=== PATIENT | female | born 1945 | race Caucasian/White ===

== ENCOUNTER → 2016-10-21 | Outpatient (CLI) | payer BC ==
[~2016-10-21] MED LIST: ASPEC81 PO; ATOR-24 PO; CALCTAB5 PO; CHOL1TAB46 PO; COEN100C6 PO; CZR50 PO; IPRA1AER2 INH; METH10TA6 PO; METO25TA56 PO; MULTTAB58 PO; OMEG-13 PO; OMEP40CA41 PO; OXGN; PSYL55.43 PO; SYMIN INH; WARF3TAB6 PO
[2016-10-21 17:08] LABS: THYROID STIMULATING HORMONE 0.562 uIu/ml (0.300-4.500)
== END | disposition home or self-care (01) ==
LOC: C.LABBC 13:13
PROVIDERS: ATTEND Internal Medicine Endocrinology, Diabetes & Metabolism
DX: R94.6 Abnormal results of thyroid function studies (principal)

== ENCOUNTER → 2016-12-21 | Outpatient (CLI) | payer BC ==
[2016-12-21 17:14] LABS: THYROID STIMULATING HORMONE 0.469 uIu/ml (0.300-4.500)
== END | disposition home or self-care (01) ==
LOC: C.LABBC 14:14
PROVIDERS: ATTEND Internal Medicine Endocrinology, Diabetes & Metabolism
DX: R94.6 Abnormal results of thyroid function studies (principal)

== ENCOUNTER → 2017-01-03 | Outpatient (CLI) | payer BC ==
[~2017-01-03] MED LIST changes: +OPTIRAY 320 IV PRN
--- NOTE | 2017-01-03 16:10 | DIAGNOSTIC IMAGING REPORT ---
CT OF THE ABDOMEN WITH AND WITHOUT CONTRAST ADRENAL PROTOCOL CT DOSE: 1802.49 mGycm CLINICAL HISTORY: Incidental adrenal cortical adenoma. TECHNIQUE: Unenhanced, venous and 15 minute delayed phase imaging of the abdomen was performed. Injection of 119 cc Optiray 320 IV was uneventful. COMPARISON STUDY: Chest CT April 07, 2014. FINDINGS: There is fatty infiltration of liver. There are gallstones within the gallbladder. A 1.2 cm nodular focus along the gallbladder fundus is unchanged and suggests adenomyomatosis. The spleen, kidneys and pancreas are normal. There is no biliary or pancreatic ductal dilatation. There is no abdominal lymphadenopathy. Note is made of a 1.4 cm right adrenal nodule which has an attenuation of -9 Hounsfield units on the unenhanced portion of this exam. This demonstrates significant washout of greater than 60%. The attenuation on the venous phase is 35 Hounsfield units and the attenuation on the delayed phase is 1 Hounsfield units. Nodule is similar to exam of April 07, 2014. A 1.5 cm left adrenal nodule is similar to prior CT as well. The attenuation of this nodule on the unenhanced portion of this exam is -13 Hounsfield units. The attenuation on the venous phase is 31 Hounsfield units and the attenuation on the delayed phases 7 Hounsfield units. This demonstrates greater than 60% washout. IMPRESSION: 1. 1.4 cm right adrenal nodule and 1.5 cm left adrenal nodule which have not significantly changed since CT of April 07, 2014. The imaging characteristics are consistent with bilateral adrenal adenomas. 2. Fatty liver. 3. Cholelithiasis. Electronically signed by: Rick Singleton M.D. 01/03/2017 4:09 PM Dictated Date/Time: 01/03/2017 3:42 PM
== END | disposition home or self-care (01) ==
LOC: C.CTS 14:13
PROVIDERS: ATTEND Internal Medicine Endocrinology, Diabetes & Metabolism
DX: D35.00 Benign neoplasm of unspecified adrenal gland (principal)

== ENCOUNTER → 2017-01-18 | Outpatient (CLI) | payer BC ==
[~2017-01-18] MED LIST changes: -OPTIRAY 320 IV PRN
[2017-01-19 06:06] LABS: ESTIMATED AVERAGE GLUCOSE 131 mg/dl; HA1C FLAG Normal (Normal)
--- NOTE | 2017-01-25 14:07 | CODING QUERY MEDICAL NECESSITY ---
CQSUPPORTING DIAGNOSIS NEEDED A supporting diagnosis is required for the test/procedure performed on this patient in order for us to be reimbursed by the patient's insurance. Please provide a supporting diagnosis for the following test/procedure listed below next to the test name along with your signature. *If there is no additional diagnosis for this patient that would support the following test/procedure please document that below next to the test/procedure. Test(s)/Procedure(s) that require a supporting diagnosis: ARYAN 01/18/17 GLYCATED HEMOGLOBIN TEST Provider Signature: Date: Thank you Janey Zelaya Health Information Management Once completed, please kindly fax back to [phone] For questions please call [phone]
== END | disposition home or self-care (01) ==
LOC: C.LABBC 11:39
PROVIDERS: ATTEND Family Medicine
DX: Z11.59 Encounter for screening for other viral diseases (principal); R73.03 Prediabetes

== ENCOUNTER → 2017-03-15 | Outpatient (CLI) | payer BC ==
--- NOTE | 2017-03-15 15:43 | MAMMOGRAPHY REPORT ---
BILATERAL DIGITAL SCREENING MAMMOGRAM WITH CAD: 03/15/2017 CLINICAL HISTORY: Routine screening. Patient has no complaints. TECHNIQUE: Bilateral CC and MLO views, and right cleavage views were obtained. Current study was als o evaluated with a Computer Aided Detection (CAD) system. COMPARISON: Comparison is made to exams dated: 03/14/2016 mammogram, 03/11/2015 mammogram, 03/10/2014 m ammogram, 02/07/2011 mammogram, 02/04/2010 mammogram - [facility], and 12/19/2008. BREAST COMPOSITION: There are scattered areas of fibroglandular density in both breasts. FINDINGS: There is a stable bilobed lucent centered circumscribed mass in the upper outer posterior r ight breast, most likely an intramammary lymph node. A stable ribbon shaped metallic biopsy marker i n the right upper outer quadrant. Bilateral benign appearing rim and rodlike calcifications. No aristides picious mass, architectural distortion or cluster of suspicious microcalcifications is seen. IMPRESSION: ACR BI-RADS CATEGORY 1: NEGATIVE There is no mammographic evidence of malignancy. A 1 year screening mammogram is recommended. The pa tient will receive written notification of the results. Approximately 10% of breast cancers are not detected with mammography. A negative mammographic report should not delay biopsy if a clinically suggestive mass is present. Chelsea López M.D. ay/:03/15/2017 14:49:57 Construction Supervisor: Karen HERRERA(Aayush)(Bijan)(BD), [facility] letter sent: Normal 1/2 BI-RADS Code: ACR BI-RADS Category 1: Negative
== END | disposition home or self-care (01) ==
LOC: C.MAMM 10:47
PROVIDERS: ATTEND Physician Assistant Medical
DX: Z12.31 Encounter for screening mammogram for malignant neoplasm of breast (principal)

== ENCOUNTER → 2017-05-04 | Outpatient (CLI) | payer BC ==
[2017-05-04 13:42] LABS: HEMATOCRIT 42.9 % (37-47); MEAN CORPUSCULAR HEMOGLOBIN 29.5 pg (25-34); MEAN CORPUSCULAR HGB CONC 33.1 g/dl (32-36); MEAN PLATELET VOLUME 11.5 fL (7.4-10.4); PLATELET COUNT 231 K/uL (130-400); RED BLOOD COUNT 4.82 M/uL (4.2-5.4)
[2017-05-04 14:35] LABS: ALT/SGPT 33 U/L (12-78); AST/SGOT 16 U/L (15-37); BLOOD UREA NITROGEN 12 mg/dl (7-18); BUN/CREATININE RATIO 13.7 (10-20); CALCIUM 8.9 mg/dl (8.5-10.1); CARBON DIOXIDE 27 mmol/L (21-32); CHLORIDE 107 mmol/L (98-107); CREATININE 0.86 mg/dl (0.60-1.20); GLUCOSE 100 mg/dl (70-99); POTASSIUM 4.3 mmol/L (3.5-5.1); SODIUM 141 mmol/L (136-145)
== END | disposition home or self-care (01) ==
LOC: C.LABBC 09:19
PROVIDERS: ATTEND Internal Medicine Cardiovascular Disease
DX: E78.00 Pure hypercholesterolemia, unspecified (principal); I10 Essential (primary) hypertension; I25.10 Atherosclerotic heart disease of native coronary artery without angina pectoris; I48.0 Paroxysmal atrial fibrillation; E55.9 Vitamin D deficiency, unspecified

== ENCOUNTER → 2017-11-03 | Outpatient (CLI) | payer BC ==
[2017-11-03 13:24] LABS: HEMATOCRIT 44.8 % (37-47); HEMOGLOBIN 14.7 g/dL (12.0-16.0); MEAN CELL VOLUME 88.7 fL (80-100); MEAN CORPUSCULAR HEMOGLOBIN 29.1 pg (25-34); MEAN CORPUSCULAR HGB CONC 32.8 g/dl (32-36); MEAN PLATELET VOLUME 10.8 fL (7.4-10.4); PLATELET COUNT 240 K/uL (130-400); RED CELL DISTRIBUTION WIDTH CV 15.6 % (11.5-14.5); RED CELL DISTRIBUTION WIDTH SD 49.9 fL (36.4-46.3); WHITE BLOOD COUNT 11.05 K/uL (4.8-10.8)
[2017-11-03 14:07] LABS: ALT/SGPT 40 U/L (12-78); AST/SGOT 16 U/L (15-37); BLOOD UREA NITROGEN 19 mg/dl (7-18); CALCIUM 9.3 mg/dl (8.5-10.1); CARBON DIOXIDE 30 mmol/L (21-32); CREATININE 0.88 mg/dl (0.60-1.20); GLUCOSE 100 mg/dl (70-99); POTASSIUM 4.2 mmol/L (3.5-5.1); SODIUM 139 mmol/L (136-145)
[2017-11-03 14:21] LABS: CHOLESTEROL 144 mg/dl (0-200); LDL CHOLESTEROL CALCULATED 56 mg/dl
== END | disposition home or self-care (01) ==
LOC: C.LABBC 09:18
PROVIDERS: ATTEND Internal Medicine Cardiovascular Disease
DX: E05.00 Thyrotoxicosis with diffuse goiter without thyrotoxic crisis or storm (principal); F17.200 Nicotine dependence, unspecified, uncomplicated; I25.10 Atherosclerotic heart disease of native coronary artery without angina pectoris; I10 Essential (primary) hypertension; I48.0 Paroxysmal atrial fibrillation; I65.29 Occlusion and stenosis of unspecified carotid artery

== ENCOUNTER → 2018-03-20 | Outpatient (CLI) | payer BC ==
[~2018-03-20] MED LIST changes: -ASPEC81 PO; +ASPI-320 PO; +AZIT-57 PO; -CALCTAB5 PO; -METH10TA6 PO; -PSYL55.43 PO; +SPRIN INH
--- NOTE | 2018-03-22 07:55 | MAMMOGRAPHY REPORT ---
BILATERAL DIGITAL SCREENING MAMMOGRAM TOMOSYNTHESIS WITH CAD: 03/20/2018 CLINICAL HISTORY: Routine screening. Patient has no complaints. TECHNIQUE: The study was acquired using full field digital technology and interpreted from soft copy. Breast tomosynthesis in addition to standard 2D mammography was performed. Current study was also ev aluated with a Computer Aided Detection (CAD) system. COMPARISON: Comparison is made to exams dated: 03/15/2017 mammogram, 03/14/2016 mammogram, and 03/11/20 15 mammogram - [facility]. BREAST COMPOSITION: There are scattered areas of fibroglandular density in both breasts. FINDINGS: There is stable focal asymmetry in the upper outer posterior right breast that appears shannan lar dating back to at least 2008, therefore likely benign. A stable ribbon-shaped biopsy marker clip is also seen in the right upper outer posterior breast. There are diffuse bilateral rodlike secreto ry calcifications and scattered benign coarse calcifications. No suspicious mass, architectural disto rtion or cluster of microcalcifications is seen. IMPRESSION: ACR BI-RADS CATEGORY 1: NEGATIVE There is no mammographic evidence of malignancy. A 1 year screening mammogram is recommended.( 019) The patient will receive written notification of the results. Some breast cancers are not detected with mammography. A negative mammographic report should not guerita y biopsy if a clinically suggestive mass is present. Chelsea López M.D. ay/:03/20/2018 16:12:36 Billet Examiner: RT Jorge(R)(M), [facility] letter sent: Normal 1/2 BI-RADS Code: ACR BI-RADS Category 1: Negative
== END | disposition home or self-care (01) ==
LOC: C.MAMM 13:04
PROVIDERS: ATTEND Physician Assistant Medical
DX: Z12.31 Encounter for screening mammogram for malignant neoplasm of breast (principal)

== ENCOUNTER 2019-10-16 03:45 | Inpatient (IN) ==
[2019-10-16 05:09] LABS: Basophils # (auto) 0.03 K/uL (0-0.2); Basophils % (auto) 0.3 %; Hematocrit (blood only) 42.2 % (37-47); Hemoglobin 13.8 g/dL (12.0-16.0); Immature Granulocytes # (auto) 0.03 K/uL (0.00-0.02); Immature Granulocytes % (auto) 0.3 %; Lymphocytes # (auto) 0.97 K/uL (1.2-3.4); Mean Corpuscular Hemoglobin 29.1 pg (25-34); Mean Corpuscular Hgb Conc 32.7 g/dL (32-36); Mean Corpuscular Volume 88.8 fL (80-100); Mean Platelet Volume 10.8 fL (7.4-10.4); Monocytes # (auto) 0.48 K/uL (0.11-0.59); Monocytes % (auto) 4.9 %; Neutrophils # (auto) 8.23 K/uL (1.4-6.5); Neutrophils % (auto) 84.5 %; Platelet Count 205 K/uL (130-400); RDW Coefficient of Variation 15.2 % (11.5-14.5); RDW Standard Deviation 49.4 fL (36.4-46.3); Red Blood Count 4.75 M/uL (4.2-5.4); White Blood Count 9.74 K/uL (4.8-10.8)
[2019-10-16 05:21] LABS: INR 1.9 (0.9-1.1); Partial Thromboplastin Ratio 1.3; Partial Thromboplastin Time 34.9 Seconds (21.0-31.0); Prothrombin Time 18.5 Seconds (9.0-12.0)
[2019-10-16 05:26] LABS: Albumin Level 3.5 gm/dl (3.4-5.0); BUN Creatinine Ratio 19.9 (10-20); Calcium 9.1 mg/dl (8.5-10.1); Creatinine Clr Calc Pharmacy 69.1 ml/min; Est GFR (African American) 75.5; Est GFR (Non-African American) 65.2; Potassium 4.6 mmol/L (3.5-5.1)
[2019-10-16 05:29] LABS: Albumin Globulin Ratio 0.9 (0.9-2); Bilirubin,Total 0.3 mg/dl (0.2-1); Globulin 3.9 gm/dl (2.5-4.0); Total Protein 7.4 gm/dl (6.4-8.2)
[2019-10-16 05:46] LABS: Appearance Urine Clear (Clear); Bacteria Urine Automated Negative (Negative); Bilirubin Urine Negative (Negative); Blood Urine 2+ (Negative); Color Urine Yellow; Epithelial Cell Urine Auto 20-30 /lpf (0-5); Glucose Urine UA Negative (Negative); Ketones Urine Negative (Negative); Leukocyte Esterase Urine Negative (Negative); Nitrite Urine Negative (Negative); Protein Urine 2+ (Negative); RBC Urine Automated 0-4 /hpf (0-4); Specific Gravity Urine 1.019 (1.000-1.030); Urobilinogen Urine Negative (Negative)
[2019-10-16 06:17] LABS: Troponin I 0.017 ng/ml (0-0.045)
--- NOTE | 2019-10-16 06:57 | XRay Report ---
XR chest 1V portable CLINICAL HISTORY: SOB dyspnea COMPARISON STUDY: 01/23/2018 FINDINGS: Mild stable cardiac megaly. Chronic prominence of the pulmonary vasculature. Diaphragms are smooth. No focal infiltrate. IMPRESSION: Mild chronic pulmonary vascular congestion. No acute process. ACT 112: Negative or not required by law. The above report was generated using voice recognition software. It may contain grammatical, syntax or spelling errors. Electronically signed by: Paulo Castillo M.D. 10/16/2019 6:56 AM
[2019-10-16] MEDS ORDERED: FUROSEMIDE 40 MG/4 ML VIAL IV STA (07:03)
--- NOTE | 2019-10-16 07:51 | History & Physical Report ---
Date of Service October 16, 2019 Assessment & Plan (1) Acute on chronic respiratory failure with hypoxia: patient normally on 2.5-3L NC and wears CPAP every night with more dyspnea, more hypoxia and work of breathing for past 48 hours she had some steroids and "antibiotic" at home that made her feel a little better CXR with no obvious infiltrate, some mild pulmonary edema will give Lasix 40mg IV (in the ED) and follow response keep CPAP in place for now because she is feeling better on it Solu Medrol 50 q12, use Levalbuterol because she was flipping in and out of atrial flutter in the ED (2) Acute heart failure with preserved ejection fraction: echo in August 2019 showed EF of 65%, will not repeat at this time Lasix 40mg IV given in the Ed, will follow for response today continue metoprolol (3) Atrial flutter: in and out of atrial flutter in the ED, has a h/o afib and aflutter, on metoprolol and Coumadin INR is 1.9, continue Coumadin will receive metoprolol this morning admit to PCU for close monitoring will consult Dr. Morfin who follows her outpatient, has a h/o tachy alicia syndrome (4) COPD exacerbation: no wheezing heard but patient also has decreased breath sounds will give Solu medrol 50 q12, Levalbuterol no signs of purulence so will hold on antibiotics (5) Type 2 diabetes mellitus: diabetic diet Novolog monitor for hyperglycemia on the Solu Medrol (6) Hypercholesterolemia: statin therapy (7) CAD in [place] artery: no chest pain, no ischemic changes on the monitor continue aspirin, statin (8) S/P coronary artery stent placement: had NV in 2014 with one stent placed no current chest pain continue aspirin (9) Obstructive sleep apnea: CPAP at night, she brought in her own machine, may use History of Present Illness Chief Complaint: I feel like I can't breath Primary Care Provider: Dakotah Holliday, DO 74 yo female with long history of COPD on Symbicort, Spiriva and nebulizers at home as well as a history of paroxysmal atrial fibrillation/flutter who presents to the ED this morning due to worsening shortness of breath. She reports that her symptoms started two days ago, she took some antibiotics and steroids that she had at home from prior prescription. She says that the steroids seemed to help her. She did not have a cough, just noticed that she was more short of breath. No fever or chills. She did not see any swelling in her legs. She does not routinely take her weight so unsure if she gained weight. Her breathing started to get worse so she came to the ED this morning. She was given a nebulizer in the ambulance and placed on BIPAP. She was breathing more comfortably on the BIPAP. She was in atrial flutter on the monitor but converted to NSR after coughing. CXR showed bilateral pulmonary edema. Her BNP was slightly elevated. She was given Lasix 40mg IV in the ED and started to diurese. Discussed with her daughter, she has a history of non-compliance and self medicating. Allergies Allergy/AdvReac Type Severity Reaction Status Date / Time cephalexin AdvReac Mild PT BECOMES Verified 10/16/19 05:33 ANXIOUS lisinopril AdvReac Mild COUGH Verified 10/16/19 05:33 Home Medications Home Medications Medication Instructions Recorded Confirmed Type budesonide-formoterol HFA 160 2 puffs INH BID #6 gm 01/29/19 10/16/19 Rx mcg-4.5 mcg/actuation aerosol inhaler blood sugar diagnostic #100 ea 01/30/19 08/05/19 Rx lancets 30 gauge #100 ea 01/30/19 08/05/19 Rx Spiriva with HandiHaler 1 cap INH QAM 03/15/19 10/16/19 History aspirin 81 mg PO QAM 03/15/19 10/16/19 History cannabidiol 15 mg PO QAM 03/15/19 10/16/19 History coenzyme Q10 [Co Q-10] 100 mg PO QAM 03/15/19 10/16/19 History omega 0-yju-nxn-fish oil [Fish Oil] 1 cap PO QAM 03/15/19 10/16/19 History omeprazole 40 mg PO QAM 03/15/19 10/16/19 History CPAP Machine #1 ea 03/30/19 07/17/19 History Oxygen Home #1 ea 03/30/19 07/17/19 History blood sugar diagnostic #10 ea 03/30/19 08/05/19 History lancets 33 gauge #100 ea 03/30/19 06/06/19 History atorvastatin 40 mg tablet 40 mg PO HS #90 tab 04/15/19 10/16/19 Rx losartan 50 mg tablet 50 mg PO QAM #90 tab 04/15/19 10/16/19 Rx warfarin 1 mg tablet 1 mg PO .COMPLEX #360 tab 05/07/19 10/16/19 Rx calcium carbonate 600 mg calcium 600 mg PO DAILY tab 05/24/19 10/16/19 History (1,500 mg) tablet ipratropium 0.5 mg-albuterol 3 mg 3 ml INHALATION QID #360 ml 07/18/19 10/16/19 Rx (2.5 mg base)/3 mL nebulization soln metoprolol tartrate 25 mg tablet 25 mg PO BID #180 tab 07/30/19 10/16/19 Rx albuterol sulfate 90 mcg/actuation 2 puffs INH Q6H PRN #54 gm 08/05/19 10/16/19 Rx aerosol inhaler cholecalciferol (vitamin D3) 1,000 unit PO 5XWK 10/16/19 10/16/19 History [Vitamin D3] zmmlabeb-lwl-VC-lycopen-lutein 1 tab PO DAILY 10/16/19 10/16/19 History [Senior Tabs] Past Med/Surg History Medical History Anxiety CAD in [place] artery (Chronic) Carotid artery stenosis Chronic obstructive pulmonary disease oxygen, nebulizer qid, inhalers COPD, severe (Chronic) Dependence on supplemental oxygen (Chronic) Depression GERD (gastroesophageal reflux disease) History of colon polyps History of colon polyps HTN (hypertension) (Chronic) Hypercholesterolemia (Chronic) Hyperlipidemia Hypertension Irregular heart rate from as low as 40 up to afib--started on Multaq 02/15/2019--pt states she has not had "any episodes of low heart rate or afib in the last 2 weeks"--follows with Dr. Morfin Laryngopharyngeal reflux (Chronic) senior living (current) use of anticoagulants Myocardial Infarction 09/2014 Obstructive sleep apnea (Chronic) On anticoagulant therapy warfarin daily On home oxygen therapy 2-3L N/C at all times Osteoarthritis Paroxysmal atrial fibrillation (Chronic) Personal history of nicotine dependence Prediabetes Sleep apnea cpap with 2.5L N/C Type 2 diabetes mellitus (Chronic) Surgical History History of arthroscopy of left knee History of arthroscopy of right knee History of bilateral cataract extraction History of cardiac cath 09/[address] [facility] follow with Dr. Morfin History of colonoscopy History of heart artery stent x1 09/2014 History of tooth extraction S/P coronary artery stent placement Status post laser cataract surgery of both eyes had procedure done after cataract removal Status post trigger finger release left hand thumb Family History Grandmother (Maternal) Family history of diabetes mellitus Mother Family hx of colon cancer Other No family history of adverse response to anesthesia Social History Preferred Language: Bruneian Communication Ability: Effective Hearing Ability: Normal Kids Club Attendant Required: No Beliefs That Will Affect Care: None marital status: / Current Living Situation: Alone current occupational status: retired Other Information That Helps Us Care for You: No Feels Safe at Home: Yes Safety Concerns: Feels Safe At This Time Smoking Status: Former smoker Tobacco Type: cigarettes ; Age Started Using Tobacco: 16 ; Cigarettes Per Day: 1 pack a week ; Do You Dip or Chew Tobacco: No ; Second Hand Exposure: No ; Tobacco Cessation Education Requested by Patient: No Hx Alcohol Use: No Hx Substance Use: No Childhood Exposure to Second-Hand Smoke: Yes caffeine: Yes Dental Care, Regularly: No Seatbelt Use: always Sunscreen Use: No Review of Systems Review of Systems: All systems reviewed & are unremarkable except as noted in HPI & below Constitutional: + fatigue and + weakness; no fever and no sweats Respiratory: + cough, + dyspnea and + dyspnea on exertion; no pain with cough, no sputum production and no wheezing Cardiovascular: + dyspnea and + dyspnea on exertion; no chest pain, no palpitations, no syncope and no edema Gastrointestinal: no abdominal pain, no nausea, no vomiting, no constipation and no diarrhea/loose stools Physical Exam Constitutional: well developed, well nourished, + obese and + in distress (mild) Eyes: PERRL, conjunctivae normal, anicteric sclerae ENMT: external ear and nose normal, oropharynx normal Neck: trachea midline, no thyromegaly Respiratory: + labored breathing, + cough and + tachypneic Auscultation: + diminished lung sounds and + rales (bases); no wheezes Cardiovascular: Rate/Rhythm: + tachycardic and + irregularly irregular Heart Sounds: normal S1 and normal S2; no murmur Extremities: normal capillary refill; no edema Gastrointestinal (Abdomen): normal bowel sounds, soft, nontender, no hepatosplenomegaly Musculoskeletal: no cyanosis or clubbing, extremities motor strength 5/5 Skin: no rashes, warm and dry Neurologic: patellar DTR's 2+ bilat, sensation intact and PERRL, EOMI, accommodation nl, no face palsy, no dysarthria Psychiatric: A+Ox3, euthymic affect Lymphatic: no cervical or axillary lymphadenopathy Results & Data Vital Signs (Past 12 Hours) Vital Signs Temp Pulse Pulse Resp BP BP Pulse Ox 10/16/19 07:14 88 18 114/81 96 10/16/19 06:34 148 H 114/81 97 10/16/19 05:38 152 H 24 125/85 97 10/16/19 05:02 37.1 C 10/16/19 05:01 95 10/16/19 04:56 148 H 37 H 96 10/16/19 04:42 89 20 125/65 97 10/16/19 04:37 155 H 16 133/100 97 10/16/19 03:55 154 H 26 H 133/100 96 10/16/19 03:36 26 H 96 Laboratory Results Laboratory Results - last 24 hr 10/16/19 10/16/19 10/16/19 04:55 04:55 04:55 WBC 9.74 RBC 4.75 Hgb 13.8 Hct 42.2 MCV 88.8 MCH 29.1 MCHC 32.7 RDW Std Deviation 49.4 H RDW Coeff of Mark 15.2 H Plt Count 205 MPV 10.8 H Immature Gran % (Auto) 0.3 Neut % (Auto) 84.5 Lymph % (Auto) 10.0 Porter % (Auto) 4.9 Eos % (Auto) 0.0 Baso % (Auto) 0.3 Immature Gran # (Auto) 0.03 H Neut # (Auto) 8.23 H Lymph # (Auto) 0.97 L Porter # (Auto) 0.48 Eos # (Auto) 0.00 Baso # (Auto) 0.03 PT 18.5 H INR 1.9 H APTT 34.9 H PTT Ratio 1.3 Sodium 136 Potassium 4.6 Chloride 105 Carbon Dioxide 26 Anion Gap 5.0 BUN 17 Creatinine 0.88 Est Cr Clr Drug Dosing 69.1 Est GFR ( Amer) 75.5 Est GFR (Non-Af Amer) 65.2 BUN/Creatinine Ratio 19.9 Glucose 155 H POC Glucose Calcium 9.1 Total Bilirubin 0.3 AST 33 ALT 50 Alkaline Phosphatase 54 Troponin I NT-Pro-B Natriuret Pep Total Protein 7.4 Albumin 3.5 Globulin 3.9 Albumin/Globulin Ratio 0.9 Urine Color Urine Appearance Urine pH Ur Specific [place] Urine Protein Urine Glucose (UA) Urine Ketones Urine Blood Urine Nitrite Urine Bilirubin Urine Urobilinogen Ur Leukocyte Esterase Urine WBC (Auto) Urine RBC (Auto) U Hyaline Cast (Auto) U Epithel Cells (Auto) Urine Bacteria (Auto) Influenza Type A Ag Influenza Type B Ag 10/16/19 10/16/19 10/16/19 04:55 04:55 05:35 WBC RBC Hgb Hct MCV MCH MCHC RDW Std Deviation RDW Coeff of Mark Plt Count MPV Immature Gran % (Auto) Neut % (Auto) Lymph % (Auto) Porter % (Auto) Eos % (Auto) Baso % (Auto) Immature Gran # (Auto) Neut # (Auto) Lymph # (Auto) Porter # (Auto) Eos # (Auto) Baso # (Auto) PT INR APTT PTT Ratio Sodium Potassium Chloride Carbon Dioxide Anion Gap BUN Creatinine Est Cr Clr Drug Dosing Est GFR ( Amer) Est GFR (Non-Af Amer) BUN/Creatinine Ratio Glucose POC Glucose Calcium Total Bilirubin AST ALT Alkaline Phosphatase Troponin I 0.017 NT-Pro-B Natriuret Pep 1786 H Total Protein Albumin Globulin Albumin/Globulin Ratio Urine Color Yellow Urine Appearance Clear Urine pH 5.0 Ur Specific [place] 1.019 Urine Protein 2+ H Urine Glucose (UA) Negative Urine Ketones Negative Urine Blood 2+ H Urine Nitrite Negative Urine Bilirubin Negative Urine Urobilinogen Negative Ur Leukocyte Esterase Negative Urine WBC (Auto) 1-5 Urine RBC (Auto) 0-4 U Hyaline Cast (Auto) 1-5 U Epithel Cells (Auto) 20-30 H Urine Bacteria (Auto) Negative Influenza Type A Ag Neg for Influ A Influenza Type B Ag Neg for Influ B 10/16/19 10/16/19 11:56 16:21 WBC RBC Hgb Hct MCV MCH MCHC RDW Std Deviation RDW Coeff of Mark Plt Count MPV Immature Gran % (Auto) Neut % (Auto) Lymph % (Auto) [place] % (Auto) Eos % (Auto) Baso % (Auto) Immature Gran # (Auto) Neut # (Auto) Lymph # (Auto) Porter # (Auto) Eos # (Auto) Baso # (Auto) PT INR APTT PTT Ratio Sodium Potassium Chloride Carbon Dioxide Anion Gap BUN Creatinine Est Cr Clr Drug Dosing Est GFR ( Amer) Est GFR (Non-Af Amer) BUN/Creatinine Ratio Glucose POC Glucose 165 H 130 H Calcium Total Bilirubin AST ALT Alkaline Phosphatase Troponin I NT-Pro-B Natriuret Pep Total Protein Albumin Globulin Albumin/Globulin Ratio Urine Color Urine Appearance Urine pH Ur Specific [place] Urine Protein Urine Glucose (UA) Urine Ketones Urine Blood Urine Nitrite Urine Bilirubin Urine Urobilinogen Ur Leukocyte Esterase Urine WBC (Auto) Urine RBC (Auto) U Hyaline Cast (Auto) U Epithel Cells (Auto) Urine Bacteria (Auto) Influenza Type A Ag Influenza Type B Ag Diagnostic Findings XR chest 1V portable CLINICAL HISTORY: SOB dyspnea COMPARISON STUDY: 01/23/2018 FINDINGS: Mild stable cardiac megaly. Chronic prominence of the pulmonary vasculature. Diaphragms are smooth. No focal infiltrate. IMPRESSION: Mild chronic pulmonary vascular congestion. No acute process. ECG Indication: SOB/dyspnea Rhythm: atrial flutter (rate 140) Findings: no acute ischemic change Code Status & VTE Plan Code Status full code VTE Prophylaxis Plan VTE Prophylaxis will be ordered: Yes PG Care Time/CCT Total # of Minutes Spent Total Time Spent with Patient: Total time spent is greater than 50% in coordination of care (as documented) at patient's floor/unit and/or counseling patient: Coding Level of Care Code 32453 Initial Inpt Care Lvl 3 Diagnoses Acute on chronic respiratory failure with hypoxia J96.21 Acute heart failure with preserved ejection fraction I50.31 Atrial flutter I48.92 Atrial flutter type: unspecified COPD exacerbation J44.1 Type 2 diabetes mellitus E11.9 Hypercholesterolemia E78.00 CAD in [place] artery I25.10 S/P coronary artery stent placement Z95.5 Obstructive sleep apnea G47.33 (1) Atrial flutter Atrial flutter type: unspecified Qualified Code(s): I48.92 - Unspecified atrial flutter
--- NOTE | 2019-10-16 08:10 | Emergency Department Note ---
Entered by Lisbet Powers acting as a scribe for Latha Song DO History of Present Illness General Chief complaint: Shortness of Breath/Dyspnea Stated complaint: SHORT OF BREATH Time Seen by Provider: 10/16/19 04:13 Source: patient History of Present Illness Onset (ago): day(s) (2) Location: chest Pain Consistency: + intermittent Quality: + other (shortness of breath ) Associated symptoms: + denies other symptoms (abdominal pain) The patient is a 74 year old female who presents to the Emergency Room with complaints of intermittent shortness of breath beginning 2 days ago. The patient reports she took leftover steroids for the past two days because she was feeling more short of breath. She denies abdominal pain. She denies having bronchitis or pneumonia this year. She does have a history of COPD but no history of CHF. The patient notes a history of a-fib. She notes she is on Coumadin. He explains that she called 911 [facility] because she could not get enough air in. Home Medications Home Medications Medication Instructions Recorded Confirmed Type budesonide-formoterol HFA 160 2 puffs INH BID #6 gm 01/29/19 10/16/19 Rx mcg-4.5 mcg/actuation aerosol inhaler blood sugar diagnostic #100 ea 01/30/19 08/05/19 Rx lancets 30 gauge #100 ea 01/30/19 08/05/19 Rx Spiriva with HandiHaler 1 cap INH QAM 03/15/19 10/16/19 History aspirin 81 mg PO QAM 03/15/19 10/16/19 History cannabidiol 15 mg PO QAM 03/15/19 10/16/19 History coenzyme Q10 [Co Q-10] 100 mg PO QAM 03/15/19 10/16/19 History omega 3-siu-yhk-fish oil [Fish Oil] 1 cap PO QAM 03/15/19 10/16/19 History omeprazole 40 mg PO QAM 03/15/19 10/16/19 History CPAP Machine #1 ea 03/30/19 07/17/19 History Oxygen Home #1 ea 03/30/19 07/17/19 History blood sugar diagnostic #10 ea 03/30/19 08/05/19 History lancets 33 gauge #100 ea 03/30/19 06/06/19 History atorvastatin 40 mg tablet 40 mg PO HS #90 tab 04/15/19 10/16/19 Rx losartan 50 mg tablet 50 mg PO QAM #90 tab 04/15/19 10/16/19 Rx warfarin 1 mg tablet 1 mg PO .COMPLEX #360 tab 05/07/19 10/16/19 Rx calcium carbonate 600 mg calcium 600 mg PO DAILY tab 05/24/19 10/16/19 History (1,500 mg) tablet ipratropium 0.5 mg-albuterol 3 mg 3 ml INHALATION QID #360 ml 07/18/19 10/16/19 Rx (2.5 mg base)/3 mL nebulization soln metoprolol tartrate 25 mg tablet 25 mg PO BID #180 tab 07/30/19 10/16/19 Rx albuterol sulfate 90 mcg/actuation 2 puffs INH Q6H PRN #54 gm 08/05/19 10/16/19 Rx aerosol inhaler cholecalciferol (vitamin D3) 1,000 unit PO [id number] 10/16/19 10/16/19 History [Vitamin D3] fvfwkure-bjd-KS-lycopen-lutein 1 tab PO DAILY 10/16/19 10/16/19 History [Senior Tabs] Allergies Allergy/AdvReac Type Severity Reaction Status Date / Time cephalexin AdvReac Mild PT BECOMES Verified 10/16/19 05:33 ANXIOUS lisinopril AdvReac Mild COUGH Verified 10/16/19 05:33 Past Med/Surg History Medical History (Updated 10/16/19 @ 19:18 by Mani Morfin MD) Anxiety 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) Carotid artery stenosis Chronic obstructive pulmonary disease oxygen, nebulizer qid, inhalers COPD, severe (Chronic) Dependence on supplemental oxygen (Chronic) Depression GERD (gastroesophageal reflux disease) History of colon polyps History of colon polyps HTN (hypertension) (Chronic) Hypercholesterolemia (Chronic) Hyperlipidemia Hypertension Irregular heart rate Laryngopharyngeal reflux (Chronic) 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 Beliefs That Will Affect Care: None marital status: / Current Living Situation: Alone current occupational status: retired Other Information That Helps Us Care for You: No Feels Safe at Home: Yes Safety Concerns: Feels Safe At This Time Smoking Status: Former smoker Tobacco Type: cigarettes ; Age Started Using Tobacco: 16 ; Cigarettes Per Day: 1 pack a week ; Do You Dip or Chew Tobacco: No ; Second Hand Exposure: No ; Tobacco Cessation Education Requested by Patient: No Hx Alcohol Use: No Hx Substance Use: No Childhood Exposure to Second-Hand Smoke: Yes caffeine: Yes Dental Care, Regularly: No Seatbelt Use: always Sunscreen Use: No Review of Systems See HPI for pertinent positives & negatives. and A total of 10 systems reviewed and were otherwise negative Physical Exam Vital Signs Vital Signs - 24 hr 10/16/19 03:36 10/16/19 03:55 10/16/19 04:37 Temperature Temperature Source Pulse Rate 154 H Pulse Rate [Apical] 155 H Pulse Rhythm Regular Pulse Rhythm [Apical] Regular Pulse Strength Normal Respiratory Rate 26 H 26 H 16 Respiratory Effort / Characteristics Spontaneous Labored Short of Breath Spontaneous Labored Short of Breath Non-Labored Spontaneous Respiratory Depth Shallow Normal Respiratory Pattern Tachypnea Tachypnea Regular Blood Pressure 133/100 Blood Pressure [Right Arm] 133/100 Blood Pressure Mean 111 Blood Pressure Mean [Right Arm] 111 Blood Pressure Position Sitting Pulse Oximetry 96 96 97 Oxygen Delivery Method BiPAP BiPAP CPAP Fraction of Inspired Oxygen 30 40 SaO2/FiO2 Ratio 320 242 Sepsis Recent Fever Within 48 Hours No Sepsis Action Taken by Nursing No Action Required 10/16/19 04:42 10/16/19 04:56 10/16/19 05:01 Temperature Temperature Source Pulse Rate 148 H Pulse Rate [Apical] 89 Pulse Rhythm Pulse Rhythm [Apical] Regular Pulse Strength Respiratory Rate 20 37 H Respiratory Effort / Characteristics SOB on Exertion Spontaneous Respiratory Depth Respiratory Pattern Tachypnea Blood Pressure Blood Pressure [Right Arm] 125/65 Blood Pressure Mean Blood Pressure Mean [Right Arm] 85 Blood Pressure Position Pulse Oximetry 97 96 95 Oxygen Delivery Method CPAP CPAP Fraction of Inspired Oxygen 40 SaO2/FiO2 Ratio Sepsis Recent Fever Within 48 Hours Sepsis Action Taken by Nursing 10/16/19 05:02 10/16/19 05:38 10/16/19 06:34 Temperature 37.1 C Temperature Source Oral Pulse Rate Pulse Rate [Apical] 152 H 148 H Pulse Rhythm Pulse Rhythm [Apical] Regular Irregular Pulse Strength Respiratory Rate 24 Respiratory Effort / Characteristics Short of Breath Respiratory Depth Respiratory Pattern Blood Pressure Blood Pressure [Right Arm] 125/85 114/81 Blood Pressure Mean Blood Pressure Mean [Right Arm] 98 92 Blood Pressure Position Pulse Oximetry 97 97 Oxygen Delivery Method CPAP CPAP Fraction of Inspired Oxygen 40 SaO2/FiO2 Ratio 242 Sepsis Recent Fever Within 48 Hours Sepsis Action Taken by Nursing 10/16/19 07:14 Temperature Temperature Source Pulse Rate Pulse Rate [Apical] 88 Pulse Rhythm Pulse Rhythm [Apical] Pulse Strength Respiratory Rate 18 Respiratory Effort / Characteristics Non-Labored Respiratory Depth Normal Respiratory Pattern Blood Pressure Blood Pressure [Right Arm] 114/81 Blood Pressure Mean Blood Pressure Mean [Right Arm] 92 Blood Pressure Position Pulse Oximetry 96 Oxygen Delivery Method Fraction of Inspired Oxygen SaO2/FiO2 Ratio Sepsis Recent Fever Within 48 Hours Sepsis Action Taken by Nursing General: CPAP in place HEENT: Head - normocephalic and atraumatic. Pupils are equal, round, and reactive to light. Extraocular eye muscles are intact, and sclera are anicteric. Nose - moist nasal mucosa without discharge. Mouth -dry buccal mucosa with CPAP in place. Neck: Supple; no JVD, nuchal rigidity, cervical lymphadenopathy. Heart: Tachycardic rate and rhythm. There is a normal S1 and S2 with no murmurs, clicks, or gallops appreciated. Lungs: Very minimal air movement with rhonchi/Rales at both bases. Abdomen: Soft, completely nontender, nondistended, with good bowel sounds. There are no palpable pulsatile masses or hepatosplenomegaly. There is no guarding, rigidity, or rebound noted. Extremities: 1+ pedal edema. No evidence of cyanosis or clubbing. There are easily palpable peripheral pulses. Skin: warm and dry with good turgor and no rashes. Course Course 0450: Past medical records reviewed. The patient was evaluated in room A11B. A complete history and physical exam was performed. Laboratory studies were drawn as above. The patient was placed on CPAP here in the emergency department. An order was placed for continuous cardiac monitoring. The patient remained in atrial flutter with rapid ventricular response at a 2-1 rate. When the patient would cough, it would break into a normal sinus rhythm in the 80s. She had a twelve-lead EKG obtained. She felt much more comfortable on the CPAP here in the emergency department. She had a portable chest x-ray performed. 0505: The patient remains hemodynamically stable and comfortable at this time. I reviewed the results of the chest x-ray with the patient. She denies any history of congestive heart failure. I added some laboratory testing to the bloods that were already drawn. 0550: Upon reevaluation, I discussed findings and results with the patient. She verbalized agreement of the treatment plan. I ordered IV Lasix. She is currently in a flutter at a rate of 124. 0625: Patient remains hemodynamically stable. She remains on the CPAP. She is currently in a normal sinus rhythm. 700: I discussed the case with Dr. Boggs from the [facility] Hospitalist group. And he will evaluate for further management. Administered Medications Aspirin (Ecotrin Ectab) 81 mg PO QAM SAMUEL Stop: 11/15/19 08:59 Last Admin: 10/16/19 10:12 Dose: 81 mg Documented by: [id number] Atorvastatin Calcium (Lipitor) 40 mg PO HS SAMUEL Stop: 11/15/19 20:59 Last Admin: 10/16/19 21:14 Dose: 40 mg Documented by: [id number] Diltiazem HCl (Cardizem) 30 mg PO TID SAMUEL Stop: 11/15/19 20:59 Last Admin: 10/16/19 21:14 Dose: 30 mg Documented by: [id number] Methylprednisolone 50 mg/ (Syringe) 0.8 mls @ 1.5 mls/min IV Q12 SAMUEL Stop: 11/15/19 08:59 Last Admin: 10/16/19 21:14 Dose: 1.5 mls/min Documented by: [id number] Admin: 10/16/19 10:12 Dose: 1.5 mls/min Documented by: [id number] Insulin Aspart (Novolog Flexpen) 0 units SC ACHS [facility] Stop: 11/15/19 11:29 Last Admin: 10/16/19 21:15 Dose: Not Given Documented by: [id number] Cosigned by: [id number] Admin: 10/16/19 17:13 Dose: 2 units Documented by: [id number] Cosigned by: [id number] Admin: 10/16/19 12:28 Dose: 5 units Documented by: [id number] Cosigned by: [id number] Ipratropium [place] (Atrovent 0.02% 0.5mg/2.5ml) 0.5 mg INH Q6R [facility] Stop: 11/15/19 12:59 Last Admin: 10/16/19 18:52 Dose: 0.5 mg Documented by: [id number] Admin: 10/16/19 12:39 Dose: 0.5 mg Documented by: [id number] Levalbuterol HCl (Xopenex 1.25mg/0.5ml Neb) 1.25 mg INH Q6R [facility] Stop: 11/15/19 12:59 Last Admin: 10/16/19 18:52 Dose: 1.25 mg Documented by: [id number] Admin: 10/16/19 12:39 Dose: 1.25 mg Documented by: [id number] Losartan Potassium (Cozaar) [facility] Stop: 11/15/19 08:59 Last Admin: 10/16/19 10:12 Dose: 50 mg Documented by: [id number] Metoprolol Tartrate (Lopressor) 25 mg PO BID [facility] Stop: 11/15/19 08:59 Last Admin: 10/16/19 21:14 Dose: 25 mg Documented by: [id number] Admin: 10/16/19 10:12 Dose: 25 mg Documented by: [id number] Miscellaneous Medication (Medical Marijuana) 1 dose [facility] Stop: 11/15/19 09:14 Last Admin: 10/16/19 11:12 Dose: 1 dose Documented by: [id number] Pantoprazole Sodium (Protonix) 40 mg PO [facility] Stop: 11/15/19 08:59 Last Admin: 10/16/19 10:12 Dose: 40 mg Documented by: [id number] Warfarin Sodium (Coumadin) 4 mg PO [id number] [facility] Stop: 11/15/19 15:59 Last Admin: 10/16/19 16:28 Dose: 4 mg Documented by: [id number] Discontinued Medications Diltiazem HCl (Cardizem) 30 mg PO NOW ONE Stop: 10/16/19 17:30 Last Admin: 10/16/19 18:17 Dose: 30 mg Documented by: [id number] Furosemide (Lasix) 40 mg IV NOW STA Stop: 10/16/19 07:04 Last Admin: 10/16/19 07:32 Dose: 40 mg Documented by: [id number] Furosemide 40 mg/ Syringe 4 mls @ 4 mls/min IV ONE ONE Stop: 10/16/19 14:01 Last Admin: 10/16/19 13:38 Dose: 4 mls/min Documented by: [id number] Levalbuterol HCl (Xopenex 1.25mg/0.5ml Neb) 1.25 mg NEB NOW STA Stop: 10/16/19 13:37 Last Admin: 10/16/19 15:21 Dose: 1.25 mg Documented by: [id number] Metoprolol Tartrate (Lopressor) 5 mg IV NOW STA Stop: 10/16/19 12:52 Last Admin: 10/16/19 12:56 Dose: 5 mg Documented by: [id number] Metoprolol Tartrate (Lopressor) Confirm Administered Dose 5 mg IV .STK-MED ONE Stop: 10/16/19 12:53 Last Admin: 10/16/19 12:57 Dose: Not Given Documented by: [id number] Metoprolol Tartrate (Lopressor) 25 mg PO NOW ONE Stop: 10/16/19 16:28 Last Admin: 10/16/19 16:29 Dose: 25 mg Documented by: [id number] Critical Care Time Critical Care Time: Yes Total Critical Care Time: 50 I have personally spent 50 minutes of critical care time in the direct management of this patient. This includes bedside care, interpretation of diagnostic studies, and testing, discussion with consultants, patient, and family members, and other required patient management activities. This 50 minutes is in excess of all separately billable procedures. Medical Decision Making Differential Diagnosis Differential diagnosis: CHF, COPD exacerbation, pneumonia, bronchitis, PE, influenza Medical Records Attestation: I reviewed the patient's medical records. Home Medications Current Medication List: was personally reviewed by me Laboratory Data Attestation: I reviewed the patient's lab results. Result diagrams: 10/16/19 04:55 10/16/19 04:55 Lab Results 10/16/19 10/16/19 10/16/19 Range/Units 04:55 04:55 04:55 WBC 9.74 (4.8-10.8) K/uL RBC 4.75 (4.2-5.4) M/uL Hgb 13.8 (12.0-16.0) g/dL Hct 42.2 (37-47) % MCV 88.8 (80-100) fL MCH 29.1 (25-34) pg MCHC 32.7 (32-36) g/dL RDW Std Deviation 49.4 H (36.4-46.3) fL RDW Coeff of Mark 15.2 H (11.5-14.5) % Plt Count 205 (130-400) K/uL MPV 10.8 H (7.4-10.4) fL Immature Gran % (Auto) 0.3 % Neut % (Auto) 84.5 % Lymph % (Auto) 10.0 % Russell % (Auto) 4.9 % Eos % (Auto) 0.0 % Baso % (Auto) 0.3 % Immature Gran # (Auto) 0.03 H (0.00-0.02) K/uL Neut # (Auto) 8.23 H (1.4-6.5) K/uL Lymph # (Auto) 0.97 L (1.2-3.4) K/uL Russell # (Auto) 0.48 (0.11-0.59) K/uL Eos # (Auto) 0.00 (0-0.5) K/uL Baso # (Auto) 0.03 (0-0.2) K/uL PT 18.5 H (9.0-12.0) Seconds INR 1.9 H (0.9-1.1) APTT 34.9 H (21.0-31.0) Seconds PTT Ratio 1.3 Sodium 136 (136-145) mmol/L Potassium 4.6 (3.5-5.1) mmol/L Chloride 105 (98-107) mmol/L Carbon Dioxide 26 (21-32) mmol/L Anion Gap 5.0 (3-11) BUN 17 (7-18) mg/dl Creatinine 0.88 (0.6-1.2) mg/dl Est Cr Clr Drug Dosing 69.1 ml/min Est GFR ( Amer) 75.5 Est GFR (Non-Af Amer) 65.2 BUN/Creatinine Ratio 19.9 (10-20) Glucose 155 H (70-99) mg/dl Calcium 9.1 (8.5-10.1) mg/dl Total Bilirubin 0.3 (0.2-1) mg/dl AST 33 (15-37) U/L ALT 50 (12-78) U/L Alkaline Phosphatase 54 (45-117) U/L Troponin I (0-0.045) ng/ml NT-Pro-B Natriuret Pep (0-900) pg/ml Total Protein 7.4 (6.4-8.2) gm/dl Albumin 3.5 (3.4-5.0) gm/dl Globulin 3.9 (2.5-4.0) gm/dl Albumin/Globulin Ratio 0.9 (0.9-2) Urine Color Urine Appearance (Clear) Urine pH (4.5-7.5) Ur Specific [place] (1.000-1.030) Urine Protein (Negative) Urine Glucose (UA) (Negative) Urine Ketones (Negative) Urine Blood (Negative) Urine Nitrite (Negative) Urine Bilirubin (Negative) Urine Urobilinogen (Negative) Ur Leukocyte Esterase (Negative) Urine WBC (Auto) (0-5) /hpf Urine RBC (Auto) (0-4) /hpf U Hyaline Cast (Auto) (0-5) /lpf U Epithel Cells (Auto) (0-5) /lpf Urine Bacteria (Auto) (Negative) Influenza Type A Ag (Neg) Influenza Type B Ag (Neg) 10/16/19 10/16/19 10/16/19 Range/Units 04:55 04:55 05:35 WBC (4.8-10.8) K/uL RBC (4.2-5.4) M/uL Hgb (12.0-16.0) g/dL Hct (37-47) % MCV (80-100) fL MCH (25-34) pg MCHC (32-36) g/dL RDW Std Deviation (36.4-46.3) fL RDW Coeff of Mark (11.5-14.5) % Plt Count (130-400) K/uL MPV (7.4-10.4) fL Immature Gran % (Auto) % Neut % (Auto) % Lymph % (Auto) % Russell % (Auto) % Eos % (Auto) % Baso % (Auto) % Immature Gran # (Auto) (0.00-0.02) K/uL Neut # (Auto) (1.4-6.5) K/uL Lymph # (Auto) (1.2-3.4) K/uL Russell # (Auto) (0.11-0.59) K/uL Eos # (Auto) (0-0.5) K/uL Baso # (Auto) (0-0.2) K/uL PT (9.0-12.0) Seconds INR (0.9-1.1) APTT (21.0-31.0) Seconds PTT Ratio Sodium (136-145) mmol/L Potassium (3.5-5.1) mmol/L Chloride (98-107) mmol/L Carbon Dioxide (21-32) mmol/L Anion Gap (3-11) BUN (7-18) mg/dl Creatinine (0.6-1.2) mg/dl Est Cr Clr Drug Dosing ml/min Est GFR ( Amer) Est GFR (Non-Af Amer) BUN/Creatinine Ratio (10-20) Glucose (70-99) mg/dl Calcium (8.5-10.1) mg/dl Total Bilirubin (0.2-1) mg/dl AST (15-37) U/L ALT (12-78) U/L Alkaline Phosphatase (45-117) U/L Troponin I 0.017 (0-0.045) ng/ml NT-Pro-B Natriuret Pep 1786 H (0-900) pg/ml Total Protein (6.4-8.2) gm/dl Albumin (3.4-5.0) gm/dl Globulin (2.5-4.0) gm/dl Albumin/Globulin Ratio (0.9-2) Urine Color Yellow Urine Appearance Clear (Clear) Urine pH 5.0 (4.5-7.5) Ur Specific [place] 1.019 (1.000-1.030) Urine Protein 2+ H (Negative) Urine Glucose (UA) Negative (Negative) Urine Ketones Negative (Negative) Urine Blood 2+ H (Negative) Urine Nitrite Negative (Negative) Urine Bilirubin Negative (Negative) Urine Urobilinogen Negative (Negative) Ur Leukocyte Esterase Negative (Negative) Urine WBC (Auto) 1-5 (0-5) /hpf Urine RBC (Auto) 0-4 (0-4) /hpf U Hyaline Cast (Auto) 1-5 (0-5) /lpf U Epithel Cells (Auto) 20-30 H (0-5) /lpf Urine Bacteria (Auto) Negative (Negative) Influenza Type A Ag Neg for Influ A (Neg) Influenza Type B Ag Neg for Influ B (Neg) Imaging Data Radiologist's Impression: Radiology results as stated below per my review and the radiologist's interpretation: XR chest 1V portable CLINICAL HISTORY: SOB dyspnea COMPARISON STUDY: 01/23/2018 FINDINGS: Mild stable cardiac megaly. Chronic prominence of the pulmonary vasculature. Diaphragms are smooth. No focal infiltrate. IMPRESSION: Mild chronic pulmonary vascular congestion. No acute process. ACT 112: Negative or not required by law. The above report was generated using voice recognition software. It may contain grammatical, syntax or spelling errors. Electronically signed by: Paulo Castillo M.D. 10/16/2019 6:56 AM ECG Data Attestation: I personally reviewed and interpreted this ECG as follows: Indication: + SOB/dyspnea Rate (beats per minute): 157 Rhythm: + atrial flutter ECG ST segments: no ST depression and no ST elevation ECG Findings: + Other (two to one conduction); no PACs and no PVCs Blood Pressure Blood Pressure Findings: Elevated blood pressure Blood Pressure Disposition: further management by hospitalist NAZIA Monroe The patient is a 74 year old female who presents to the Emergency Room with complaints of intermittent shortness of breath beginning 2 days ago. The patient has a history of COPD. She describes feeling well approximately 3 to 4 days ago. Once she started to feel increasingly short of breath, she started taking an old prescription of steroids. Tonight, she felt acutely short of breath and as if she could not get enough air in. She called 911. They found her to be hypoxic and placed her on CPAP. This improved her symptoms as did DuoNeb treatments. On chest x-ray, the patient appears to be in congestive heart failure. She responded well to CPAP and was given IV Lasix here in the emergency department. She was noted to be in atrial flutter which she does have a history of. She is currently on Coumadin with an INR of 1.9. The patient's troponin is normal at this time but will require trending. [facility] for further m anagement. Impression & Plan Hypoxia, CHF (congestive heart failure), Atrial flutter, COPD (chronic obstructive pulmonary disease) Discharge Plan Visit Data *Final* Discharge Date/Time: 10/16/19 08:16 Chief Complaint: Shortness of Breath/Dyspnea Stated Complaint: SHORT OF BREATH ED Provider: Latha Song Discharge Problem: Hypoxia, CHF (congestive heart failure), Atrial flutter, COPD (chronic obstructive pulmonary disease) Patient Disposition: Admitted As Inpatient Discharge Instructions Interventions: ED Discharge Assessment Last Done: 10/16/19 08:16 Discharge Problem: Atrial flutter Qualifiers: Atrial flutter type: unspecified Qualified Code(s): I48.92 - Unspecified atrial flutter COPD (chronic obstructive pulmonary disease) Qualifiers: COPD type: unspecified COPD Qualified Code(s): J44.9 - Chronic obstructive pulmonary disease, unspecified The scribe's documentation has been prepared under my direction and personally reviewed by me in its entirety. I confirm that the note above accurately reflects all work, treatment, procedures, and medical decision making performed by me.
[2019-10-16] MEDS ORDERED: ONDANSETRON INJ 2 MG/ML 2 ML VIAL IV PRN (08:53)
[2019-10-16] MEDS ORDERED: ACETAMINOPHEN 325 MG TAB PO PRN (08:53)
[2019-10-16] MEDS: LOSARTAN POTASSIUM 50 MG TAB PO SCH (10:12)
[2019-10-16] MEDS: PANTOprazole 40 MG TAB PO SCH (10:12)
[2019-10-16] MEDS: ASPIRIN 81 MG ECTAB PO SCH (10:12)
[2019-10-16] MEDS: methylPREDNISolone 50 MG in SYRINGE 0 ML IV SCH ×2 (10:12→21:14)
[2019-10-16] MEDS: METOPROLOL TARTRATE 25 MG TAB PO SCH ×2 (10:12→21:14)
[2019-10-16] MEDS: MEDICAL MARIJUANA PO SCH (11:12)
[2019-10-16] MEDS: INSULIN ASPART 100 UNITS/ML 3 ML PEN SC SCH ×3 (12:28→21:15)
[2019-10-16] MEDS: IPRATROPIUM BROMIDE NEB SOLN 0.02% 2.5 ML VIAL INH SCH ×2 (12:39→18:52)
[2019-10-16] MEDS: LEVALBUTEROL 1.25MG/0.5ML NEB INH SCH ×2 (12:39→18:52)
[2019-10-16] MEDS ORDERED: METOPROLOL TARTRATE 1 MG/ML VIAL IV STA (12:51)
[2019-10-16] MEDS ORDERED: METOPROLOL TARTRATE 1 MG/ML VIAL IV ONE (12:52)
[2019-10-16] MEDS ORDERED: XOPENEX/ATROVENT 1.25mg/0.5MG NEB COMBO NEB SCH (13:00)
[2019-10-16] MEDS ORDERED: LEVALBUTEROL 1.25MG/0.5ML NEB NEB STA (13:36)
[2019-10-16] MEDS ORDERED: FUROSEMIDE 40 MG in SYRINGE 0 ML IV ONE (14:00)
[2019-10-16] MEDS ORDERED: METOPROLOL TARTRATE 25 MG TAB PO ONE (16:27)
[2019-10-16] MEDS: WARFARIN SOD 4 MG TAB PO SCH (16:28)
[2019-10-16] MEDS ORDERED: dilTIAZem HCL 30 MG TAB PO ONE (17:29)
--- NOTE | 2019-10-16 19:07 | Cardiology Consultation ---
Date of Consultation October 16, 2019 Assessment & Plan (1) Paroxysmal atrial fibrillation: (2) Acute on chronic respiratory failure with hypoxia: (3) Carotid artery stenosis: (4) CAD in [place]: ASSESSMENT/PLAN: 1. Paroxysmal atrial fibrillation: Currently in what appears to be atrial fibrillation versus flutter. She has a history of paroxysmal atrial fibrillation and symptoms have been reasonably controlled on rate controlling medications. She has been evaluated by Dr. Vincent of electrophysiology who recommends rate-controlling strategy rather than anti rhythmic therapy or ablation. Potential pacemaker placement has also been discussed. She had discontinue diltiazem as an outpatient due to bradycardia. Continue metoprolol tartrate 25 mg twice daily. At home she sometimes takes an additional dose at mid day. Recommend resuming diltiazem and if she is found to have significant bradycardia, would once again consider pacemaker for tachy-alicia syndrome. Continue anticoagulation for stroke risk reduction. She has declined NOAC agents. 2. Acute on chronic respiratory failure with hypoxia: She does not appear hypervolemic on exam. Chest x-ray findings are chronic and stable. Her weight has been down at home. She does not have a history of CHF and although could developed CHF in the future, her symptoms currently appear to be predominantly from her severe COPD, which is a chronic issue for her. Monitor renal function and electrolytes following diuresis. 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 COPD treatment as per primary hospitalist. 3. CAD with NSTEMI (10/20/14) and PCI: No angina despite reported elevated heart rates. Continue aspirin 81 mg daily indefinitely. Plavix has been discontinued after 1 year therapy as she is on anticoagulation and aspirin. Continue beta supa and high intensity statin therapy. 4. Hypertension: Blood pressure is currently reasonably controlled. Continue current regimen with addition of diltiazem as above. 5. Carotid artery stenosis: There has been progression noted ICA stenosis. We discussed these findings today from her outpatient study. Recommend vascular follow-up as an outpatient. 6. Disposition: Cardiology will continue to follow to assist in her atrial arrhythmia. Please call with any other questions or concerns. Patient care discussed with Dr. Boggs with a primary hospitalist service. Thank you for allowing me to participate in the care of your patient. Please call for any other questions or concerns. Sincerely, Joseluis Morfin M.D. History of Present Illness Reason for Consultation: Atrial flutter. Concern for acute diastolic CHF. Requesting Physician: Dr. Boggs Attending Physician: Ton Boggs DO History of Present Illness Mrs. Pena is a very pleasant 74-year-old female with a history significant for CAD, NSTEMI (Sep 2014 with a peak trop of 3.54 upon presentation), asthmatic bronchitis/COPD on 2.5 - 4 L of supplemental oxygen, hypertension, paroxysmal atrial fibrillation, and dyslipidemia. She also has sleep apnea on CPAP each night. She has had the following studies/procedures: 1. Echo 10/20/14: Normal LV size and systolic function. Mid inferolateral wall appears hypokinetic. EF 60%. Mild left atrial dilation. Sclerotic aortic valve without stenosis. 2. Cardiac cath and PCI 10/20/14: Separate ostia for LAD and circumflex. Mid RCA 99% subtotal stenosis. LVEDP 20 mmHg. No aortic stenosis. 3.5 x 23 mm XIENCE MIHIR. Postdilated with 4 x 8 mm noncompliant balloon in proximal and mid stent. 3. Event monitor 11/06/2014 to 12/05/2014: Sinus rhythm with paroxysmal atrial fibrillation with a RVR. No significant bradycardia or pauses. No symptoms reported. 4. Carotid duplex 10/26/2017: Right ICA less than 50%. Left ICA 50-69%. 5. Event monitor 03/01/2019 to 03/14/2019: Sinus rhythm. Paroxysmal AFib with RVR. PACs. Symptoms occurred during AFib and ectopy. 6. Holter 06/25/2019: Sinus rhythm with average heart rate 87, ranging 75-107. No diary submitted. 7. Carotid duplex 09/09/2019: Left ICA greater than 70%. Right ICA less than 50%. 8. Echo 09/09/2019: Normal LV size, wall motion, systolic function. EF 60-65%. Poor image quality. Valves not well seen. She was admitted on 10/16/2019 with progressively worsening shortness of breath. Symptoms started 2 days ago, on Monday with worsening shortness of breath from baseline, especially dyspnea with exertion. She has had a cough, but mostly nonproductive. When productive, sputum was white with a little bit of yellow. She denies chest pain, syncope, near-syncope, edema, or bleeding such as melena, hematochezia, or hematuria. She has been feeling unstable on her feet and felt chills on Monday, but no documented fever. For her atrial arrhythmia, she was seen by electrophysiology in June. It was felt that rate control strategy would be the more likely successful route to treat her. Diltiazem was initiated in addition to her metoprolol. She noted heart rates in the upper 30s to 40s on her pulse oximeter at home and therefore discontinue diltiazem in July. She did not have any significant palpitations until she developed worsening shortness of breath earlier this week. She was found to be in what appears to be atrial fibrillation versus atrial flutter with rapid ventricular response while here. She feels palpitations intermittently with this. Pre-hospital, she took steroids at home that she had left over from prior prescription. She feels as though that her symptoms did start to improve. She was placed on BiPAP in the emergency department which improved her breathing. She was also given Lasix 40 mg IV x1 along with nebulizer treatments. Her symptoms are improving. She believes that her symptoms are similar to prior COPD exacerbations. She has not previously been diagnosed with heart failure and has not required diuretics as an outpatient. She maintains a low-sodium diet and reports weight loss of greater than 10 lb over the past couple of months. She attributes this to a change in her diet. She denies orthopnea, PND, or edema. Review of systems: As above. Review of systems otherwise negative/unremarkable. Family history: No known premature CAD. Social history: She quit smoking in July of 2019. She has smoked for greater than 50 years, up to one pack per day. Denies alcohol or drug abuse. She is retired from [employer] services at [employer]. She is a . She has one daughter, Danna. She is unaccompanied in her hospital room. Allergies Allergy/AdvReac Type Severity Reaction Status Date / Time cephalexin AdvReac Mild PT BECOMES Verified 10/16/19 05:33 ANXIOUS lisinopril AdvReac Mild COUGH Verified 10/16/19 05:33 Home Medications Home Medications Medication Instructions Recorded Confirmed Type budesonide-formoterol HFA 160 2 puffs INH BID #6 gm 01/29/19 10/16/19 Rx mcg-4.5 mcg/actuation aerosol inhaler blood sugar diagnostic #100 ea 01/30/19 08/05/19 Rx lancets 30 gauge #100 ea 01/30/19 08/05/19 Rx Spiriva with HandiHaler 1 cap INH QAM 03/15/19 10/16/19 History aspirin 81 mg PO QAM 03/15/19 10/16/19 History cannabidiol 15 mg PO QAM 03/15/19 10/16/19 History coenzyme Q10 [Co Q-10] 100 mg PO QAM 03/15/19 10/16/19 History omega 9-dcp-zmu-fish oil [Fish Oil] 1 cap PO QAM 03/15/19 10/16/19 History omeprazole 40 mg PO QAM 03/15/19 10/16/19 History CPAP Machine #1 ea 03/30/19 07/17/19 History Oxygen Home #1 ea 03/30/19 07/17/19 History blood sugar diagnostic #10 ea 03/30/19 08/05/19 History lancets 33 gauge #100 ea 03/30/19 06/06/19 History atorvastatin 40 mg tablet 40 mg PO HS #90 tab 04/15/19 10/16/19 Rx losartan 50 mg tablet 50 mg PO QAM #90 tab 04/15/19 10/16/19 Rx warfarin 1 mg tablet 1 mg PO .COMPLEX #360 tab 05/07/19 10/16/19 Rx calcium carbonate 600 mg calcium 600 mg PO DAILY tab 05/24/19 10/16/19 History (1,500 mg) tablet ipratropium 0.5 mg-albuterol 3 mg 3 ml INHALATION QID #360 ml 07/18/19 10/16/19 Rx (2.5 mg base)/3 mL nebulization soln metoprolol tartrate 25 mg tablet 25 mg PO BID #180 tab 07/30/19 10/16/19 Rx albuterol sulfate 90 mcg/actuation 2 puffs INH Q6H PRN #54 gm 08/05/19 10/16/19 Rx aerosol inhaler cholecalciferol (vitamin D3) 1,000 unit PO 5XWK 10/16/19 10/16/19 History [Vitamin D3] bbutowxi-ytx-TU-lycopen-lutein 1 tab PO DAILY 10/16/19 10/16/19 History [Senior Tabs] Patient History Medical History Anxiety CAD in [place] (Chronic) Carotid artery stenosis Chronic obstructive pulmonary disease oxygen, nebulizer qid, inhalers COPD, severe (Chronic) Dependence on supplemental oxygen (Chronic) Depression GERD (gastroesophageal reflux disease) History of colon polyps History of colon polyps HTN (hypertension) (Chronic) Hypercholesterolemia (Chronic) Hyperlipidemia Hypertension Irregular heart rate from as low as 40 up to afib--started on Multaq 02/15/2019--pt states she has not had "any episodes of low heart rate or afib in the last 2 weeks"--follows with Dr. 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 Morfin History of colonoscopy History of heart artery stent x1 09/2014 History of tooth extraction S/P coronary artery stent placement Status post laser cataract surgery of both eyes had procedure done after cataract removal Status post trigger finger release left hand thumb Family History Grandmother (Maternal) Family history of diabetes mellitus Mother Family hx of colon cancer Other No family history of adverse response to anesthesia Social History Preferred Language: Belgian Communication Ability: Effective Hearing Ability: Normal Helpdesk Specialist Required: No Beliefs That Will Affect Care: None marital status: / Current Living Situation: Alone current occupational status: retired Other Information That Helps Us Care for You: No Feels Safe at Home: Yes Safety Concerns: Feels Safe At This Time Smoking Status: Former smoker Tobacco Type: cigarettes ; Age Started Using T obacco: 16 ; Cigarettes Per Day: 1 pack a week ; Do You Dip or Chew Tobacco: No ; Second Hand Exposure: No ; Tobacco Cessation Education Requested by Patient: No Hx Alcohol Use: No Hx Substance Use: No Childhood Exposure to Second-Hand Smoke: Yes caffeine: Yes Dental Care, Regularly: No Seatbelt Use: always Sunscreen Use: No Physical Exam Physical Exam: Gen.: No acute distress. Alert and oriented. HEENT: Anicteric sclera. Neck: No JVD or hepatic jugular reflux. Normal carotid upstrokes bilaterally. Cardiac: PMI was nonpalpable. No ventricular heave. Irregularly irregular. Normal S1-S2. No audible murmur. No rubs or gallops. Pulmonary: Decreased breath sounds throughout. Clear to auscultation bilaterally without wheezes, rales, or rhonchi. Abdomen: Soft, nontender, nondistended, with normoactive bowel sounds. No bruits noted. Extremities: 2+ radial pulses bilaterally. 2+ posterior tibialis pulses bilaterally. No edema. No cyanosis. Psychiatric: Affect appears appropriate. Results & Data ([facility]) Vital Signs (Past 12 Hours) Vital Signs Temp Pulse Pulse Resp BP Pulse Ox 10/16/19 18:52 81 20 94 10/16/19 15:38 36.8 C 126 H 20 119/70 92 10/16/19 15:15 79 22 92 10/16/19 12:56 135 H 10/16/19 12:40 114 H 19 90 10/16/19 11:27 36.2 C L 115 H 18 109/68 91 10/16/19 10:20 88 10/16/19 08:41 36.8 C 92 H 25 H 164/75 H 94 10/16/19 07:51 90 20 144/84 H 97 10/16/19 07:14 88 18 114/81 96 Intake & Output 10/14/19 10/15/19 10/16/19 10/17/19 06:59 06:59 06:59 06:59 Intake Total 400 / 400 200 / 200 Output Total 900 / 900 Balance 400 / 400 -700 / -700 Weight 113.5 kg 113.5 kg Laboratory Results Laboratory Results - last 24 hr 10/16/19 10/16/19 10/16/19 04:55 04:55 04:55 WBC 9.74 RBC 4.75 Hgb 13.8 Hct 42.2 MCV 88.8 MCH 29.1 MCHC 32.7 RDW Std Deviation 49.4 H RDW Coeff of Mark 15.2 H Plt Count 205 MPV 10.8 H Immature Gran % (Auto) 0.3 Neut % (Auto) 84.5 Lymph % (Auto) 10.0 [place] % (Auto) 4.9 Eos % (Auto) 0.0 Baso % (Auto) 0.3 Immature Gran # (Auto) 0.03 H Neut # (Auto) 8.23 H Lymph # (Auto) 0.97 L [place] # (Auto) 0.48 Eos # (Auto) 0.00 Baso # (Auto) 0.03 PT 18.5 H INR 1.9 H APTT 34.9 H PTT Ratio 1.3 Sodium 136 Potassium 4.6 Chloride 105 Carbon Dioxide 26 Anion Gap 5.0 BUN 17 Creatinine 0.88 Est Cr Clr Drug Dosing 69.1 Est GFR ( Amer) 75.5 Est GFR (Non-Af Amer) 65.2 BUN/Creatinine Ratio 19.9 Glucose 155 H POC Glucose Calcium 9.1 Total Bilirubin 0.3 AST 33 ALT 50 Alkaline Phosphatase 54 Troponin I NT-Pro-B Natriuret Pep Total Protein 7.4 Albumin 3.5 Globulin 3.9 Albumin/Globulin Ratio 0.9 Urine Color Urine Appearance Urine pH Ur Specific [place] Urine Protein Urine Glucose (UA) Urine Ketones Urine Blood Urine Nitrite Urine Bilirubin Urine Urobilinogen Ur Leukocyte Esterase Urine WBC (Auto) Urine RBC (Auto) U Hyaline Cast (Auto) U Epithel Cells (Auto) Urine Bacteria (Auto) Influenza Type A Ag Influenza Type B Ag 10/16/19 10/16/19 10/16/19 04:55 04:55 05:35 WBC RBC Hgb Hct MCV MCH MCHC RDW Std Deviation RDW Coeff of Mark Plt Count MPV Immature Gran % (Auto) Neut % (Auto) Lymph % (Auto) [place] % (Auto) Eos % (Auto) Baso % (Auto) Immature Gran # (Auto) Neut # (Auto) Lymph # (Auto) [place] # (Auto) Eos # (Auto) Baso # (Auto) PT INR APTT PTT Ratio Sodium Potassium Chloride Carbon Dioxide Anion Gap BUN Creatinine Est Cr Clr Drug Dosing Est GFR ( Amer) Est GFR (Non-Af Amer) BUN/Creatinine Ratio Glucose POC Glucose Calcium Total Bilirubin AST ALT Alkaline Phosphatase Troponin I 0.017 NT-Pro-B Natriuret Pep 1786 H Total Protein Albumin Globulin Albumin/Globulin Ratio Urine Color Yellow Urine Appearance Clear Urine pH 5.0 Ur Specific [place] 1.019 Urine Protein 2+ H Urine Glucose (UA) Negative Urine Ketones Negative Urine Blood 2+ H Urine Nitrite Negative Urine Bilirubin Negative Urine Urobilinogen Negative Ur Leukocyte Esterase Negative Urine WBC (Auto) 1-5 Urine RBC (Auto) 0-4 U Hyaline Cast (Auto) 1-5 U Epithel Cells (Auto) 20-30 H Urine Bacteria (Auto) Negative Influenza Type A Ag Neg for Influ A Influenza Type B Ag Neg for Influ B 10/16/19 10/16/19 11:56 16:21 WBC RBC Hgb Hct MCV MCH MCHC RDW Std Deviation RDW Coeff of Mark Plt Count MPV Immature Gran % (Auto) Neut % (Auto) Lymph % (Auto) [place] % (Auto) Eos % (Auto) Baso % (Auto) Immature Gran # (Auto) Neut # (Auto) Lymph # (Auto) [place] # (Auto) Eos # (Auto) Baso # (Auto) PT INR APTT PTT Ratio Sodium Potassium Chloride Carbon Dioxide Anion Gap BUN Creatinine Est Cr Clr Drug Dosing Est GFR ( Amer) Est GFR (Non-Af Amer) BUN/Creatinine Ratio Glucose POC Glucose 165 H 130 H Calcium Total Bilirubin AST ALT Alkaline Phosphatase Troponin I NT-Pro-B Natriuret Pep Total Protein Albumin Globulin Albumin/Globulin Ratio Urine Color Urine Appearance Urine pH Ur Specific [place] Urine Protein Urine Glucose (UA) Urine Ketones Urine Blood Urine Nitrite Urine Bilirubin Urine Urobilinogen Ur Leukocyte Esterase Urine WBC (Auto) Urine RBC (Auto) U Hyaline Cast (Auto) U Epithel Cells (Auto) Urine Bacteria (Auto) Influenza Type A Ag Influenza Type B Ag Diagnostic Findings Echo and carotid duplex report reviewed as noted above in the HPI. Chest x-ray 10/16/2019 personally reviewed: No obvious infiltrate. No pleural effusion. Vascular markings appear stable compared to prior study on 01/23/2018. Radiology reports chronic prominence of pulmonary vasculature without acute process. ECG personally reviewed: ECG 10/16/2019: Atrial fibrillation versus flutter at [address] abnormality. Medications Administered Current Inpatient Medications Acetaminophen (Tylenol) 650 mg PO Q4H PRN PRN Reason: Pain or Fever Stop: 11/15/19 08:52 Aspirin (Ecotrin Ectab) 81 mg PO QAM [facility] Stop: 11/15/19 08:59 Last Admin: 10/16/19 10:12 Dose: 81 mg Documented by: Atorvastatin Calcium (Lipitor) 40 mg PO HS [facility] Stop: 11/15/19 20:59 Diltiazem HCl (Cardizem) 30 mg PO TID [facility] Stop: 11/15/19 20:59 Methylprednisolone 50 mg/ (Syringe) 0.8 mls @ 1.5 mls/min IV Q12 [facility] Stop: 11/15/19 08:59 Last Admin: 10/16/19 10:12 Dose: 1.5 mls/min Documented by: Insulin Aspart (Novolog Flexpen) 0 units SC ACHS [facility] Stop: 11/15/19 11:29 Last Admin: 10/16/19 17:13 Dose: 2 units Documented by: Ipratropium [place] (Atrovent 0.02% 0.5mg/2.5ml) 0.5 mg INH Q6R [facility] Stop: 11/15/19 12:59 Last Admin: 10/16/19 18:52 Dose: 0.5 mg Documented by: Levalbuterol HCl (Xopenex 1.25mg/0.5ml Neb) 1.25 mg INH Q6R [facility] Stop: 11/15/19 12:59 Last Admin: 10/16/19 18:52 Dose: 1.25 mg Documented by: Losartan Potassium (Cozaar) 50 mg PO QAM [facility] Stop: 11/15/19 08:59 Last Admin: 10/16/19 10:12 Dose: 50 mg Documented by: Metoprolol Tartrate (Lopressor) 25 mg PO BID [facility] Stop: 11/15/19 08:59 Last Admin: 10/16/19 10:12 Dose: 25 mg Documented by: Miscellaneous Medication (Medical Marijuana) 1 dose PO QAM [facility] Stop: 11/15/19 09:14 Last Admin: 10/16/19 11:12 Dose: 1 dose Documented by: Ondansetron HCl (Zofran) 4 mg IV Q6H PRN PRN Reason: Nausea Stop: 11/15/19 08:52 Pantoprazole Sodium (Protonix) 40 mg PO QAM [facility] Stop: 11/15/19 08:59 Last Admin: 10/16/19 10:12 Dose: 40 mg Documented by: Warfarin Sodium (Coumadin) 4 mg PO [email or web address] [facility] Stop: 11/15/19 15:59 Last Admin: 10/16/19 16:28 Dose: 4 mg Documented by: Warfarin Sodium (Coumadin) 3 mg PO [email or web address] [facility] Stop: 11/16/19 15:59 PG Care Time/CCT Total # of Minutes Spent Total Time Spent with Patient: Total time spent is greater than 50% in coordination of care (as documented) at patient's floor/unit and/or counseling patient: Coding Level of Care Code 14862 Initial Inpt Care Lvl 3 Diagnoses Paroxysmal atrial fibrillation I48.0 Acute on chronic respiratory failure with hypoxia J96.21 Carotid artery stenosis I65.29 CAD in [place] I25.10
--- NOTE | 2019-10-16 19:10 | Electrocardiogram Report ---
Test Reason : Blood Pressure : / mmHG Vent. Rate : 157 BPM Atrial Rate : 314 BPM P-R Int : 000 ms QRS Dur : 074 ms QT Int : 232 ms P-R-T Axes : 000 068 041 degrees QTc Int : 375 ms Probable Atrial fibrillation with rapid ventricular response vs atrial flutter Nonspecific ST abnormality Abnormal ECG When compared with ECG of 23-JAN-2018 12:22, Atrial fibrillation has replaced Sinus rhythm Vent. rate has increased BY [address] now depressed in Inferior leads ST now depressed in Lateral leads Confirmed by Mani Morfin ([id number]) on 10/16/2019 7:10:18 PM Referred By: REFERRED SELF Confirmed By:Mani Morfin
[2019-10-16] MEDS: ATORVASTATIN 40 MG TAB PO SCH (21:14)
[2019-10-16] MEDS: dilTIAZem HCL 30 MG TAB PO SCH (21:14)
[2019-10-17] MEDS: LEVALBUTEROL 1.25MG/0.5ML NEB INH SCH ×4 (00:37→19:39)
[2019-10-17] MEDS: IPRATROPIUM BROMIDE NEB SOLN 0.02% 2.5 ML VIAL INH SCH ×4 (00:37→19:39)
[2019-10-17 07:40] LABS: Hematocrit (blood only) 46.1 % (37-47); Hemoglobin 14.9 g/dL (12.0-16.0); Mean Corpuscular Hgb Conc 32.3 g/dL (32-36); Mean Corpuscular Volume 89.7 fL (80-100); Platelet Count 246 K/uL (130-400); RDW Coefficient of Variation 15.1 % (11.5-14.5); RDW Standard Deviation 49.6 fL (36.4-46.3); Red Blood Count 5.14 M/uL (4.2-5.4); White Blood Count 12.19 K/uL (4.8-10.8)
[2019-10-17] MEDS: LOSARTAN POTASSIUM 50 MG TAB PO SCH (07:59)
[2019-10-17] MEDS: dilTIAZem HCL 30 MG TAB PO SCH (08:00)
[2019-10-17] MEDS: MEDICAL MARIJUANA PO SCH (08:00)
[2019-10-17] MEDS: ASPIRIN 81 MG ECTAB PO SCH (08:00)
[2019-10-17] MEDS: PANTOprazole 40 MG TAB PO SCH (08:00)
[2019-10-17] MEDS: methylPREDNISolone 50 MG in SYRINGE 0 ML IV SCH (08:00)
[2019-10-17] MEDS: INSULIN ASPART 100 UNITS/ML 3 ML PEN SC SCH ×4 (08:02→20:43)
[2019-10-17 08:17] LABS: BUN Creatinine Ratio 30.1 (10-20); Creatinine Clr Calc Pharmacy 46.2 ml/min; Est GFR (African American) 46.7; Est GFR (Non-African American) 40.3; Potassium 4.5 mmol/L (3.5-5.1)
[2019-10-17] MEDS: METOPROLOL TARTRATE 25 MG TAB PO SCH ×2 (08:36→20:38)
[2019-10-17] MEDS ORDERED: STAT IV Infusion **Titration per Protocol STA ×2 (09:17→09:21)
[2019-10-17] MEDS ORDERED: dilTIAZem HCl 5 MG/ML 5 ML VIAL IV ONE ×2 (09:30)
[2019-10-17] MEDS ORDERED: dilTIAZem HCL 125 MG in DEXTROSE 5% 100 ML IV SCH (09:30)
[2019-10-17] MEDS: dilTIAZem HCL 125 MG in DEXTROSE 5% 100 ML IV SCH (09:36)
--- NOTE | 2019-10-17 09:36 | Cardiology Progress Note ---
Date of Service October 17, 2019 Assessment & Plan (1) Paroxysmal atrial fibrillation: (2) Acute on chronic respiratory failure with hypoxia: (3) Carotid artery stenosis: (4) CAD in [place] artery: ASSESSMENT/PLAN: 1. Paroxysmal atrial fibrillation: Afib remains with RVR. She has a history of paroxysmal atrial fibrillation and symptoms have been reasonably controlled on rate controlling medications. She has been evaluated by Dr. Vincent of electrophysiology who recommends rate-controlling strategy rather than anti rhythmic therapy or ablation. Potential pacemaker placement has also been discussed. She had discontinue diltiazem as an outpatient due to bradycardia. Continue metoprolol tartrate 25 mg twice daily. Her rate will hopefully improve with improved respiratory status. Still tachycardic with oral dilt while here. Rather than further titrating oral meds at this time given bradycardia while in sinus on more rate controlling meds, recommend dilt gtt so that it can be titrated and removed more quickly if she converts. Continue anticoagulation for stroke risk reduction. She has declined NOAC agents. 2. Acute on chronic respiratory failure with hypoxia: She does not appear hypervolemic on exam. With diuresis, she now appears azotemic and reports no improvement in her breathing. Chest x-ray findings are chronic and stable. Her weight has been down at home. She does not have a history of CHF and although could developed CHF in the future, her symptoms currently appear to be predominantly from her severe COPD, which is a chronic issue for her. Encouraged drinking more fluids today due to azotemic labs. COPD treatment as per primary hospitalist. 3. CAD with NSTEMI (10/20/14) and PCI: No angina despite reported elevated heart rates. Continue aspirin 81 mg daily indefinitely. Continue beta supa and high intensity statin therapy. 4. Hypertension: Blood pressure is well controlled. Continue current regimen with addition of diltiazem gtt as above. 5. Carotid artery stenosis: There has been progression noted ICA stenosis. Recommend vascular follow-up as an outpatient. 6. Disposition: Cardiology will continue to follow to assist in her atrial fibrillation. Plan of care/recommendations discussed with Dr. Boggs of the primary hospital service this morning. Admission and Anticipated Discharge Date Admission Date: October 16, 2019 Subjective She states that her breathing is no better. Still SOB. No chest pain. Occasional palpitations. No edema or bleeding. She denies syncope. She is alone in her hospital room. Review of systems: as above. Physical Exam Physical Exam: Gen.: No acute distress. Alert and oriented. HEENT: Anicteric sclera. Neck: No JVD or hepatic jugular reflux. Cardiac: PMI was nonpalpable. No ventricular heave. Irregularly irregular and tachycardic. Normal S1-S2. No audible murmur. No rubs or gallops. Pulmonary: Decreased breath sounds throughout. Clear to auscultation bilaterally without wheezes, rales, or rhonchi. Abdomen: Soft, nontender, nondistended, with normoactive bowel sounds. No bruits noted. Extremities: No edema. No cyanosis. Psychiatric: Affect appears appropriate. Results & Data ([facility]) Vital Signs (Past 12 Hours) Vital Signs Temp Pulse Pulse Resp BP Pulse Ox Pulse Ox 10/17/19 07:38 36.8 C 114 H 16 131/64 96 10/17/19 07:16 113 H 20 94 10/17/19 03:29 36.7 C 116 H 20 120/83 92 10/17/19 00:37 90 18 92 10/17/19 00:16 87 10/16/19 23:45 117 H 10/16/19 23:04 36.5 C 93 H 19 108/71 93 10/16/19 21:53 95 Intake & Output 10/15/19 10/16/19 10/17/19 10/18/19 06:59 06:59 06:59 06:59 Intake Total 400 / 400 575 / 575 Output Total 2225 / 2225 Balance 400 / 400 -1650 / -1650 Weight 113.5 kg 112.6 kg Laboratory Results Laboratory Results - last 24 hr 10/16/19 10/16/19 10/16/19 11:56 16:21 20:33 WBC RBC Hgb Hct MCV MCH MCHC RDW Std Deviation RDW Coeff of Mark Plt Count MPV Sodium Potassium Chloride Carbon Dioxide Anion Gap BUN Creatinine Est Cr Clr Drug Dosing Est GFR ( Amer) Est GFR (Non-Af Amer) BUN/Creatinine Ratio Glucose POC Glucose 165 H 130 H 126 H Calcium 10/17/19 10/17/19 10/17/19 07:16 07:16 07:26 WBC 12.19 H RBC 5.14 Hgb 14.9 Hct 46.1 MCV 89.7 MCH 29.0 MCHC 32.3 RDW Std Deviation 49.6 H RDW Coeff of Mark 15.1 H Plt Count 246 MPV 11.0 H Sodium 139 Potassium 4.5 Chloride 102 Carbon Dioxide 31 Anion Gap 5.0 BUN 39 H D Creatinine 1.31 H D Est Cr Clr Drug Dosing 46.2 Est GFR ( Amer) 46.7 Est GFR (Non-Af Amer) 40.3 BUN/Creatinine Ratio 30.1 H Glucose 134 H POC Glucose 145 H Calcium 10.0 Diagnostic Findings Telemetry personally reviewed: Afib with improved HR overnight but quite tachycardic while awake. Medications Administered Current Inpatient Medications Acetaminophen (Tylenol) 650 mg PO Q4H PRN PRN Reason: Pain or Fever Stop: 11/15/19 08:52 Aspirin (Ecotrin Ectab) 81 mg PO QAM [facility] Stop: 11/15/19 08:59 Last Admin: 10/17/19 08:00 Dose: 81 mg Documented by: Atorvastatin Calcium (Lipitor) 40 mg PO HS [facility] Stop: 11/15/19 20:59 Last Admin: 10/16/19 21:14 Dose: 40 mg Documented by: Methylprednisolone 50 mg/ (Syringe) 0.8 mls @ 1.5 mls/min IV Q12 [facility] Stop: 11/15/19 08:59 Last Admin: 10/17/19 08:00 Dose: 1.5 mls/min Documented by: Diltiazem HCl 125 mg/ Dextrose 125 mls @ 5 mls/hr IV .Q24H [facility]; Protocol Stop: 11/16/19 09:29 Insulin Aspart (Novolog Flexpen) 0 units SC ACHS [facility] Stop: 11/15/19 11:29 Last Admin: 10/17/19 08:02 Dose: 3 units Documented by: Ipratropium [place] (Atrovent 0.02% 0.5mg/2.5ml) 0.5 mg INH Q6R [facility] Stop: 11/15/19 12:59 Last Admin: 10/17/19 07:16 Dose: 0.5 mg Documented by: Levalbuterol HCl (Xopenex 1.25mg/0.5ml Neb) 1.25 mg INH Q6R [facility] Stop: 11/15/19 12:59 Last Admin: 10/17/19 07:16 Dose: 1.25 mg Documented by: Losartan Potassium (Cozaar) 50 mg PO [facility] Stop: 11/15/19 08:59 Last Admin: 10/17/19 07:59 Dose: 50 mg Documented by: Metoprolol Tartrate (Lopressor) 25 mg PO BID [facility] Stop: 11/15/19 08:59 Last Admin: 10/17/19 08:36 Dose: 25 mg Documented by: Miscellaneous Medication (Medical Marijuana) 1 dose PO [facility] Stop: 11/15/19 09:14 Last Admin: 10/17/19 08:00 Dose: 1 dose Documented by: Ondansetron HCl (Zofran) 4 mg IV Q6H PRN PRN Reason: Nausea Stop: 11/15/19 08:52 Pantoprazole Sodium (Protonix) 40 mg PO [facility] Stop: 11/15/19 08:59 Last Admin: 10/17/19 08:00 Dose: 40 mg Documented by: Warfarin Sodium (Coumadin) 4 mg PO MoWeFr@1600 [facility] Stop: 11/15/19 15:59 Last Admin: 10/16/19 16:28 Dose: 4 mg Documented by: Warfarin Sodium (Coumadin) 3 mg PO SuTuThSa@1600 [facility] Stop: 11/16/19 15:59 PG Care Time/CCT Total # of Minutes Spent Total Time Spent with Patient: Total time spent is greater than 50% in coordinat ion of care (as documented) at patient's floor/unit and/or counseling patient: Coding Level of Care Code 93802 Subseq Hosp Care Lvl 3 Diagnoses Paroxysmal atrial fibrillation I48.0 Acute on chronic respiratory failure with hypoxia J96.21 Carotid artery stenosis I65.29 CAD in [place] artery I25.10
--- NOTE | 2019-10-17 09:40 | Hospitalist Progress Note ---
Date of Service October 17, 2019 Assessment & Plan (1) Acute on chronic respiratory failure with hypoxia: patient normally on 2.5-3L NC and wears CPAP every night with more dyspnea, more hypoxia and work of breathing for past 48 hours she had some steroids and "antibiotic" at home that made her feel a little better CXR with no obvious infiltrate, some mild pulmonary edema responded to Lasix but no further edema most likely cause of acute decompensation is COPD exacerbation, aflutter RVR causing some diastolic failure still with work of breathing today, not feeling better despite steroids and some diuresis only requiring 4L, want her saturations around 90% (2) COPD exacerbation: no wheezing heard but patient with diminished breath sounds, increased work of breathing follows with Dr. Rodríguez in clinic increase Solu Medrol to 50 q8, add Rocephin and Zithromax since her cough is now productive of green sputum continue Levalbuterol/Ipratropium consult pulmonary since she is not improving (3) Acute heart failure with preserved ejection fraction: echo in August 2019 showed EF of 65%, will not repeat at this time Lasix 40mg IV given at time of admission, responded well with over 1000cc out gave additional dose at 1400 on 10/16 with decent response Cr up to 1.3 today, hold on any further diuresis heart failure was most likely due to atrial flutter with RVR (4) Atrial flutter: in and out of atrial flutter in the ED, has a h/o afib and aflutter, on metoprolol and Coumadin will consult Dr. Morfin who follows her outpatient, has a h/o tachy alicia syndrome periods of RVR, tends to be better controlled when she is resting Metoprolol 25mg BID, added Diltiazem 30mg q8 yesterday evening HR in the 150's this morning, discussed with Dr. Morfin will start Diltiazem drip, watch closely for her to convert because she has a h/o bradycardia he will d/w Dr. Vincent that patient may need pacer (5) Type 2 diabetes mellitus: diabetic diet Novolog monitor for hyperglycemia on the Solu Medrol, no episodes thus fare (6) Hypercholesterolemia: statin therapy (7) CAD in [place] artery: no chest pain, no ischemic changes on the monitor continue aspirin, statin (8) S/P coronary artery stent placement: had [place] in 2014 with one stent placed no current chest pain continue aspirin (9) Obstructive sleep apnea: CPAP at night, she brought in her own machine, may use Admission and Anticipated Discharge Date Admission Date: October 16, 2019 Subjective patient still with dyspnea, she actually says she slept well HR was well controlled over night, now up into the 140's after coughing spell discussed with Dr. Morfin, will start Cardizem drip, will need to watch closely, h/o tachy alicia syndrome her cough is more productive today, no wheezing on exam, just decreased breath sounds updated daughter at the bedside Cr nathan to 1.3, urine is dark, no further Lasix planned K is 4.5, WBC up to 12k she follows with Dr. Rodríguez outpatient, will ask pulmonary to see here since she is not responding to Solu Medrol Review of Systems Review of Systems: All systems reviewed & are unremarkable except as noted in HPI & below Constitutional: + fatigue and + weakness; no fever Respiratory: + cough, + chest congestion, + dyspnea, + dyspnea on exertion and + sputum production; no wheezing Cardiovascular: + palpitations; no chest pain and no edema Gastrointestinal: no abdominal pain, no nausea, no vomiting, no constipation and no diarrhea/loose stools Physical Exam Constitutional: well developed, well nourished, + ill appearing and + obese Eyes: PERRL, conjunctivae normal, anicteric sclerae ENMT: external ear and nose normal, oropharynx normal Neck: trachea midline, no thyromegaly Respiratory: + labored breathing, + cough and + tachypneic Auscultation: + diminished lung sounds; no crackles, no rales, no rhonchi and no wheezes Cardiovascular: Rate/Rhythm: + tachycardic and + irregularly irregular Heart Sounds: normal S1 and normal S2; no murmur Extremities: normal capillary refill; no edema Gastrointestinal (Abdomen): normal bowel sounds, soft, nontender, no hepatosplenomegaly Musculoskeletal: no cyanosis or clubbing, extremities motor strength 5/5 Skin: no rashes, warm and dry Neurologic: patellar DTR's 2+ bilat, sensation intact and PERRL, EOMI, accommodation nl, no face palsy, no dysarthria Psychiatric: A+Ox3, euthymic affect Lymphatic: no cervical or axillary lymphadenopathy Results & Data ([facility]) Vital Signs (Past 12 Hours) Vital Signs Temp Pulse Pulse Resp BP Pulse Ox Pulse Ox 10/17/19 07:38 36.8 C 114 H 16 131/64 96 10/17/19 07:16 113 H 20 94 10/17/19 03:29 36.7 C 116 H 20 120/83 92 10/17/19 00:37 90 18 92 10/17/19 00:16 87 10/16/19 23:45 117 H 10/16/19 23:04 36.5 C 93 H 19 108/71 93 10/16/19 21:53 95 Laboratory Results Laboratory Results - last 24 hr 10/16/19 10/16/19 10/16/19 11:56 16:21 20:33 WBC RBC Hgb Hct MCV MCH MCHC RDW Std Deviation RDW Coeff of Mark Plt Count MPV Sodium Potassium Chloride Carbon Dioxide Anion Gap BUN Creatinine Est Cr Clr Drug Dosing Est GFR ( Amer) Est GFR (Non-Af Amer) BUN/Creatinine Ratio Glucose POC Glucose 165 H 130 H 126 H Calcium 10/17/19 10/17/19 10/17/19 07:16 07:16 07:26 WBC 12.19 H RBC 5.14 Hgb 14.9 Hct 46.1 MCV 89.7 MCH 29.0 MCHC 32.3 RDW Std Deviation 49.6 H RDW Coeff of Mark 15.1 H Plt Count 246 MPV 11.0 H Sodium 139 Potassium 4.5 Chloride 102 Carbon Dioxide 31 Anion Gap 5.0 BUN 39 H D Creatinine 1.31 H D Est Cr Clr Drug Dosing 46.2 Est GFR ( Amer) 46.7 Est GFR (Non-Af Amer) 40.3 BUN/Creatinine Ratio 30.1 H Glucose 134 H POC Glucose 145 H Calcium 10.0 Medications Administered Current Inpatient Medications Acetaminophen (Tylenol) 650 mg PO Q4H PRN PRN Reason: Pain or Fever Stop: 11/15/19 08:52 Aspirin (Ecotrin Ectab) 81 mg PO [facility] Stop: 11/15/19 08:59 Last Admin: 10/17/19 08:00 Dose: 81 mg Documented by: Atorvastatin Calcium (Lipitor) 40 mg PO [facility] Stop: 11/15/19 20:59 Last Admin: 10/16/19 21:14 Dose: 40 mg Documented by: Diltiazem HCl 125 mg/ Dextrose 125 mls @ 5 mls/hr IV .Q24H [facility]; Protocol Stop: 11/16/19 09:29 Last Admin: 10/17/19 09:36 Dose: 5 mg/hr, 5 mls/hr Documented by: Methylprednisolone 50 mg/ (Syringe) 0.8 mls @ 1.5 mls/min IV Q8 [facility] Stop: 11/16/19 13:59 Insulin Aspart (Novolog Flexpen) 0 units SC ACHS [facility] Stop: 11/15/19 11:29 Last Admin: 10/17/19 08:02 Dose: 3 units Documented by: Ipratropium [place] (Atrovent 0.02% 0.5mg/2.5ml) 0.5 mg INH Q6R [facility] Stop: 11/15/19 12:59 Last Admin: 10/17/19 07:16 Dose: 0.5 mg Documented by: Levalbuterol HCl (Xopenex 1.25mg/0.5ml Neb) 1.25 mg INH Q6R [facility] Stop: 11/15/19 12:59 Last Admin: 10/17/19 07:16 Dose: 1.25 mg Documented by: Losartan Potassium (Cozaar) 50 mg PO [facility] Stop: 11/15/19 08:59 Last Admin: 10/17/19 07:59 Dose: 50 mg Documented by: Metoprolol Tartrate (Lopressor) 25 mg PO BID [facility] Stop: 11/15/19 08:59 Last Admin: 10/17/19 08:36 Dose: 25 mg Documented by: Miscellaneous Medication (Medical Marijuana) 1 dose PO [facility] Stop: 11/15/19 09:14 Last Admin: 10/17/19 08:00 Dose: 1 dose Documented by: Ondansetron HCl (Zofran) 4 mg IV Q6H PRN PRN Reason: Nausea Stop: 11/15/19 08:52 Pantoprazole Sodium (Protonix) 40 mg PO [facility] Stop: 11/15/19 08:59 Last Admin: 10/17/19 08:00 Dose: 40 mg Documented by: Warfarin Sodium (Coumadin) 4 mg PO MoWeFr@1600 [facility] Stop: 11/15/19 15:59 Last Admin: 10/16/19 16:28 Dose: 4 mg Documented by: Warfarin Sodium (Coumadin) 3 mg PO Que@1600 [facility] Stop: 11/16/19 15:59 PG Care Time/CCT Total # of Minutes Spent Total Time Spent with Patient: Total time spent is greater than 50% in coordination of care (as documented) at patient's floor/unit and/or counseling patient: Coding Level of Care Code 74254 Subseq Hosp Care Lvl 3 Diagnoses Acute on chronic respiratory failure with hypoxia J96.21 COPD exacerbation J44.1 Acute heart failure with preserved ejection fraction I50.31 Atrial flutter I48.92 Atrial flutter type: unspecified Type 2 diabetes mellitus E11.9 Hypercholesterolemia E78.00 CAD in [place] artery I25.10 S/P coronary artery stent placement Z95.5 Obstructive sleep apnea G47.33 (1) Atrial flutter Atrial flutter type: unspecified Qualified Code(s): I48.92 - Unspecified atrial flutter
[2019-10-17] MEDS ORDERED: cefTRIAXone SODIUM 2,000 MG in DEXTROSE 5% 50 ML IV SCH (10:00)
[2019-10-17] MEDS ORDERED: AZITHROMYCIN 250 MG TAB PO SCH (10:00)
[2019-10-17] MEDS ORDERED: methylPREDNISolone 50 MG in SYRINGE 0 ML IV SCH (14:00)
--- NOTE | 2019-10-17 15:23 | Pulmonary Consultation ---
Date of Consultation October 17, 2019 Assessment & Plan (1) Acute on chronic respiratory failure with hypoxia: Patient presents with acute COPD exacerbation Typically uses supplemental oxygen at 2 L at home at rest and 3 L with exertion Continue to treat COPD exacerbation as below Titrate SaO2 between 88 and 92% We will continue to follow while inpatient and also follow-up as an outpatient in the clinic (2) COPD exacerbation: Discontinue Solumedrol Change steroids to 40 mg PO daily Start LAMA/LABA with Anoro Ellipta i inh daily Start Mucinex 600 mg PO q12h Will need outpatient follow up Maintain SaO2 between 88-92% Recent PFTs 01/25/2019 FVC 61 (70) FEV1 40 (47) FEV1/FVC 65 (66) DLCO unc 48 (3) [place] and COPD overlap syndrome: Patient on chronic CPAP at 8 cm of water Patient may use her own CPAP while in the hospital Most recent CPAP outpatient study shows 9 hours average use per day Continue to encourage use per protocol (4) Atrial flutter: Patient with paroxysmal atrial flutter and on chronic anticoagulation with Coumadin Current INR is 1.9 Continue metoprolol and warfarin per parameters Continue to monitor in telemetry Thank you for including us in the care of this patient. We will continue to follow along with you and also follow patient in the clinic on discharge Atrial flutter type: unspecified Qualified Code(s): I48.92 - Unspecified atrial flutter Supervising Physician Co-Signing Physician Notes Patient seen and examined. Met with patient and daughter at bedside. Discussed with JULIO C galvez. COPD exacerbation complicated by atrial fibrillation with rapid ventricular response. She is not particularly bronchospastic currently not exhibiting significant wheezing. Breath sounds are slightly decreased. For now we will continue with azithromycin decreased down to 250 mg daily. Discontinue Rocephin. Nebulized budesonide, Perforomist. Continue Incruse. Continue CPAP at night. PCO2 elevated at baseline at 31. Check a venous blood gas. The patient may have overlap syndrome. Continue oxygen for now. Needs to lose weight. Pulmonary rehab certainly may be an option We will continue to follow History of Present Illness Attending Physician: Ton Boggs DO History of Present Illness Attending: Dr. Malone Patient follows with Dr. higgins in the clinic and most recently saw him on 2018. Patient states that over the last 2 to 3 days she has had increasing shortness of breath. Last night she had exacerbation and called 911 and was transported to [facility] where she was admitted for COPD exacerbation. Chest x-ray was completed and shows no obvious infiltrate. She received 40 mg of IV furosemide in the ER secondary to some pulmonary edema. She was started on Solu-Medrol. She looked to be worsening so the Solu-Medrol was increased from every 12 hours to every 8 hours. On examination she has no bronchospasm so we will change to prednisone and add Anoro Ellipta. Patient does have a history of CAD with atrial flutter. Most recent echocardiogram was August 2019 with preserved left ventricular ejection fraction of approximately 65%. Patient denies any fever or chills. She has no night sweats. She does have weakness and malaise. Patient does have a smoking history with daily cigarette use most of her adult life. The patient tells me that she quit smoking in July. Review of records and discussion with family members indicates that she continues to smoke 5 to 6 cigarettes/day. The patient has no history of ethanol abuse or chronic use. Aside from shortness of breath and some malaise, patient has no acute complaints. Allergies Allergy/AdvReac Type Severity Reaction Status Date / Time cephalexin AdvReac Mild PT BECOMES Verified 10/16/19 05:33 ANXIOUS lisinopril AdvReac Mild COUGH Verified 10/16/19 05:33 Home Medications Home Medications Medication Instructions Recorded Confirmed Type budesonide-formoterol HFA 160 2 puffs INH BID #6 gm 01/29/19 10/16/19 Rx mcg-4.5 mcg/actuation aerosol inhaler blood sugar diagnostic #100 ea 01/30/19 08/05/19 Rx lancets 30 gauge #100 ea 01/30/19 08/05/19 Rx Spiriva with HandiHaler 1 cap INH QAM 03/15/19 10/16/19 History aspirin 81 mg PO QAM 03/15/19 10/16/19 History cannabidiol 15 mg PO QAM 03/15/19 10/16/19 History coenzyme Q10 [Co Q-10] 100 mg PO QAM 03/15/19 10/16/19 History omega 3-jro-hce-fish oil [Fish Oil] 1 cap PO QAM 03/15/19 10/16/19 History omeprazole 40 mg PO QAM 03/15/19 10/16/19 History CPAP Machine #1 ea 03/30/19 07/17/19 History Oxygen Home #1 ea 03/30/19 07/17/19 History blood sugar diagnostic #10 ea 03/30/19 08/05/19 History lancets 33 gauge #100 ea 03/30/19 06/06/19 History atorvastatin 40 mg tablet 40 mg PO HS #90 tab 04/15/19 10/16/19 Rx losartan 50 mg tablet 50 mg PO QAM #90 tab 04/15/19 10/16/19 Rx warfarin 1 mg tablet 1 mg PO .COMPLEX #360 tab 05/07/19 10/16/19 Rx calcium carbonate 600 mg calcium 600 mg PO DAILY tab 05/24/19 10/16/19 History (1,500 mg) tablet ipratropium 0.5 mg-albuterol 3 mg 3 ml INHALATION QID #360 ml 07/18/19 10/16/19 Rx (2.5 mg base)/3 mL nebulization soln metoprolol tartrate 25 mg tablet 25 mg PO BID #180 tab 07/30/19 10/16/19 Rx albuterol sulfate 90 mcg/actuation 2 puffs INH Q6H PRN #54 gm 08/05/19 10/16/19 Rx aerosol inhaler cholecalciferol (vitamin D3) 1,000 unit PO 5XWK 10/16/19 10/16/19 History [Vitamin D3] zlcomjje-bpv-JE-lycopen-lutein 1 tab PO DAILY 10/16/19 10/16/19 History [Senior Tabs] Patient History Medical History Anxiety CAD in [place] artery (Chronic) Carotid artery stenosis Chronic obstructive pulmonary disease oxygen, nebulizer qid, inhalers COPD, severe (Chronic) Dependence on supplemental oxygen (Chronic) Depression GERD (gastroesophageal reflux disease) History of colon polyps History of colon polyps HTN (hypertension) (Chronic) Hypercholesterolemia (Chronic) Hyperlipidemia Hypertension Irregular heart rate Laryngopharyngeal reflux (Chronic) 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 Morfin History of colonoscopy History of heart artery stent x1 09/2014 History of tooth extraction S/P coronary artery stent placement Status post laser cataract surgery of both eyes had procedure done after cataract removal Status post trigger finger release left hand thumb Family History Grandmother (Maternal) Family history of diabetes mellitus Mother Family hx of colon cancer Other No family history of adverse response to anesthesia Social History Preferred Language: Irish Communication Ability: Effective Hearing Ability: Normal Insurance Coordinator Required: No Beliefs That Will Affect Care: None marital status: / Current Living Situation: Alone current occupational status: retired Feels Safe at Home: Yes Smoking Status: Former smoker Tobacco Type: cigarettes ; Age Started Using Tobacco: 16 ; Cigarettes Per Day: 1 pack a week ; Second Hand Exposure: No ; Hx Alcohol Use: No Hx Substance Use: No Childhood Exposure to Second-Hand Smoke: Yes caffeine: Yes Dental Care, Regularly: No Seatbelt Use: always Sunscreen Use: No Review of Systems Review of Systems: All systems reviewed & are unremarkable except as noted in HPI & below Physical Exam Physical Exam: GENERAL : No acute distress. Appears tired but not particularly ill EYES: No icterus, gaze conjugate NOSE: No evidence of epistaxis MOUTH: No lesions or candidiasis NECK: Supple LUNGS: Breath sounds are decreased globally. No appreciation of any bronchospasm. No appreciation of any rales or rhonchi. HEART: Regular, rate in the high 80s and low 90s at the time of my exam. Telemetry shows normal sinus rhythm ABDOMEN: Soft, NT, ND, BS Present EXTREMITIES: No LE edema, pedal pulses intact NEURO: A&OX3 Results & Data ([facility]) Vital Signs (Past 12 Hours) Vital Signs Temp Pulse Pulse Resp BP Pulse Ox 10/17/19 13:06 70 18 95 10/17/19 13:04 70 18 95 10/17/19 12:19 37.0 C 112 H 18 125/66 97 10/17/19 07:38 36.8 C 114 H 16 131/64 96 10/17/19 07:16 113 H 20 94 10/17/19 03:29 36.7 C 116 H 20 120/83 92 Laboratory Results 10/17/19 07:16 10/17/19 07:16 INR 1.9 (0.9-1.1) H 10/16/19 04:55 Diagnostic Findings XR chest 1V portable 10/16/2019 CLINICAL HISTORY: SOB dyspnea COMPARISON STUDY: 01/23/2018 FINDINGS: Mild stable cardiac megaly. Chronic prominence of the pulmonary vasculature. Diaphragms are smooth. No focal infiltrate. IMPRESSION: Mild chronic pulmonary vascular congestion. No acute process. ACT 112: Negative or not required by law. The above report was generated using voice recognition software. It may contain grammatical, syntax or spelling errors. Electronically signed by: Paulo Castillo M.D. 10/16/2019 6:56 AM PG Care Time/CCT Total # of Minutes Spent Total Time Spent with Patient: Total time spent is greater than 50% in coordination of care (as documented) at patient's floor/unit and/or counseling patient: 40 minutes including discussion with patient and daughter as well as chart review. C[place] [address] Inpt Consult Level 5 Patient Type Established Medical Decision Making Moderate Complexity Diagnoses Acute on chronic respiratory failure with hypoxia J96.21 COPD exacerbation J44.1 [place] and COPD overlap syndrome G47.33; J44.9 Atrial flutter I48.92 Atrial flutter type: unspecified
[2019-10-17] MEDS ORDERED: WARFARIN SOD 3 MG TAB PO SCH (16:00)
[2019-10-17 16:16] LABS: pH VBG 7.39 (7.36-7.41)
--- NOTE | 2019-10-17 18:36 | Electrocardiogram Report ---
Test Reason : Blood Pressure : / mmHG Vent. Rate : 121 BPM Atrial Rate : 053 BPM P-R Int : 000 ms QRS Dur : 072 ms QT Int : 312 ms P-R-T Axes : 000 063 054 degrees QTc Int : 443 ms Atrial fibrillation with rapid ventricular response Abnormal ECG When compared with ECG of 16-OCT-2019 04:22, ST no longer depressed in Inferior leads Confirmed by Mani Morfin ([id number]) on 10/17/2019 6:35:52 PM Referred By: REFERRED SELF Confirmed By:Mani Morfin
[2019-10-17] MEDS: FORMOTEROL 20 MCG/2 ML VIAL NEB SCH (19:37)
[2019-10-17] MEDS: BUDESONIDE 0.5 MG/2 ML VIAL (PULMICORT) NEB SCH (19:37)
[2019-10-17] MEDS: ATORVASTATIN 40 MG TAB PO SCH (20:38)
[2019-10-17] MEDS: guaiFENesin 600 MG TABCR PO SCH (20:38)
--- NOTE | 2019-10-17 22:45 | Electrocardiogram Report ---
Test Reason : Blood Pressure : / mmHG Vent. Rate : 121 BPM Atrial Rate : 000 BPM P-R Int : 000 ms QRS Dur : 074 ms QT Int : 320 ms P-R-T Axes : 000 070 033 degrees QTc Int : 454 ms Atrial fibrillation with rapid ventricular response Nonspecific ST abnormality Abnormal ECG When compared with ECG of 16-OCT-2019 19:34, No significant change Confirmed by Mani Morfin ([id number]) on 10/17/2019 10:45:47 PM Referred By: REFERRED SELF Confirmed By:Mani Morfin
[2019-10-18] MEDS: IPRATROPIUM BROMIDE NEB SOLN 0.02% 2.5 ML VIAL INH SCH ×4 (00:41→19:40)
[2019-10-18] MEDS: LEVALBUTEROL 1.25MG/0.5ML NEB INH SCH ×4 (00:41→19:40)
[2019-10-18] MEDS: dilTIAZem HCL 125 MG in DEXTROSE 5% 100 ML IV SCH (06:55)
[2019-10-18] MEDS: BUDESONIDE 0.5 MG/2 ML VIAL (PULMICORT) NEB SCH ×2 (07:12→19:40)
[2019-10-18] MEDS: FORMOTEROL 20 MCG/2 ML VIAL NEB SCH ×2 (07:12→19:40)
[2019-10-18] MEDS: guaiFENesin 600 MG TABCR PO SCH ×2 (08:02→20:15)
[2019-10-18] MEDS: INSULIN ASPART 100 UNITS/ML 3 ML PEN SC SCH ×4 (08:02→20:30)
[2019-10-18] MEDS: LOSARTAN POTASSIUM 50 MG TAB PO SCH (08:02)
[2019-10-18] MEDS: ASPIRIN 81 MG ECTAB PO SCH (08:02)
[2019-10-18] MEDS: AZITHROMYCIN 250 MG TAB PO SCH (08:03)
[2019-10-18] MEDS: predniSONE 20 MG TAB PO SCH (08:03)
[2019-10-18] MEDS: METOPROLOL TARTRATE 25 MG TAB PO SCH ×2 (08:03→20:15)
[2019-10-18] MEDS: PANTOprazole 40 MG TAB PO SCH (08:03)
[2019-10-18] MEDS: UMECLIDINIUM/VILANTEROL 62.5/25MCG 7 PUFFS/INHALER INH SCH (08:04)
[2019-10-18] MEDS: MEDICAL MARIJUANA PO SCH (08:05)
[2019-10-18 09:03] LABS: Hemoglobin 14.9 g/dL (12.0-16.0); Immature Granulocytes # (auto) 0.03 K/uL (0.00-0.02); Immature Granulocytes % (auto) 0.2 %; Lymphocytes % (auto) 11.3 %; Mean Corpuscular Hemoglobin 29.3 pg (25-34); Mean Corpuscular Hgb Conc 33.1 g/dL (32-36); Mean Corpuscular Volume 88.4 fL (80-100); Monocytes # (auto) 0.83 K/uL (0.11-0.59); Monocytes % (auto) 6.3 %; Neutrophils # (auto) 10.89 K/uL (1.4-6.5); Neutrophils % (auto) 82.2 %; Platelet Count 256 K/uL (130-400); RDW Standard Deviation 48.8 fL (36.4-46.3); Red Blood Count 5.09 M/uL (4.2-5.4); White Blood Count 13.25 K/uL (4.8-10.8)
--- NOTE | 2019-10-18 09:28 | Hospitalist Progress Note ---
Date of Service October 18, 2019 Assessment & Plan (1) Acute on chronic respiratory failure with hypoxia: patient normally on 2.5-3L NC and wears CPAP every night with more dyspnea, more hypoxia and work of breathing for past 48 hours she had some steroids and "antibiotic" at home that made her feel a little better CXR with no obvious infiltrate, some mild pulmonary edema at time of admission, since resolved responded to Lasix but no further edema most likely cause of acute decompensation is COPD exacerbation, aflutter RVR causing some diastolic failure breathing more comfortably today, appreciate pulmonary recommendations (2) COPD exacerbation: no wheezing heard but patient with diminished breath sounds, increased work of breathing follows with Dr. Rodríguez in clinic continue Prednisone 40mg daily, Zithromax 250mg daily Budesonide neb BID Formoterol BID Umeclidinium/Vilanterol inh daily continue Levalbuterol/Ipratropium appreciate pulmonary recommendations COPD follow up clinic referral made (3) Acute heart failure with preserved ejection fraction: echo in August 2019 showed EF of 65%, will not repeat at this time Lasix 40mg IV given at time of admission, responded well with over 1000cc out gave additional dose at 1400 on 10/16 with decent response heart failure was most likely due to atrial flutter with RVR no further Lasix as lungs are clear and heart rate is better controlled (4) Atrial flutter: in and out of atrial flutter in the ED, has a h/o afib and aflutter, on metoprolol and Coumadin will consult Dr. Morfin who follows her outpatient, has a h/o tachy alicia syndrome periods of RVR, tends to be better controlled when she is resting Metoprolol 25mg BID Diltiazem drip today and yesterday, rates better controlled will start oral Diltiazem 30mg BID, stop drip but RN can use if needed Dr. Vincent will follow over the weekend (5) Type 2 diabetes mellitus: diabetic diet Novolog monitor for [facility] the [facility], no episodes thus fare (6) Hypercholesterolemia: statin therapy (7) CAD in [place] artery: no chest pain, no ischemic changes on the monitor continue aspirin, statin (8) S/P coronary artery stent placement: had RI in 2013 with one stent placed no current chest pain continue aspirin (9) Obstructive sleep apnea: CPAP at night, she brought in her own machine, may use Admission and Anticipated Discharge Date Admission Date: October 16, 2019 Anticipated date of discharge: 10/21/19 Subjective patient rested comfortably over night with CPAP while sleeping her HR was in the 60's now that she is awake, HR up above 100, still on Diltiazem drip this morning eating much better, overall she feels better discussed with Dr. Morfin, he was thinking she may convert to NSR and go bradycardic but that has not happened he will focus on rate control with Cardizem, will start 30mg TID this evening Dr. Vincent will be here over the weekend labs reviewed, WBC is 13k, Cr is 1.1, electrolytes stable updated patient's daughter at the bedside Review of Systems Review of Systems: All systems reviewed & are unremarkable except as noted in HPI & below Constitutional: + fatigue and + weakness; no fever, no chills and no sweats Respiratory: + cough, + dyspnea and + dyspnea on exertion; no wheezing Cardiovascular: no chest pain and no edema Gastrointestinal: no abdominal pain, no nausea, no vomiting, no constipation and no diarrhea/loose stools Physical Exam Constitutional: well developed, well nourished, + ill appearing and + obese Eyes: PERRL, conjunctivae normal, anicteric sclerae ENMT: external ear and nose normal, oropharynx normal Neck: trachea midline, no thyromegaly Respiratory: + labored breathing and + cough Auscultation: + diminished lung sounds; no crackles, no rales, no rhonchi and no wheezes Cardiovascular: Rate/Rhythm: + tachycardic and + irregularly irregular Heart Sounds: normal S1 and normal S2; no murmur Extremities: normal capillary refill; no edema Gastrointestinal (Abdomen): normal bowel sounds, soft, nontender, no hepatosplenomegaly Musculoskeletal: no cyanosis or clubbing, extremities motor strength 5/5 Skin: no rashes, warm and dry Neurologic: patellar DTR's 2+ bilat, sensation intact and PERRL, EOMI, accommodation nl, no face palsy, no dysarthria Psychiatric: A+Ox3, euthymic affect Lymphatic: no cervical or axillary lymphadenopathy Results & Data ([facility]) Vital Signs (Past 12 Hours) Vital Signs Temp Pulse Pulse Resp BP Pulse Ox 10/18/19 07:42 36.5 C 61 22 115/75 96 10/18/19 07:13 98 H 21 91 10/18/19 04:17 36.6 C 92 H 24 92/58 L 90 10/18/19 00:43 85 18 95 10/18/19 00:00 36.6 C 76 20 136/58 L 97 Laboratory Results Laboratory Results - last 24 hr 10/17/19 10/17/19 10/17/19 16:04 16:18 20:21 WBC RBC Hgb Hct MCV MCH MCHC RDW Std Deviation RDW Coeff of Mark Plt Count MPV Immature Gran % (Auto) Neut % (Auto) Lymph % (Auto) [facility] % (Auto) Eos % (Auto) Baso % (Auto) Immature Gran # (Auto) Neut # (Auto) Lymph # (Auto) [facility] # (Auto) Eos # (Auto) Baso # (Auto) VBG pH 7.39 VBG pCO2 44 VBG pO2 56 VBG HCO3 26 VBG O2 Saturation 88.0 VBG Base Excess 1.0 Barometric Pressure 741.1 Sodium Potassium Chloride Carbon Dioxide Anion Gap BUN Creatinine Est Cr Clr Drug Dosing Est GFR ( Amer) Est GFR (Non-Af Amer) BUN/Creatinine Ratio Glucose POC Glucose 201 H 151 H Calcium 10/18/19 10/18/19 10/18/19 07:30 08:42 08:42 WBC 13.25 H RBC 5.09 Hgb 14.9 Hct 45.0 MCV 88.4 MCH 29.3 MCHC 33.1 RDW Std Deviation 48.8 H RDW Coeff of Mark 15.0 H Plt Count 256 MPV 11.0 H Immature Gran % (Auto) 0.2 Neut % (Auto) 82.2 Lymph % (Auto) 11.3 [facility] % (Auto) 6.3 Eos % (Auto) 0.0 Baso % (Auto) 0.0 Immature Gran # (Auto) 0.03 H Neut # (Auto) 10.89 H Lymph # (Auto) 1.50 [facility] # (Auto) 0.83 H Eos # (Auto) 0.00 Baso # (Auto) 0.00 VBG pH VBG pCO2 VBG pO2 VBG HCO3 VBG O2 Saturation VBG Base Excess Barometric Pressure Sodium 139 Potassium 3.9 Chloride 104 Carbon Dioxide 29 Anion Gap 6.0 BUN 36 H Creatinine 1.11 Est Cr Clr Drug Dosing 54.9 Est GFR ( Amer) 57.1 Est GFR (Non-Af Amer) 49.2 BUN/Creatinine Ratio 32.3 H Glucose 191 H POC Glucose 123 H Calcium 9.3 10/18/19 11:19 WBC RBC Hgb Hct MCV MCH MCHC RDW Std Deviation RDW Coeff of Mark Plt Count MPV Immature Gran % (Auto) Neut % (Auto) Lymph % (Auto) [facility] % (Auto) Eos % (Auto) Baso % (Auto) Immature Gran # (Auto) Neut # (Auto) Lymph # (Auto) [facility] # (Auto) Eos # (Auto) Baso # (Auto) VBG pH VBG pCO2 VBG pO2 VBG HCO3 VBG O2 Saturation VBG Base Excess Barometric Pressure Sodium Potassium Chloride Carbon Dioxide Anion Gap BUN Creatinine Est Cr Clr Drug Dosing Est GFR ( Amer) Est GFR (Non-Af Amer) BUN/Creatinine Ratio Glucose POC Glucose 94 Calcium Medications Administered Current Inpatient Medications Acetaminophen (Tylenol) 650 mg PO Q4H PRN PRN Reason: Pain or Fever Stop: 11/15/19 08:52 Aspirin (Ecotrin Ectab) [facility] Stop: 11/15/19 08:59 Last Admin: 10/18/19 08:02 Dose: 81 mg Documented by: Atorvastatin Calcium (Lipitor) 40 mg PO [facility] Stop: 11/15/19 20:59 Last Admin: 10/17/19 20:38 Dose: 40 mg Documented by: Azithromycin (Zithromax) 250 mg PO QAM [facility]; Protocol Stop: 10/25/19 08:59 Last Admin: 10/18/19 08:03 Dose: 250 mg Documented by: Budesonide (Pulmicort Respules) 0.5 mg NEB BIDR [facility] Stop: 11/16/19 18:59 Last Admin: 10/18/19 07:12 Dose: 0.5 mg Documented by: Diltiazem HCl (Cardizem) 30 mg PO Q6H [facility] Stop: 11/17/19 15:14 Formoterol Fumarate (Perforomist) 20 mcg NEB BIDR [facility] Stop: 11/16/19 18:59 Last Admin: 10/18/19 07:12 Dose: 20 mcg Documented by: Guaifenesin (Mucinex) 600 mg PO Q12 [facility] Stop: 11/16/19 20:59 Last Admin: 10/18/19 08:02 Dose: 600 mg Documented by: Diltiazem HCl 125 mg/ Dextrose 125 mls @ 5 mls/hr IV .Q24H [facility]; Protocol Stop: 11/16/19 09:29 Last Titration: 10/18/19 07:43 Dose: 5 mg/hr, 5 mls/hr Documented by: Insulin Aspart (Novolog Flexpen) 0 units SC ACHS [facility] Stop: 11/15/19 11:29 Last Admin: 10/18/19 12:06 Dose: 4 units Documented by: Ipratropium [place] (Atrovent 0.02% 0.5mg/2.5ml) 0.5 mg INH Q6R [facility] Stop: 11/15/19 12:59 Last Admin: 10/18/19 13:19 Dose: 0.5 mg Documented by: Levalbuterol HCl (Xopenex 1.25mg/0.5ml Neb) 1.25 mg INH Q6R [facility] Stop: 11/15/19 12:59 Last Admin: 10/18/19 13:19 Dose: 1.25 mg Documented by: Losartan Potassium (Cozaar) 50 mg PO QAM [facility] Stop: 11/15/19 08:59 Last Admin: 10/18/19 08:02 Dose: 50 mg Documented by: Metoprolol Tartrate (Lopressor) 25 mg PO BID [facility] Stop: 11/15/19 08:59 Last Admin: 10/18/19 08:03 Dose: 25 mg Documented by: Cbd Soft-Gel: Non- Formulary Patient's Own Med 1 ea [facility] [place] Stop: 11/18/19 08:59 Ondansetron HCl (Zofran) 4 mg IV Q6H PRN PRN Reason: Nausea Stop: 11/15/19 08:52 Pantoprazole Sodium (Protonix) 40 [facility] [place] Stop: 11/15/19 08:59 Last Admin: 10/18/19 08:03 Dose: 40 mg Documented by: Prednisone (Prednisone) 40 mg PO QAM [facility] Stop: 11/17/19 08:59 Last Admin: 10/18/19 08:03 Dose: 40 mg Documented by: Umeclidinium/Vilanterol (Anoro Ellipta 62.5/25 Mcg Inh) 1 puffs INH DAILY [facility] Stop: 11/17/19 08:59 Last Admin: 10/18/19 08:04 Dose: 1 puffs Documented by: Warfarin Sodium (Coumadin) 4 mg PO [id number] [facility] Stop: 11/15/19 15:59 Last Admin: 10/16/19 16:28 Dose: 4 mg Documented by: Warfarin Sodium (Coumadin) 3 mg PO [id number] [facility] Stop: 11/16/19 15:59 Last Admin: 10/17/19 17:19 Dose: 3 mg Documented by: PG Care Time/CCT Total # of Minutes Spent Total Time Spent with Patient: Total time spent is greater than 50% in coordination of care (as documented) at patient's floor/unit and/or counseling patient: Coding Level of Care Code 83747 Subseq Hosp Care Lvl 3 Diagnoses Acute on chronic respiratory failure with hypoxia J96.21 COPD exacerbation J44.1 Acute heart failure with preserved ejection fraction I50.31 Atrial flutter I48.92 Atrial flutter type: unspecified Type 2 diabetes mellitus E11.9 Hypercholesterolemia E78.00 CAD in [place] artery I25.10 S/P coronary artery stent placement Z95.5 Obstructive sleep apnea G47.33 (1) Atrial flutter Atrial flutter type: unspecified Qualified Code(s): I48.92 - Unspecified atrial flutter
[2019-10-18 09:41] LABS: BUN Creatinine Ratio 32.3 (10-20); Calcium 9.3 mg/dl (8.5-10.1); Creatinine Clr Calc Pharmacy 54.9 ml/min; Est GFR (African American) 57.1; Est GFR (Non-African American) 49.2; Potassium 3.9 mmol/L (3.5-5.1)
--- NOTE | 2019-10-18 11:59 | Pulmonology Progress Note ---
Date of Service October 18, 2019 Assessment & Plan (1) ORVILLE and COPD overlap syndrome: Impression: 74 y/o F with morbid obesity and overlap syndrome admitted with exacerbation of COPD as well as atrial fibrillation with rapid ventricular response. Her last PFTs performed in December 2018 showed an FEV1 of 0.8 L or 40% predicted Recommendations: 1. COPD exacerbation: Continue azithromycin Pulmicort and Perforomist and Incruse. Continue prednisone for now. She does not appear overtly bron chospastic. Given the frequency of his exacerbations, consideration for 3 times a week azithromycin may be beneficial. Could also consider Daliresp or potential theophylline in the outpatient setting although would not favor theophylline given her recurrent atrial arrhythmias and potential risk for worsening. 2. ORV[place]LE/overlap syndrome: The patient's blood gas did show mildly elevated CO2. There is likely a component of obesity hypoventilation superimposed on this. Her home CPAP setting is 9 cmH2O with a resultant AHI of 1.8. Unclear if she would benefit from bilevel to assist her elevated CO2 or potential transition to trilogy. Will defer to Dr. higgins in the outpatient setting. Continue CPAP nightly and when sleeping in the hospital. 3. Dyspnea on exertion: I suspect this is multifactorial due to combinations of obstructive lung disease, diastolic dysfunction, atrial fibrillation, deconditioning, and obesity. The patient was advised that she needs to become more active. Questioning the patient reveals that she only walks for about 10 feet at a time at home. This is undoubtedly contributing to her symptoms. PT OT and formal weight loss program may be beneficial. Anticipate she may have a prolonged and protracted course. (2) COPD exacerbation: (3) Hypoxia: Review of Systems Review of Systems: Unchanged from prior Physical Exam Constitutional: well developed, well nourished, + ill appearing and + obese Eyes: PERRL, conjunctivae normal, anicteric sclerae ENMT: external ear and nose normal, oropharynx normal Neck: trachea midline, no thyromegaly Respiratory: + labored breathing, + cough and + tachypneic Auscultation: + diminished lung sounds; no crackles, no rales, no rhonchi and no wheezes Cardiovascular: Rate/Rhythm: + tachycardic and + irregularly irregular Heart Sounds: normal S1 and normal S2; no murmur Extremities: normal ca pillary refill; no edema Gastrointestinal (Abdomen): normal bowel sounds, soft, nontender, no hepatosplenomegaly Musculoskeletal: no cyanosis or clubbing, extremities motor strength 5/5 Skin: no rashes, warm and dry Neurologic: patellar DTR's 2+ bilat, sensation intact and PERRL, EOMI, accommodation nl, no face palsy, no dysarthria Psychiatric: A+Ox3, euthymic affect Lymphatic: no cervical or axillary lymphadenopathy Results & Data ([facility]) Vital Signs (Past 12 Hours) Vital Signs Temp Pulse Pulse Pulse Resp BP Pulse Ox 10/18/19 11:36 36.4 C L 93 H 22 108/69 92 10/18/19 08:00 86 10/18/19 07:42 36.5 C 61 22 115/75 96 10/18/19 07:13 98 H 21 91 10/18/19 04:17 36.6 C 92 H 24 92/58 L 90 10/18/19 00:43 85 18 95 10/18/19 00:00 36.6 C 76 20 136/58 L 97 Laboratory Results 10/18/19 08:42 10/18/19 08:42 10/17/19 16:04 VBG pH 7.39 VBG pCO2 44 VBG pO2 56 VBG HCO3 26 VBG O2 Saturation 88.0 VBG Base Excess 1.0 Diagnostic Findings No new imaging PG Care Time/CCT Total # of Minutes Spent Total Time Spent with Patient: Total time spent is greater than 50% in coordination of care (as documented) at patient's floor/unit and/or counseling patient: Coding Level of Care Code 12966 Subseq Hosp Care Lvl 3 Diagnoses [place] and COPD overlap syndrome G47.33; J44.9 COPD exacerbation J44.1 Hypoxia R09.02
[2019-10-18] MEDS: WARFARIN SOD 4 MG TAB PO SCH (16:31)
[2019-10-18] MEDS: dilTIAZem HCL 30 MG TAB PO SCH ×2 (16:31→20:15)
[2019-10-18] MEDS: ATORVASTATIN 40 MG TAB PO SCH (20:15)
--- NOTE | 2019-10-18 21:27 | Electrocardiogram Report ---
Test Reason : Blood Pressure : / mmHG Vent. Rate : 118 BPM Atrial Rate : 000 BPM P-R Int : 000 ms QRS Dur : 086 ms QT Int : 320 ms P-R-T Axes : 000 074 047 degrees QTc Int : 448 ms Atrial fibrillation with rapid ventricular response Abnormal ECG When compared with ECG of 17-OCT-2019 07:08, No significant change Confirmed by Mani Morfin ([id number]) on 10/18/2019 9:27:34 PM Referred By: REFERRED SELF Confirmed By:Mani Morfin
--- NOTE | 2019-10-18 21:37 | Cardiology Progress Note ---
Date of Service October 18, 2019 Assessment & Plan (1) Paroxysmal atrial fibrillation: (2) Acute on chronic respiratory failure with hypoxia: (3) Carotid artery stenosis: (4) CAD in [place] artery: ASSESSMENT/PLAN: 1. Paroxysmal atrial fibrillation: Remains in atrial fibrillation and rates have been elevated at times, especially while awake. Rates appear to be improved while on CPAP. She was encouraged to use CPAP as she continues to feel short of breath. She has not tolerated BiPAP. She typically had converted in the past rather quickly but remains in atrial fibrillation for the past few days. Start oral diltiazem 30 mg q.6 hours and can titrate as necessary. In the past, while in sinus rhythm, she has had issues with bradycardia. We discussed this and discussed the potential for pacemaker for tachy-alicia syndrome. She has been seen by Dr. Vincent of electrophysiology in the office a few months ago who recommended rate-controlling strategy rather than anti rhythmic therapy or ablation. Potential pacemaker placement has also been discussed. continue beta-supa. Her rate will hopefully improve with improved respiratory status. She is typically asymptomatic with elevated heart rates during atrial fibrillation. Continue anticoagulation for stroke risk r eduction. She has declined NOAC agents. 2. Acute on chronic respiratory failure with hypoxia: She does not appear hypervolemic on exam. Her breathing did not improve significantly with diuresis and presentation is most consistent with COPD exacerbation. She became azotemic with diuresis on presentation. Chest x-ray findings are chronic and stable. Her weight has been down at home. She does not have a history of CHF . Atrial fibrillation may also be contributing to her symptoms of dyspnea. COPD treatment as per primary hospitalist And pulmonology. 3. CAD with NSTEMI (10/20/14) and PCI: She denies angina. Continue aspirin 81 mg daily indefinitely. Continue beta supa and high intensity statin therapy. 4. Hypertension: Blood pressure has been normotensive or mildly hypotensive. Continue current regimen. 5. Carotid artery stenosis: There has been progression noted ICA stenosis. Recommend vascular follow-up as an outpatient. 6. Disposition: I will be away from the hospital for the next [address] Vincent was updated on her plan of care. He will help assist in her care in my absence. Plan of care/recommendations discussed with Dr. Boggs of the primary hospital service. Admission and Anticipated Discharge Date Admission Date: October 16, 2019 Subjective She was seen earlier this morning, with her daughter at the bedside. She acknowledges that her breathing has improved but she is still significantly short of breath. She denies chest pain, syncope, near-syncope, edema. She did have some hematuria but she believes it was due to the position that she was sitting in with Hargrove catheter in place. Hematuria has since improved. Her heart rate was better controlled overnight while using CPAP but even while laying in bed off of CPAP, her heart rate was more elevated. She was on intravenous diltiazem 5 milligrams/hour during our visit Review of systems: As above. Physical Exam Physical Exam: Gen.: No acute distress. Alert and oriented. HEENT: Anicteric sclera. Neck: No JVD or hepatic jugular reflux. Thick neck. Cardiac: PMI was nonpalpable. No ventricular heave. Irregularly irregular and tachycardic. Normal S1-S2. No audible murmur. No rubs or gallops. Pulmonary: Decreased breath sounds throughout, but otherwise clear to auscultation bilaterally without wheezes, rales, or rhonchi. Abdomen: Soft, nontender, nondistended, with normoactive bowel sounds. No bruits noted. Extremities: No edema. No cyanosis. Psychiatric: Affect appears appropriate. Results & Data ([facility]) Vital Signs (Past 12 Hours) Vital Signs Temp Pulse Pulse Resp BP Pulse Ox 10/18/19 19:40 86 16 93 10/18/19 19:38 36.6 C 108 H 18 110/75 91 10/18/19 15:23 100 H 10/18/19 15:16 36.7 C 112 H 18 103/60 90 10/18/19 13:21 103 H 26 H 89 L 10/18/19 11:36 36.4 C L 93 H 22 108/69 92 Intake & Output 10/16/19 10/17/19 10/18/19 10/19/19 06:59 06:59 06:59 06:59 Intake Total 400 / 400 575 / 575 991.583 / 991.583 807.917 / 807.917 Output Total 2225 / 2225 1350 / 1350 300 / 300 Balance 400 / 400 -1650 / -1650 -358.417 / -358.417 507.917 / 507.917 Weight 113.5 kg 112.6 kg 113.9 kg Laboratory Results Laboratory Results - last 24 hr 10/18/19 10/18/19 10/18/19 07:30 08:42 08:42 WBC 13.25 H RBC 5.09 Hgb 14.9 Hct 45.0 MCV 88.4 MCH 29.3 MCHC 33.1 RDW Std Deviation 48.8 H RDW Coeff of Mark 15.0 H Plt Count 256 MPV 11.0 H Immature Gran % (Auto) 0.2 Neut % (Auto) 82.2 Lymph % (Auto) 11.3 [place] % (Auto) 6.3 Eos % (Auto) 0.0 Baso % (Auto) 0.0 Immature Gran # (Auto) 0.03 H Neut # (Auto) 10.89 H Lymph # (Auto) 1.50 [place] # (Auto) 0.83 H Eos # (Auto) 0.00 Baso # (Auto) 0.00 Sodium 139 Potassium 3.9 Chloride 104 Carbon Dioxide 29 Anion Gap 6.0 BUN 36 H Creatinine 1.11 Est Cr Clr Drug Dosing 54.9 Est GFR ( Amer) 57.1 Est GFR (Non-Af Amer) 49.2 BUN/Creatinine Ratio 32.3 H Glucose 191 H POC Glucose 123 H Calcium 9.3 10/18/19 10/18/19 10/18/19 11:19 16:20 20:23 WBC RBC Hgb Hct MCV MCH MCHC RDW Std Deviation RDW Coeff of Mark Plt Count MPV Immature Gran % (Auto) Neut % (Auto) Lymph % (Auto) [place] % (Auto) Eos % (Auto) Baso % (Auto) Immature Gran # (Auto) Neut # (Auto) Lymph # (Auto) [place] # (Auto) Eos # (Auto) Baso # (Auto) Sodium Potassium Chloride Carbon Dioxide Anion Gap BUN Creatinine Est Cr Clr Drug Dosing Est GFR ( Amer) Est GFR (Non-Af Amer) BUN/Creatinine Ratio Glucose POC Glucose 94 140 H 125 H Calcium Diagnostic Findings Telemetry personally reviewed: Atrial fibrillation with improved And acceptable heart rates overnight but otherwise rapid ventricular response after waking up this morning. Telemetry was then checked later in the day and her heart rate was improved and acceptable. Medications Administered Current Inpatient Medications Acetaminophen (Tylenol) 650 mg PO Q4H PRN PRN Reason: Pain or Fever Stop: 11/15/19 08:52 Aspirin (Ecotrin Ectab) 81 mg PO QAM [facility] Stop: 11/15/19 08:59 Last Admin: 10/18/19 08:02 Dose: 81 mg Documented by: Atorvastatin Calcium (Lipitor) 40 mg PO HS [facility] Stop: 11/15/19 20:59 Last Admin: 10/18/19 20:15 Dose: 40 mg Documented by: Azithromycin (Zithromax) 250 mg PO QAM [facility]; Protocol Stop: 10/25/19 08:59 Last Admin: 10/18/19 08:03 Dose: 250 mg Documented by: Budesonide (Pulmicort Respules) 0.5 mg NEB BIDR [facility] Stop: 11/16/19 18:59 Last Admin: 10/18/19 19:40 Dose: 0.5 mg Documented by: Diltiazem HCl (Cardizem) 30 mg PO Q6H [facility] Stop: 11/17/19 15:14 Last Admin: 10/18/19 20:15 Dose: 30 mg Documented by: Formoterol Fumarate (Perforomist) 20 mcg NEB BIDR [facility] Stop: 11/16/19 18:59 Last Admin: 10/18/19 19:40 Dose: 20 mcg Documented by: Guaifenesin (Mucinex) 600 mg PO Q12 [facility] Stop: 11/16/19 20:59 Last Admin: 10/18/19 20:15 Dose: 600 mg Documented by: Diltiazem HCl 125 mg/ Dextrose 125 mls @ 0 mls/hr IV .Q0M [facility]; Protocol Stop: 11/16/19 09:29 Last Titration: 10/18/19 19:04 Dose: 0 mg/hr, 0 mls/hr Documented by: Insulin Aspart (Novolog Flexpen) 0 units SC ACHS [facility] Stop: 11/15/19 11:29 Last Admin: 10/18/19 20:30 Dose: Not Given Documented by: Ipratropium Hawkins (Atrovent 0.02% 0.5mg/2.5ml) 0.5 mg INH Q6R [facility] Stop: 11/15/19 12:59 Last Admin: 10/18/19 19:40 Dose: 0.5 mg Documented by: Levalbuterol HCl (Xopenex 1.25mg/0.5ml Neb) 1.25 mg INH Q6R [facility] Stop: 11/15/19 12:59 Last Admin: 10/18/19 19:40 Dose: 1.25 mg Documented by: Losartan Potassium (Cozaar) 50 mg PO QAM [facility] Stop: 11/15/19 08:59 Last Admin: 10/18/19 08:02 Dose: 50 mg Documented by: Metoprolol Tartrate (Lopressor) 25 mg PO BID [facility] Stop: 11/15/19 08:59 Last Admin: 10/18/19 20:15 Dose: 25 mg Documented by: Cbd Soft-Gel: Non- Formulary Patient's Own Med 1 ea PO [facility] Stop: 11/18/19 08:59 Ondansetron HCl (Zofran) 4 mg IV Q6H PRN PRN Reason: Nausea Stop: 11/15/19 08:52 Pantoprazole Sodium (Protonix) 40 mg PO [facility] Stop: 11/15/19 08:59 Last Admin: 10/18/19 08:03 Dose: 40 mg Documented by: Prednisone (Prednisone) 40 mg PO [facility] Stop: 11/17/19 08:59 Last Admin: 10/18/19 08:03 Dose: 40 mg Documented by: Umeclidinium/Vilanterol (Anoro Ellipta 62.5/25 Mcg Inh) 1 puffs INH DAILY [facility] Stop: 11/17/19 08:59 Last Admin: 10/18/19 08:04 Dose: 1 puffs Documented by: Warfarin Sodium (Coumadin) 4 mg PO MoWeFr@1600 [facility] Stop: 11/15/19 15:59 Last Admin: 10/18/19 16:31 Dose: 4 mg Documented by: Warfarin Sodium (Coumadin) 3 mg PO [id number]@1600 [facility] Stop: 11/16/19 15:59 Last Admin: 10/17/19 17:19 Dose: 3 mg Documented by: PG Care Time/CCT Total # of Minutes Spent Total Time Spent with Patient: Total time spent is greater than 50% in coordination of care (as documented) at patient's floor/unit and/or counseling patient: Coding Level of Care Code 07102 Subseq Hosp Care Lvl 3 Diagnoses Paroxysmal atrial fibrillation I48.0 Acute on chronic respiratory failure with hypoxia J96.21 Carotid artery stenosis I65.29 CAD in [place] artery I25.10
[2019-10-18] MEDS ORDERED: dilTIAZem HCl 5 MG/ML 5 ML VIAL IV ONE ×2 (22:28→22:30)
[2019-10-18] MEDS ORDERED: DIGOXIN 250 MCG in SYRINGE 9 ML IV STA (22:38)
[2019-10-19] MEDS: LEVALBUTEROL 1.25MG/0.5ML NEB INH SCH ×4 (00:55→19:03)
[2019-10-19] MEDS: IPRATROPIUM BROMIDE NEB SOLN 0.02% 2.5 ML VIAL INH SCH ×4 (00:55→19:03)
[2019-10-19] MEDS: dilTIAZem HCL 30 MG TAB PO SCH ×4 (02:29→20:32)
[2019-10-19] MEDS: BUDESONIDE 0.5 MG/2 ML VIAL (PULMICORT) NEB SCH ×2 (06:52→19:06)
[2019-10-19] MEDS: FORMOTEROL 20 MCG/2 ML VIAL NEB SCH ×2 (06:52→19:06)
[2019-10-19 08:20] LABS: BUN Creatinine Ratio 29.5 (10-20); Creatinine Clr Calc Pharmacy 55.1 ml/min; Est GFR (African American) 57.7; Est GFR (Non-African American) 49.8; Potassium 3.9 mmol/L (3.5-5.1)
[2019-10-19] MEDS: INSULIN ASPART 100 UNITS/ML 3 ML PEN SC SCH ×4 (08:28→22:03)
[2019-10-19] MEDS: ASPIRIN 81 MG ECTAB PO SCH (08:29)
[2019-10-19] MEDS: LOSARTAN POTASSIUM 50 MG TAB PO SCH (08:29)
[2019-10-19] MEDS: predniSONE 20 MG TAB PO SCH (08:29)
[2019-10-19] MEDS: guaiFENesin 600 MG TABCR PO SCH ×2 (08:29→20:32)
[2019-10-19] MEDS: PANTOprazole 40 MG TAB PO SCH (08:29)
[2019-10-19] MEDS: METOPROLOL TARTRATE 25 MG TAB PO SCH ×2 (08:30→20:32)
[2019-10-19] MEDS: AZITHROMYCIN 250 MG TAB PO SCH (08:30)
[2019-10-19] MEDS: UMECLIDINIUM/VILANTEROL 62.5/25MCG 7 PUFFS/INHALER INH SCH (08:30)
[2019-10-19] MEDS: CANNABIDIOL PO SCH (08:31)
[2019-10-19] MEDS ORDERED: CBD OIL PO SCH (09:00)
[2019-10-19 09:13] LABS: INR 4.5 (0.9-1.1)
--- NOTE | 2019-10-19 09:57 | Pulmonology Progress Note ---
Date of Service October 19, 2019 Assessment & Plan (1) [place] and COPD overlap syndrome: Impression: 74 y/o F with morbid obesity and overlap syndrome admitted with exacerbation of COPD as well as atrial fibrillation with rapid ventricular response. Her last PFTs performed in December 2018 showed an FEV1 of 0.8 L or 40% predicted Recommendations: 1. COPD exacerbation: Continue azithromycin Pulmicort and Perforomist and Incruse. Continue prednisone for now. She does not appear overtly bron chospastic. Given the frequency of his exacerbations, consideration for 3 times a week azithromycin as an outpatient may be beneficial. Could also consider Daliresp or potential theophylline in the outpatient setting although would not favor theophylline given her recurrent atrial arrhythmias and potential risk for worsening of her arrhythmia. 2. [place]/overlap syndrome: The patient's blood gas did show mildly elevated CO2. There is likely a component of obesity hypoventilation superimposed on this. Her home CPAP setting is 9 cmH2O with a resultant AHI of 1.8. Unclear if she would benefit from bilevel to assist her elevated CO2 or potential transition to trilogy. Will defer to Dr. higgins in the outpatient setting. Continue CPAP nightly and when sleeping in the hospital. 3. Dyspnea on exertion: I suspect this is multifactorial due to combinations of obstructive lung disease, diastolic dysfunction, atrial fibrillation, deconditioning, and obesity. The patient was advised that she needs to become more active. Questioning the patient reveals that she only walks for about 10 feet at a time at home. This is undoubtedly contributing to her symptoms. PT OT and formal weight loss program may be beneficial. Some improvement today. Continue current course. Patient was encouraged to remain out of bed and ambulate as much as possible. (2) COPD exacerbation: Recent PFTs 01/25/2019 FVC 61 (70) FEV1 40 (47) FEV1/FVC 65 (66) DLCO unc 48 (3) Hypoxia: Physical Exam Constitutional: well developed, well nourished and + obese Eyes: PERRL, conjunctivae normal, anicteric sclerae ENMT: external ear and nose normal, oropharynx normal Neck: trachea midline, no thyromegaly Respiratory: Auscultation: + diminished lung sounds; no crackles, no rales, no rhonchi and no wheezes Cardiovascular: Rate/Rhythm: + irregularly irregular Heart Sounds: normal S1 and normal S2; no murmur Extremities: normal capillary refill; no edema Gastrointestinal (Abdomen): normal bowel sounds, soft, nontender, no hepatosplenomegaly Musculoskeletal: no cyanosis or clubbing, extremities motor strength 5/5 Skin: no rashes, warm and dry Neurologic: patellar DTR's 2+ bilat, sensation intact and PERRL, EOMI, accommodation nl, no face palsy, no dysarthria Psychiatric: A+Ox3, euthymic affect Lymphatic: no cervical or axillary lymphadenopathy Results & Data ([facility]) Vital Signs (Past 12 Hours) Vital Signs Temp Pulse Pulse Pulse Resp BP Pulse Ox 10/19/19 07:58 36.6 C 117 H 22 111/71 92 10/19/19 06:54 94 H 22 92 10/19/19 02:28 36.7 C 100 H 20 122/90 94 10/19/19 00:56 91 H 18 94 10/18/19 23:50 36.7 C 110 H 19 103/62 91 10/18/19 22:51 155 H 10/18/19 22:37 127 H 92/50 L 10/18/19 22:28 135 H 97/62 L PG Care Time/CCT Total # of Minutes Spent Total Time Spent with Patient: Total time spent is greater than 50% in coordination of care (as documented) at patient's floor/unit and/or counseling patient: Coding Level of Care Code 78640 Subseq Hosp Care Lvl 2 Diagnoses [place] and COPD overlap syndrome G47.33; J44.9 COPD exacerbation J44.1 Hypoxia R09.02
--- NOTE | 2019-10-19 12:36 | Cardiology Progress Note ---
Date of Service October 19, 2019 Assessment & Plan (1) Paroxysmal atrial fibrillation: (2) Acute on chronic respiratory failure with hypoxia: (3) Carotid artery stenosis: (4) CAD in [place] artery: ASSESSMENT/PLAN: 1. Paroxysmal atrial fibrillation: Her rates will likely stay high provided her pulmonary status is decompensated. She has maintained atrial fibrillation since admission. However, it is likely that she will continue to cycle in and out of atrial fibrillation at times. In the past she has had an element of bradycardia with diltiazem administration. I think at this point continuing the diltiazem infusion is reasonable. Hopefully as her clinical condition improves we will see improved heart rates as well. I do believe she is a good candidate for permanent pacing. I think a pacemaker would allow us be more aggressive with her overall rate control as well as provide some atrial therapies to reduce episodes of atrial fibrillation. I discussed this with her today. I think this can be accomplished prior to discharge once her pulmonary status improves. She did have some higher heart rates and symptoms associated with nebulizer treatment last evening. She has continued on anticoagulation. INR is notably elevated today. Hopefully her INR will improve by the time we plan a procedure. 2. Acute on chronic respiratory failure with hypoxia: Continue therapy for COPD exacerbation. 3. CAD with NSTEMI (10/20/14) and PCI: She denies angina. Continue aspirin 81 mg daily indefinitely. Continue beta supa and high intensity statin therapy. 4. Hypertension: Blood pressure has been normotensive or mildly hypotensive. Admission and Anticipated Discharge Date Admission Date: October 16, 2019 Anticipated date of discharge: 10/21/19 Subjective This morning the patient states that her breathing is somewhat better. Certainly better than admission. However, she still struggling and does not feel that her breathing is back to baseline. She does have some cough productive of sputum which she feels is improvement as well. She has been ambulatory to the bathroom with some element of dizziness and fatigue. Last evening she had acute dizziness associated with the nebulizer treatment. Review of Systems Review of Systems: Per HPI Physical Exam Physical Exam: The patient is alert and oriented. Mood and affect appeared normal. He answered all questions appropriately. Cushingoid HEENT: Pupils are equal and reactive to light and accommodation. Extraocular movements are intact. The sclerae are anicteric. Neuro: Cranial nerves intact Lungs: Reduced breath sounds throughout all lung gorman. Poor excursion. Prolonged expiratory phase. Occasional crackles in the upper airways. Cardiac: Heart demonstrates an irregular rate and rhythm. Normal S1 and S2. Pulses: The patient has palpable radial pulses bilaterally that are equal in intensity Extremities: There was no evidence of hypoperfusion. Skin: I did not appreciate any rashes on examination today. Results & Data ([facility]) Vital Signs (Past 12 Hours) Vital Signs Temp Pulse Pulse Resp BP Pulse Ox 10/19/19 08:00 121 H 10/19/19 07:58 36.6 C 117 H 22 111/71 92 10/19/19 06:54 94 H 22 92 10/19/19 02:28 36.7 C 100 H 20 122/90 94 10/19/19 00:56 91 H 18 94 Laboratory Results Abnormal Lab Results 10/18/19 10/18/19 10/19/19 16:20 20:23 07:26 PT 41.0 H INR 4.5 H Sodium Potassium Chloride Carbon Dioxide Anion Gap BUN Creatinine Est Cr Clr Drug Dosing Est GFR ( Amer) Est GFR (Non-Af Amer) BUN/Creatinine Ratio Glucose POC Glucose 140 H 125 H Calcium 10/19/19 10/19/19 10/19/19 07:30 07:34 11:41 PT INR Sodium 139 Potassium 3.9 Chloride 104 Carbon Dioxide 31 Anion Gap 4.0 BUN 32 H Creatinine 1.10 Est Cr Clr Drug Dosing 55.1 Est GFR ( Amer) 57.7 Est GFR (Non-Af Amer) 49.8 BUN/Creatinine Ratio 29.5 H Glucose 93 POC Glucose 99 105 H Calcium 9.0 PG Care Time/CCT Total # of Minutes Spent Total Time Spent with Patient: Total time spent is greater than 50% in coordination of care (as documented) at patient's floor/unit and/or counseling patient: Coding Level of Care Code 72160 Subseq Hosp Care Lvl 3 Diagnoses Paroxysmal atrial fibrillation I48.0 Acute on chronic respiratory failure with hypoxia J96.21 Carotid artery stenosis I65.29 CAD in [place] artery I25.10
--- NOTE | 2019-10-19 15:19 | Hospitalist Progress Note ---
Date of Service October 19, 2019 Assessment & Plan (1) Acute on chronic respiratory failure with hypoxia: patient normally on 2.5-3L NC and wears CPAP every night with more dyspnea, more hypoxia and work of breathing for past 48 hours she had some steroids and "antibiotic" at home that made her feel a little better CXR with no obvious infiltrate, some mild pulmonary edema at time of admission, since resolved responded to Lasix but no further edema most likely cause of acute decompensation is COPD exacerbation, aflutter RVR causing some diastolic failure breathing more comfortable the past two days, more air flow on exam, no wheezing see below (2) COPD exacerbation: no wheezing heard but patient with diminished breath sounds, increased work of breathing follows with Dr. Rodríguez in clinic continue Prednisone 40mg daily, Zithromax 250mg daily Budesonide neb BID Formoterol BID Umeclidinium/Vilanterol inh daily continue Levalbuterol/Ipratropium appreciate pulmonary recommendations COPD follow up clinic referral made breathing improved over past two days, will plan to taper Prednisone, timing up to Pulmonary could consider Delirep or three times a week Zithromax given her exacerbations (3) Atrial flutter: in and out of atrial flutter in the ED, has a h/o afib and aflutter, on metoprolol and Coumadin will consult Dr. Morfin who follows her outpatient, has a h/o tachy alicia syndrome periods of RVR, tends to be better controlled when she is resting Metoprolol 25mg BID Diltiazem 30mg q6, can still use drip if needed Dr. Vincent recommends permanent pacemaker this admission so that HR control can be more aggressive INR is >4, jumped up quickly Coumadin on hold for possible pacemaker Monday (4) Acute heart failure with preserved ejection fraction: echo in August 2019 showed EF of 65%, will not repeat at this time Lasix 40mg IV given at time of admission, responded well with over 1000cc out gave additional dose at 1400 on 10/16 with decent response heart failure was most likely due to atrial flutter with RVR no further Lasix as lungs are clear and heart rate is better controlled (5) Type 2 diabetes mellitus: diabetic diet Novolog monitor for hyperglycemia on the Prednisone (6) Hypercholesterolemia: statin therapy (7) CAD in [place] artery: no chest pain, no ischemic changes on the monitor continue aspirin, statin (8) S/P coronary artery stent placement: had MT in 2014 with one stent placed no current chest pain continue aspirin (9) Obstructive sleep apnea: CPAP at night, she brought in her own machine, may use Admission and Anticipated Discharge Date Admission Date: October 16, 2019 Anticipated date of discharge: 10/23/19 Subjective patient had an episode of RVR last night, resolved with Digoxin IV HR much better today, 90-100 range patient is breathing better, moving more air on exam, no wheezing discussed with Dr. Vincent, he is recommending pacemaker this admission noted that INR jumped up to 4, Coumadin now on hold Cr is stable patient is eating better, ambulating to the bathroom with assistance Review of Systems Review of Systems: All systems reviewed & are unremarkable except as noted in HPI & below Respiratory: + cough, + dyspnea and + dyspnea on exertion Cardiovascular: no chest pain and no edema Gastrointestinal: no abdominal pain, no nausea, no vomiting, no constipation and no diarrhea/loose stools Genitourinary: no dysuria Physical Exam Constitutional: well developed, well nourished, + ill appearing and + obese Eyes: PERRL, conjunctivae normal, anicteric sclerae ENMT: external ear and nose normal, oropharynx normal Neck: trachea midline, no thyromegaly Respiratory: normal respiratory effort and + cough Auscultation: lungs clear to auscultation bilaterally (moving more air in all gorman); no crackles, no rales, no rhonchi and no wheezes Cardiovascular: Rate/Rhythm: + tachycardic and + irregularly irregular Heart Sounds: normal S1 and normal S2; no murmur Extremities: normal capillary refill; no edema Gastrointestinal (Abdomen): normal bowel sounds, soft, nontender, no hepatosplenomegaly Musculoskeletal: no cyanosis or clubbing, extremities motor strength 5/5 Skin: no rashes, warm and dry Neurologic: patellar DTR's 2+ bilat, sensation intact and PERRL, EOMI, accommodation nl, no face palsy, no dysarthria Psychiatric: A+Ox3, euthymic affect Lymphatic: no cervical or axillary lymphadenopathy Results & Data ([facility]) Vital Signs (Past 12 Hours) Vital Signs Temp Pulse Pulse Pulse Resp BP Pulse Ox 10/19/19 12:33 36.5 C 96 H 20 102/62 94 10/19/19 12:31 104 H 18 94 10/19/19 08:00 121 H 10/19/19 07:58 36.6 C 117 H 22 111/71 92 10/19/19 06:54 94 H 22 92 Laboratory Results Laboratory Results - last 24 hr 10/18/19 10/18/19 10/19/19 16:20 20:23 07:26 PT 41.0 H INR 4.5 H Sodium Potassium Chloride Carbon Dioxide Anion Gap BUN Creatinine Est Cr Clr Drug Dosing Est GFR ( Amer) Est GFR (Non-Af Amer) BUN/Creatinine Ratio Glucose POC Glucose 140 H 125 H Calcium 10/19/19 10/19/19 10/19/19 07:30 07:34 11:41 PT INR Sodium 139 Potassium 3.9 Chloride 104 Carbon Dioxide 31 Anion Gap 4.0 BUN 32 H Creatinine 1.10 Est Cr Clr Drug Dosing 55.1 Est GFR ( Amer) 57.7 Est GFR (Non-Af Amer) 49.8 BUN/Creatinine Ratio 29.5 H Glucose 93 POC Glucose 99 105 H Calcium 9.0 Medications Administered Current Inpatient Medications Acetaminophen (Tylenol) 650 mg PO Q4H PRN PRN Reason: Pain or Fever Stop: 11/15/19 08:52 Aspirin (Ecotrin Ectab) 81 mg PO [facility] Stop: 11/15/19 08:59 Last Admin: 10/19/19 08:29 Dose: 81 mg Documented by: Atorvastatin Calcium (Lipitor) 40 mg PO [facility] Stop: 11/15/19 20:59 Last Admin: 10/18/19 20:15 Dose: 40 mg Documented by: Azithromycin (Zithromax) 250 mg PO [facility]; Protocol Stop: 10/25/19 08:59 Last Admin: 10/19/19 08:30 Dose: 250 mg Documented by: Budesonide (Pulmicort Respules) 0.5 mg NEB BIDR [facility] Stop: 11/16/19 18:59 Last Admin: 10/19/19 06:52 Dose: 0.5 mg Documented by: Diltiazem HCl (Cardizem) 30 mg PO Q6H [facility] Stop: 11/17/19 15:14 Last Admin: 10/19/19 08:29 Dose: 30 mg Documented by: Formoterol Fumarate (Perforomist) 20 mcg NEB BIDR [facility] Stop: 11/16/19 18:59 Last Admin: 10/19/19 06:52 Dose: 20 mcg Documented by: Guaifenesin (Mucinex) 600 mg PO Q12 [facility] Stop: 11/16/19 20:59 Last Admin: 10/19/19 08:29 Dose: 600 mg Documented by: Diltiazem HCl 125 mg/ Dextrose 125 mls @ 0 mls/hr IV .Q0M [facility]; Protocol Stop: 11/16/19 09:29 Last Titration: 10/18/19 19:04 Dose: 0 mg/hr, 0 mls/hr Documented by: Insulin Aspart (Novolog Flexpen) 0 units SC ACHS [facility] Stop: 11/15/19 11:29 Last Admin: 10/19/19 12:23 Dose: 2 units Documented by: Ipratropium [place] (Atrovent 0.02% 0.5mg/2.5ml) 0.5 mg INH Q6R [facility] Stop: 11/15/19 12:59 Last Admin: 10/19/19 12:30 Dose: 0.5 mg Documented by: Levalbuterol HCl (Xopenex 1.25mg/0.5ml Neb) 1.25 mg INH Q6R [facility] Stop: 11/15/19 12:59 Last Admin: 10/19/19 12:30 Dose: 1.25 mg Documented by: Losartan Potassium (Cozaar) 25 mg PO QAM [facility] Stop: 11/19/19 08:59 Metoprolol Tartrate (Lopressor) 25 mg PO BID [facility] Stop: 11/15/19 08:59 Last Admin: 10/19/19 08:30 Dose: 25 mg Documented by: Cbd Soft-Gel: Non- Formulary Patient's Own Med [facility] Stop: 11/18/19 08:59 Last Admin: 10/19/19 08:31 Dose: 15 mg Documented by: Ondansetron HCl (Zofran) 4 mg IV Q6H PRN PRN Reason: Nausea Stop: 11/15/19 08:52 Pantoprazole Sodium (Protonix) 40 mg PO [facility] Stop: 11/15/19 08:59 Last Admin: 10/19/19 08:29 Dose: 40 mg Documented by: Prednisone (Prednisone) 40 [facility] Stop: 11/17/19 08:59 Last Admin: 10/19/19 08:29 Dose: 40 mg Documented by: Umeclidinium/Vilanterol (Anoro Ellipta 62.5/25 Mcg Inh) 1 puffs INH DAILY [facility] Stop: 11/17/19 08:59 Last Admin: 10/19/19 08:30 Dose: 1 puffs Documented by: Warfarin Sodium (Coumadin) 4 mg PO [email or web address] [facility] Stop: 11/15/19 15:59 Last Admin: 10/18/19 16:31 Dose: 4 mg Documented by: Warfarin Sodium (Coumadin) 3 mg PO [email or web address]@1600 [facility] Stop: 11/16/19 15:59 Last Admin: 10/17/19 17:19 Dose: 3 mg Documented by: PG Care Time/CCT Total # of Minutes Spent Total Time Spent with Patient: Total time spent is greater than 50% in coordination of care (as documented) at patient's floor/unit and/or counseling patient: Coding Level of Care Code 80099 Subseq Hosp Care Lvl 3 Diagnoses Acute on chronic respiratory failure with hypoxia J96.21 COPD exacerbation J44.1 Atrial flutter I48.92 Atrial flutter type: unspecified Acute heart failure with preserved ejection fraction I50.31 Type 2 diabetes mellitus E11.9 Hypercholesterolemia E78.00 CAD in [place] artery I25.10 S/P coronary artery stent placement Z95.5 Obstructive sleep apnea G47.33 (1) Atrial flutter Atrial flutter type: unspecified Qualified Code(s): I48.92 - Unspecified atrial flutter
[2019-10-19] MEDS: ATORVASTATIN 40 MG TAB PO SCH (20:32)
[2019-10-20] MEDS: IPRATROPIUM BROMIDE NEB SOLN 0.02% 2.5 ML VIAL INH SCH ×4 (00:39→19:04)
[2019-10-20] MEDS: LEVALBUTEROL 1.25MG/0.5ML NEB INH SCH ×4 (00:39→19:04)
[2019-10-20] MEDS: dilTIAZem HCL 30 MG TAB PO SCH ×4 (04:17→20:55)
[2019-10-20] MEDS: BUDESONIDE 0.5 MG/2 ML VIAL (PULMICORT) NEB SCH ×2 (07:28→19:02)
[2019-10-20] MEDS: FORMOTEROL 20 MCG/2 ML VIAL NEB SCH ×2 (07:28→19:02)
[2019-10-20 08:23] LABS: Hematocrit (blood only) 44.2 % (37-47); Hemoglobin 14.4 g/dL (12.0-16.0); Mean Corpuscular Hemoglobin 28.7 pg (25-34); Mean Corpuscular Hgb Conc 32.6 g/dL (32-36); Mean Corpuscular Volume 88.2 fL (80-100); Mean Platelet Volume 10.4 fL (7.4-10.4); Platelet Count 212 K/uL (130-400); RDW Coefficient of Variation 14.9 % (11.5-14.5); Red Blood Count 5.01 M/uL (4.2-5.4); White Blood Count 9.31 K/uL (4.8-10.8)
[2019-10-20 08:33] LABS: INR 3.5 (0.9-1.1); Prothrombin Time 32.4 Seconds (9.0-12.0)
[2019-10-20] MEDS: INSULIN ASPART 100 UNITS/ML 3 ML PEN SC SCH ×4 (08:48→21:50)
[2019-10-20] MEDS: predniSONE 20 MG TAB PO SCH (08:49)
[2019-10-20] MEDS: METOPROLOL TARTRATE 25 MG TAB PO SCH ×2 (08:49→21:46)
[2019-10-20] MEDS: PANTOprazole 40 MG TAB PO SCH (08:49)
[2019-10-20] MEDS: LOSARTAN POTASSIUM 25 MG TAB PO SCH (08:49)
[2019-10-20] MEDS: guaiFENesin 600 MG TABCR PO SCH ×2 (08:49→21:46)
[2019-10-20] MEDS: AZITHROMYCIN 250 MG TAB PO SCH (08:49)
[2019-10-20] MEDS: ASPIRIN 81 MG ECTAB PO SCH (08:50)
[2019-10-20] MEDS: UMECLIDINIUM/VILANTEROL 62.5/25MCG 7 PUFFS/INHALER INH SCH (08:50)
[2019-10-20] MEDS: CANNABIDIOL PO SCH (08:51)
[2019-10-20 08:53] LABS: Creatinine Clr Calc Pharmacy 63.6 ml/min; Est GFR (African American) 68.9; Est GFR (Non-African American) 59.4; Potassium 3.6 mmol/L (3.5-5.1)
--- NOTE | 2019-10-20 09:26 | Pulmonology Progress Note ---
Date of Service October 20, 2019 Assessment & Plan (1) [place] and COPD overlap syndrome: Impression: 74 y/o F with morbid obesity and overlap syndrome admitted with exacerbation of COPD as well as atrial fibrillation with rapid ventricular response. Her last PFTs performed in December 2018 showed an FEV1 of 0.8 L or 40% predicted Recommendations: 1. COPD exacerbation: Continue azithromycin Pulmicort and Perforomist and Incruse. Continue prednisone for now. She does not appear overtly bron chospastic. Given the frequency of his exacerbations, consideration for 3 times a week azithromycin as an outpatient may be beneficial. Could also consider Daliresp or potential theophylline in the outpatient setting although would not favor theophylline given her recurrent atrial arrhythmias and potential risk for worsening of her arrhythmia. 2. [place]/overlap syndrome: The patient's blood gas did show mildly elevated CO2. There is likely a component of obesity hypoventilation superimposed on this. Her home CPAP setting is 9 cmH2O with a resultant AHI of 1.8. Unclear if she would benefit from bilevel to assist her elevated CO2 or potential transition to trilogy. Will defer to Dr. higgins in the outpatient setting. Continue CPAP nightly and when sleeping in the hospital. 3. Dyspnea on exertion: I suspect this is multifactorial due to combinations of obstructive lung disease, diastolic dysfunction, atrial fibrillation, deconditioning, and obesity. The patient was advised that she needs to become more active. Questioning the patient reveals that she only walks for about 10 feet at a time at home. This is undoubtedly contributing to her symptoms. PT OT and formal weight loss program may be beneficial. She would also benefit from pulmonary rehab Continued slow improvement. The patient was advised that she needs to increase her activity level and continue efforts at weight loss. (2) COPD exacerbation: Recent PFTs 01/25/2019 FVC 61 (70) FEV1 40 (47) FEV1/FVC 65 (66) DLCO unc 48 (3) Hypoxia: Subjective Patient reports some subjective improvement in her breathing. She continues to use CPAP at night. She is coughing less and wheezing less. Continues to experience dyspnea with significant physical activity. Cardiology is contemplating a pacemaker/ablation for her atrial fibrillation.. Review of Systems Review of Systems: Unchanged from prior Physical Exam Constitutional: well developed, well nourished and + obese Eyes: PERRL, conjunctivae normal, anicteric sclerae ENMT: external ear and nose normal, oropharynx normal Neck: trachea midline, no thyromegaly Respiratory: + labored breathing, + cough and + tachypneic Auscultation: + diminished lung sounds; no crackles, no rales, no rhonchi and no wheezes Cardiovascular: Rate/Rhythm: + irregularly irregular Heart Sounds: normal S1 and normal S2; no murmur Extremities: normal capillary refill; no edema Gastrointestinal (Abdomen): normal bowel sounds, soft, nontender, no hepatosplenomegaly Musculoskeletal: no cyanosis or clubbing, extremities motor strength 5/5 Skin: no rashes, warm and dry Results & Data ([facility]) Vital Signs (Past 12 Hours) Vital Signs Temp Pulse Resp BP BP Pulse Ox 10/20/19 08:02 37.0 C 101 H 22 116/73 90 10/20/19 07:31 94 H 16 93 10/20/19 04:34 36.8 C 90 16 132/70 98 10/20/19 00:39 98 H 18 92 10/19/19 23:28 36.7 C 109 H 20 109/74 95 Laboratory Results 10/20/19 08:14 10/20/19 08:14 Diagnostic Findings No new imaging PG Care Time/CCT Total # of Minutes Spent Total Time Spent with Patient: Total time spent is greater than 50% in coordination of care (as documented) at patient's floor/unit and/or counseling patient: Coding Level of Care Code 91396 Subseq Hosp Care Lvl 2 Diagnoses [place] and COPD overlap syndrome G47.33; J44.9 COPD exacerbation J44.1 Hypoxia R09.02
--- NOTE | 2019-10-20 10:14 | Cardiology Progress Note ---
Date of Service October 20, 2019 Assessment & Plan (1) Paroxysmal atrial fibrillation: (2) Acute on chronic respiratory failure with hypoxia: (3) Carotid artery stenosis: (4) CAD in [place] artery: ASSESSMENT/PLAN: 1. Paroxysmal atrial fibrillation: Overall rates are better. This may be due to improving clinical status overall. However, she clearly has an element of tachy-alicia syndrome. We again discussed the utility of a permanent pacemaker. We have agreed that we will proceed when her INR is acceptable. We discussed the risks benefits and alternatives. Hopefully we can proceed tomorrow. She will continue on diltiazem currently. We can discuss the need for aspirin in addition to warfarin prior to discharge. 2. Acute on chronic respiratory failure with hypoxia: Improving. Continue therapy for COPD exacerbation. 3. CAD with NSTEMI (10/20/14) and PCI: She denies angina. Continue beta supa and high intensity statin therapy. 4. Hypertension: Blood pressure has been normotensive or mildly hypotensive. Admission and Anticipated Discharge Date Admission Date: October 16, 2019 Anticipated date of discharge: 10/23/19 Subjective This morning patient claims to be feeling better. She was able ambulate around the room with less dyspnea. She has not report any significant dizziness recently. She does have dizziness on occasion with forceful coughing. No sense of palpitation. No chest pain. A cough productive of some scant sputum on occasion. Review of Systems Review of Systems: Per HPI Physical Exam Physical Exam: The patient is alert and oriented. Mood and affect appeared normal. He answered all questions appropriately. Cushingoid HEENT: Pupils are equal and reactive to light and accommodation. Extraocular movements are intact. The sclerae are anicteric. Neuro: Cranial nerves intact Lungs: Reduced breath sounds throughout all lung gorman. Poor excursion. Prolonged expiratory phase. Occasional crackles in the upper airways. Cardiac: Heart demonstrates an irregular rate and rhythm. Normal S1 and S2. Pulses: The patient has palpable radial pulses bilaterally that are equal in intensity Extremities: There was no evidence of hypoperfusion. Skin: I did not appreciate any rashes on examination today. Results & Data ([facility]) Vital Signs (Past 12 Hours) Vital Signs Temp Pulse Resp BP BP Pulse Ox 10/20/19 08:02 37.0 C 101 H 22 116/73 90 10/20/19 07:31 94 H 16 93 10/20/19 04:34 36.8 C 90 16 132/70 98 10/20/19 00:39 98 H 18 92 10/19/19 23:28 36.7 C 109 H 20 109/74 95 Laboratory Results Abnormal Lab Results 10/19/19 10/19/19 10/19/19 11:41 16:04 20:42 WBC RBC Hgb Hct MCV MCH MCHC RDW Std Deviation RDW Coeff of Mark Plt Count MPV PT INR Sodium Potassium Chloride Carbon Dioxide Anion Gap BUN Creatinine Est Cr Clr Drug Dosing Est GFR ( Amer) Est GFR (Non-Af Amer) POC Glucose 105 H 176 H 127 H Fasting Glucose Calcium 10/20/19 10/20/19 10/20/19 07:32 08:14 08:14 WBC 9.31 RBC 5.01 Hgb 14.4 Hct 44.2 MCV 88.2 MCH 28.7 MCHC 32.6 RDW Std Deviation 48.0 H RDW Coeff of Mark 14.9 H Plt Count 212 MPV 10.4 PT 32.4 H INR 3.5 H Sodium Potassium Chloride Carbon Dioxide Anion Gap BUN Creatinine Est Cr Clr Drug Dosing Est GFR ( Amer) Est GFR (Non-Af Amer) POC Glucose 89 Fasting Glucose Calcium 10/20/19 08:14 WBC RBC Hgb Hct MCV MCH MCHC RDW Std Deviation RDW Coeff of Mark Plt Count MPV PT INR Sodium 140 Potassium 3.6 Chloride 107 Carbon Dioxide 28 Anion Gap 5.0 BUN 26 H Creatinine 0.95 Est Cr Clr Drug Dosing 63.6 Est GFR ( Amer) 68.9 Est GFR (Non-Af Amer) 59.4 POC Glucose Fasting Glucose 159 H Calcium 9.0 PG Care Time/CCT Total # of Minutes Spent Total Time Spent with Patient: Total time spent is greater than 50% in coordination of care (as documented) at patient's floor/unit and/or counseling patient: Coding Level of Care Code 99538 Subseq Hosp Care Lvl 3 Diagnoses Paroxysmal atrial fibrillation I48.0 Acute on chronic respiratory failure with hypoxia J96.21 Carotid artery stenosis I65.29 CAD in [place] artery I25.10
--- NOTE | 2019-10-20 16:36 | Hospitalist Progress Note ---
Date of Service October 20, 2019 Assessment & Plan (1) Acute on chronic respiratory failure with hypoxia: patient normally on 2.5-3L NC and wears CPAP every night with more dyspnea, more hypoxia and work of breathing for 48 hours prior to admission she had some steroids and "antibiotic" at home that made her feel a little better CXR with no obvious infiltrate, some mild pulmonary edema at time of admission, since resolved responded to Lasix but no further edema most likely cause of acute decompensation is COPD exacerbation, aflutter RVR causing some diastolic failure breathing more comfortable the past three days, more air flow on exam, no wheezing see below (2) COPD exacerbation: no wheezing heard but patient with diminished breath sounds, increased work of breathing follows with Dr. Rodríguez in clinic continue Prednisone 40mg daily, Zithromax 250mg daily will taper Prednisone on discharge consider three times a week Zithromax due to exacerbations Budesonide neb BID Formoterol BID Umeclidinium/Vilanterol inh daily continue Levalbuterol/Ipratropium appreciate pulmonary recommendations COPD follow up clinic referral made breathing much improved over past three days (3) Atrial flutter: in and out of atrial flutter in the ED, has a h/o afib and aflutter, on metoprolol and Coumadin Dr. Morfin follows her outpatient, has a h/o tachy alicia syndrome periods of RVR, tends to be better controlled when she is resting Metoprolol 25mg BID Diltiazem 30mg q6, can still use drip if needed Dr. Vincent recommends permanent pacemaker this admission so that HR control can be more aggressive INR down to 3.5 after holding Coumadin on 10/19, hold again today repeat INR tomorrow morning possible pacemaker Saturday 10/21 if INR < 2 anticipate that she will be here until pacemaker placed, then keep overnight after that procedure (4) Acute heart failure with preserved ejection fraction: echo in August 2019 showed EF of 65%, will not repeat at this time Lasix 40mg IV given at time of admission, responded well with over 1000cc out gave additional dose at 1400 on 10/16 with decent response heart failure was most likely due to atrial flutter with RVR no further Lasix as lungs are clear and heart rate is better controlled (5) Type 2 diabetes mellitus: diabetic diet Novolog monitor for hyperglycemia on the Prednisone (6) Hypercholesterolemia: statin therapy (7) CAD in [place] artery: no chest pain, no ischemic changes on the monitor continue aspirin, statin (8) S/P coronary artery stent placement: had [place] in 2014 with one stent placed no current chest pain continue aspirin (9) Obstructive sleep apnea: CPAP at night, she brought in her own machine, may use consulted PT/OT to evaluate, she lives at home alone discussed with her the possibility of short term rehab and she is open to it her daughter is having surgery and will be unable to check in on her for a short period of time Admission and Anticipated Discharge Date Admission Date: October 16, 2019 Anticipated date of discharge: 10/23/19 Subjective patient feeling much better today, breathing is getting close to baseline HR remains fairly well controlled, 80-100 on monitor, no RVR over night d/w Dr. Vincent, tentatively plan for pacemaker tomorrow, follow up on INR tomorrow morning cough is controlled, certainly decreased since admission no fever/chills, no chest pain she is OOB in chair today, feeling stronger, discussed getting therapy evaluations, she agrees will be NPO after midnight Review of Systems Review of Systems: All systems reviewed & are unremarkable except as noted in HPI & below Constitutional: + fatigue and + weakness; no fever and no sweats Respiratory: + cough, + dyspnea and + dyspnea on exertion; no wheezing Cardiovascular: no chest pain and no edema Gastrointestinal: no abdominal pain, no nausea, no vomiting, no constipation and no diarrhea/loose stools Musculoskeletal: + muscle weakness Physical Exam Constitutional: well developed, well nourished and + obese Eyes: PERRL, conjunctivae normal, anicteric sclerae ENMT: external ear and nose normal, oropharynx normal Neck: trachea midline, no thyromegaly Respiratory: normal respiratory effort and + cough Auscultation: lungs clear to auscultation bilaterally (moving more air in all g[place]); no crackles, no rales, no rhonchi and no wheezes Cardiovascular: Rate/Rhythm: regular rate and + irregularly irregular Heart Sounds: normal S1 and normal S2; no murmur Extremities: normal capillary refill; no edema Gastrointestinal (Abdomen): normal bowel sounds, soft, nontender, no hepatosplenomegaly Musculoskeletal: no cyanosis or clubbing, extremities motor strength 5/5 Skin: no rashes, warm and dry Neurologic: patellar DTR's 2+ bilat, sensation intact and PERRL, EOMI, accommodation nl, no face palsy, no dysarthria Psychiatric: A+Ox3, euthymic affect Lymphatic: no cervical or axillary lymphadenopathy Results & Data ([facility]) Vital Signs (Past 12 Hours) Vital Signs Temp Pulse Pulse Resp BP Pulse Ox 10/20/19 15:27 36.7 C 105 H 22 129/80 90 10/20/19 13:22 95 H 16 93 10/20/19 11:05 36.3 C L 75 20 101/68 92 10/20/19 08:02 37.0 C 101 H 22 116/73 90 10/20/19 07:31 94 H 16 93 Laboratory Results Laboratory Results - last 24 hr 10/20/19 10/20/19 10/20/19 07:32 08:14 08:14 WBC 9.31 RBC 5.01 Hgb 14.4 Hct 44.2 MCV 88.2 MCH 28.7 MCHC 32.6 RDW Std Deviation 48.0 H RDW Coeff of Mark 14.9 H Plt Count 212 MPV 10.4 PT 32.4 H INR 3.5 H Sodium Potassium Chloride Carbon Dioxide Anion Gap BUN Creatinine Est Cr Clr Drug Dosing Est GFR ( Amer) Est GFR (Non-Af Amer) POC Glucose 89 Fasting Glucose Calcium 10/20/19 10/20/19 10/20/19 08:14 11:15 15:44 WBC RBC Hgb Hct MCV MCH MCHC RDW Std Deviation RDW Coeff of Mark Plt Count MPV PT INR Sodium 140 Potassium 3.6 Chloride 107 Carbon Dioxide 28 Anion Gap 5.0 BUN 26 H Creatinine 0.95 Est Cr Clr Drug Dosing 63.6 Est GFR ( Amer) 68.9 Est GFR (Non-Af Amer) 59.4 POC Glucose 97 183 H Fasting Glucose 159 H Calcium 9.0 10/20/19 20:19 WBC RBC Hgb Hct MCV MCH MCHC RDW Std Deviation RDW Coeff of Mark Plt Count MPV PT INR Sodium Potassium Chloride Carbon Dioxide Anion Gap BUN Creatinine Est Cr Clr Drug Dosing Est GFR ( Amer) Est GFR (Non-Af Amer) POC Glucose 135 H Fasting Glucose Calcium Medications Administered Current Inpatient Medications Acetaminophen (Tylenol) 650 mg PO Q4H PRN PRN Reason: Pain or Fever Stop: 11/15/19 08:52 Aspirin (Ecotrin Ectab) 81 mg PO QAM [facility] Stop: 11/15/19 08:59 Last Admin: 10/20/19 08:50 Dose: 81 mg Documented by: Atorvastatin Calcium (Lipitor) 40 mg PO HS [facility] Stop: 11/15/19 20:59 Last Admin: 10/19/19 20:32 Dose: 40 mg Documented by: Azithromycin (Zithromax) 250 mg PO QAM [facility]; Protocol Stop: 10/25/19 08:59 Last Admin: 10/20/19 08:49 Dose: 250 mg Documented by: Budesonide (Pulmicort Respules) 0.5 mg NEB BIDR [facility] Stop: 11/16/19 18:59 Last Admin: 10/20/19 19:02 Dose: 0.5 mg Documented by: Diltiazem HCl (Cardizem) 30 mg PO Q6H [facility] Stop: 11/17/19 15:14 Last Admin: 10/20/19 17:50 Dose: 30 mg Documented by: Formoterol Fumarate (Perforomist) 20 mcg NEB BIDR [facility] Stop: 11/16/19 18:59 Last Admin: 10/20/19 19:02 Dose: 20 mcg Documented by: Guaifenesin (Mucinex) 600 mg PO Q12 [facility] Stop: 11/16/19 20:59 Last Admin: 10/20/19 08:49 Dose: 600 mg Documented by: Diltiazem HCl 125 mg/ Dextrose 125 mls @ 0 mls/hr IV .Q0M [facility]; Protocol Stop: 11/16/19 09:29 Last Titration: 10/18/19 19:04 Dose: 0 mg/hr, 0 mls/hr Documented by: Insulin Aspart (Novolog Flexpen) 0 units SC ACHS [facility] Stop: 11/15/19 11:29 Last Admin: 10/20/19 16:50 Dose: 9 units Documented by: Ipratropium [place] (Atrovent 0.02% 0.5mg/2.5ml) 0.5 mg INH Q6R [facility] Stop: 11/15/19 12:59 Last Admin: 10/20/19 19:04 Dose: Not Given Documented by: Levalbuterol HCl (Xopenex 1.25mg/0.5ml Neb) 1.25 mg INH Q6R [facility] Stop: 11/15/19 12:59 Last Admin: 10/20/19 19:04 Dose: Not Given Documented by: Losartan Potassium (Cozaar) [facility] [facility] [place] Stop: 11/19/19 08:59 Last Admin: 10/20/19 08:49 Dose: 25 mg Documented by: Metoprolol Tartrate (Lopressor) 25 mg PO BID [facility] Stop: 11/15/19 08:59 Last Admin: 10/20/19 08:49 Dose: 25 mg Documented by: Cbd Soft-Gel: Non- Formulary Patient's Own Med 1 ea PO [facility] Stop: 11/18/19 08:59 Last Admin: 10/20/19 08:51 Dose: 15 mg Documented by: Ondansetron HCl (Zofran) 4 mg IV Q6H PRN PRN Reason: Nausea Stop: 11/15/19 08:52 Pantoprazole Sodium (Protonix) 40 mg PO [facility] Stop: 11/15/19 08:59 Last Admin: 10/20/19 08:49 Dose: 40 mg Documented by: Prednisone (Prednisone) [facility] [facility] [place] Stop: 11/17/19 08:59 Last Admin: 10/20/19 08:49 Dose: 40 mg Documented by: Umeclidinium/Vilanterol (Anoro Ellipta 62.5/25 Mcg Inh) 1 puffs INH DAILY [facility] Stop: 11/17/19 08:59 Last Admin: 10/20/19 08:50 Dose: 1 puffs Documented by: Warfarin Sodium (Coumadin) 4 mg PO MoWeFr@1600 [facility] Stop: 11/15/19 15:59 Last Admin: 10/18/19 16:31 Dose: 4 mg Documented by: Warfarin Sodium (Coumadin) 3 mg PO SuTuThSa@1600 [facility] Stop: 11/16/19 15:59 Last Admin: 10/17/19 17:19 Dose: 3 mg Documented by: PG Care Time/CCT Total # of Minutes Spent Total Time Spent with Patient: Total time spent is greater than 50% in coordination of care (as documented) at patient's floor/unit and/or counseling patient: Coding Level of Care Code 85768 Subseq Hosp Care Lvl 3 Diagnoses Acute on chronic respiratory failure with hypoxia J96.21 COPD exacerbation J44.1 Atrial flutter I48.92 Atrial flutter type: unspecified Acute heart failure with preserved ejection fraction I50.31 Type 2 diabetes mellitus E11.9 Hypercholesterolemia E78.00 CAD in [place] artery I25.10 S/P coronary artery stent placement Z95.5 Obstructive sleep apnea G47.33 (1) Atrial flutter Atrial flutter type: unspecified Qualified Code(s): I48.92 - Unspecified atrial flutter
[2019-10-20] MEDS: ATORVASTATIN 40 MG TAB PO SCH (21:46)
[2019-10-20] MEDS ORDERED: Nursing to Pharmacy Communication ONE (23:34)
[2019-10-20] MEDS ORDERED: GLUCAGON FOR INJ 1 MG VIAL SQ PRN (23:45)
[2019-10-20] MEDS ORDERED: DEXTROSE 50% 50 ML SYRINGE IV PRN (23:45)
[2019-10-20] MEDS ORDERED: GLUCOSE 40% GEL 15 GM TUBE PO PRN (23:45)
[2019-10-20] MEDS ORDERED: GLUCOSE 10 TABS/TUBE PO PRN (23:45)
[2019-10-20] MEDS ORDERED: CARBOHYDRATES FOR HYPOGLYCEMIA PO PRN (23:45)
[2019-10-21] MEDS: INSULIN ASPART 100 UNITS/ML 3 ML PEN SC SCH ×5 (00:21→20:23)
[2019-10-21] MEDS: LEVALBUTEROL 1.25MG/0.5ML NEB INH SCH ×4 (00:59→19:21)
[2019-10-21] MEDS: IPRATROPIUM BROMIDE NEB SOLN 0.02% 2.5 ML VIAL INH SCH ×4 (00:59→19:21)
[2019-10-21] MEDS: dilTIAZem HCL 30 MG TAB PO SCH ×4 (04:11→22:05)
[2019-10-21] MEDS: BUDESONIDE 0.5 MG/2 ML VIAL (PULMICORT) NEB SCH ×2 (07:04→19:21)
[2019-10-21] MEDS: FORMOTEROL 20 MCG/2 ML VIAL NEB SCH ×2 (07:05→19:21)
[2019-10-21 07:55] LABS: INR 2.1 (0.9-1.1)
[2019-10-21 08:18] LABS: BUN Creatinine Ratio 30.9 (10-20); Calcium 9.2 mg/dl (8.5-10.1); Creatinine Clr Calc Pharmacy 76.5 ml/min; Est GFR (African American) 86.1; Est GFR (Non-African American) 74.3; Potassium 3.7 mmol/L (3.5-5.1)
[2019-10-21] MEDS: UMECLIDINIUM/VILANTEROL 62.5/25MCG 7 PUFFS/INHALER INH SCH (09:16)
--- NOTE | 2019-10-21 09:20 | Cardiology Progress Note ---
Date of Service October 21, 2019 Assessment & Plan (1) Paroxysmal atrial fibrillation: (2) Acute on chronic respiratory failure with hypoxia: (3) Carotid artery stenosis: (4) CAD in [place] artery: ASSESSMENT/PLAN: 1. Paroxysmal atrial fibrillation: She had a prolonged episode of atrial fibrillation but converted to sinus rhythm yesterday. She has had evidence of tachy-alicia syndrome and pacemaker placement is pending with Dr. Vincent to allow for more aggressive rate controlling medications. Continue anticoagulation for stroke risk reduction. She has declined NOAC agents. 2. Acute on chronic respiratory failure with hypoxia: She does not appear hypervolemic on exam. Her breathing did not improve significantly with diuresis and presentation is most consistent with COPD exacerbation. She became azotemic with diuresis on presentation. Chest x-ray findings are chronic and stable. Her weight has been down at home. She does not have a history of CHF. She reports no significant improvement in her breathing but clinically she appears much improved since Monday. Continue COPD treatment as per pulmonology. 3. CAD with NSTEMI (10/20/14) and PCI: No angina. Continue aspirin 81 mg daily indefinitely. Continue beta supa and high intensity statin therapy. 4. Hypertension: Blood pressure acceptable. Continue current regimen. 5. Carotid artery stenosis: There has been progression noted ICA stenosis. Recommend vascular follow-up as an outpatient. 6. Disposition: I will be away from the hospital tomorrow. Dr. Vincent will assist in her medical care as he is planning on pacemaker placement. Admission and Anticipated Discharge Date Admission Date: October 16, 2019 Anticipated date of discharge: 10/23/19 Subjective When asked if her breathing is feeling better, she stated no. Her daughter is present at the bedside and she has noted that she overall looks better from a breathing standpoint. She denies orthopnea, syncope, near-syncope, palpitations, chest pain, or edema. She converted to sinus rhythm yesterday at approximately 4:40 p.m.. She has been seen by Dr. Vincent electrophysiology and there are plans to pursue pacemaker placement when INR is acceptable. Review of systems: As above. Physical Exam Physical Exam: Gen.: No acute distress. Alert and oriented. HEENT: Anicteric sclera. Neck: No JVD. Thick neck. Cardiac: Regular. Normal S1-S2. No audible murmur. No rubs or gallops. Pulmonary: Decreased breath sounds throughout, but otherwise clear to auscultation bilaterally without wheezes, rales, or rhonchi. Improved lung sounds compared to last week. Abdomen: Soft, nontender, nondistended, with normoactive bowel sounds. No bruits noted. Extremities: No edema. No cyanosis. Psychiatric: Affect appears appropriate. Results & Data ([facility]) Vital Signs (Past 12 Hours) Vital Signs Temp Pulse Pulse Resp BP BP Pulse Ox 10/21/19 07:58 71 10/21/19 07:54 36.6 C 71 20 122/73 88 L 10/21/19 07:21 59 L 18 91 10/21/19 04:18 36.6 C 71 19 119/65 90 10/21/19 01:01 78 20 92 10/20/19 23:33 36.3 C L 59 L 19 122/76 94 Intake & Output 10/19/19 10/20/19 10/21/19 10/22/19 06:59 06:59 06:59 06:59 Intake Total 1007.917 / 1007.917 740 / 740 950 / 950 Output Total 300 / 300 Balance 707.917 / 707.917 740 / 740 950 / 950 Weight 112.9 kg 112.5 kg 112.4 kg Laboratory Results Laboratory Results - last 24 hr 10/20/19 10/20/19 10/20/19 11:15 15:44 20:19 PT INR Sodium Potassium Chloride Carbon Dioxide Anion Gap BUN Creatinine Est Cr Clr Drug Dosing Est GFR ( Amer) Est GFR (Non-Af Amer) BUN/Creatinine Ratio Glucose POC Glucose 97 183 H 135 H Calcium 10/21/19 10/21/19 10/21/19 00:06 06:32 07:16 PT INR Sodium 140 Potassium 3.7 Chloride 105 Carbon Dioxide 31 Anion Gap 4.0 BUN 25 H Creatinine 0.79 Est Cr Clr Drug Dosing 76.5 Est GFR ( Amer) 86.1 Est GFR (Non-Af Amer) 74.3 BUN/Creatinine Ratio 30.9 H Glucose 88 POC Glucose 111 H 84 Calcium 9.2 10/21/19 07:16 PT 20.0 H INR 2.1 H Sodium Potassium Chloride Carbon Dioxide Anion Gap BUN Creatinine Est Cr Clr Drug Dosing Est GFR ( Amer) Est GFR (Non-Af Amer) BUN/Creatinine Ratio Glucose POC Glucose Calcium Diagnostic Findings Telemetry personally reviewed: Currently sinus rhythm. She converted from atrial fibrillation to sinus rhythm yesterday at approximately 4:40 p.m. Medications Administered Current Inpatient Medications Acetaminophen (Tylenol) 650 mg PO Q4H PRN PRN Reason: Pain or Fever Stop: 11/15/19 08:52 Aspirin (Ecotrin Ectab) 81 mg PO QAM [facility] Stop: 11/15/19 08:59 Last Admin: 10/20/19 08:50 Dose: 81 mg Documented by: Atorvastatin Calcium (Lipitor) 40 mg PO HS [facility] Stop: 11/15/19 20:59 Last Admin: 10/20/19 21:46 Dose: 40 mg Documented by: Azithromycin ([facility]romax) [facility] Protocol Stop: 10/25/19 08:59 Last Admin: 10/20/19 08:49 Dose: 250 mg Documented by: Budesonide (Pulmicort Respules) 0.5 mg NEB BIDR [facility] Stop: 11/16/19 18:59 Last Admin: 10/21/19 07:04 Dose: 0.5 mg Documented by: Dextrose (Dextrose 50%) 25 - 50 ml IV UD PRN; Protocol PRN Reason: Hypoglycemia Protocol Stop: 11/19/19 23:44 Diltiazem HCl (Cardizem) 30 mg PO Q6H [facility] Stop: 11/17/19 15:14 Last Admin: 10/21/19 04:11 Dose: 30 mg Documented by: Formoterol Fumarate (Perforomist) 20 mcg NEB BIDR [facility] Stop: 11/16/19 18:59 Last Admin: 10/21/19 07:05 Dose: 20 mcg Documented by: Glucagon (Glucagen) 1 mg SQ UD PRN; Protocol PRN Reason: Hypoglycemia Protocol Stop: 11/19/19 23:44 Glucose (Glucose 40%) 15 - 30 gm PO UD PRN; Protocol PRN Reason: Hypoglycemia Protocol Stop: 11/19/19 23:44 Glucose (Dex4 Glucose) 4 - 8 tabs PO UD PRN; Protocol PRN Reason: Hypoglycemia Protocol Stop: 11/19/19 23:44 Guaifenesin (Mucinex) 600 mg PO Q12 [facility] Stop: 11/16/19 20:59 Last Admin: 10/20/19 21:46 Dose: 600 mg Documented by: Diltiazem HCl 125 mg/ Dextrose 125 mls @ 0 mls/hr IV .Q0M [facility]; Protocol Stop: 11/16/19 09:29 Last Titration: 10/18/19 19:04 Dose: 0 mg/hr, 0 mls/hr Documented by: Insulin Aspart (Novolog Flexpen) 0 units SC Q6 [facility] Stop: 11/20/19 00:00 Last Admin: 10/21/19 06:41 Dose: Not Given Documented by: Ipratropium [place] (Atrovent 0.02% 0.5mg/2.5ml) 0.5 mg INH Q6R [facility] Stop: 11/15/19 12:59 Last Admin: 10/21/19 07:05 Dose: 0.5 mg Documented by: Levalbuterol HCl (Xopenex 1.25mg/0.5ml Neb) 1.25 mg INH Q6R [facility] Stop: 11/15/19 12:59 Last Admin: 10/21/19 07:05 Dose: 1.25 mg Documented by: Losartan Potassium (Cozaar) 25 mg PO [facility] Stop: 11/19/19 08:59 Last Admin: 10/20/19 08:49 Dose: 25 mg Documented by: Metoprolol Tartrate (Lopressor) 25 mg PO BID [facility] Stop: 11/15/19 08:59 Last Admin: 10/20/19 21:46 Dose: 25 mg Documented by: Miscellaneous (Carbohydrates For Hypoglycemia) 15 - 30 gm PO UD PRN PRN Reason: Hypoglycemia Treatment Stop: 11/19/19 23:44 Cbd Soft-Gel: Non- Formulary Patient's Own Med 1 ea PO [facility] Stop: 11/18/19 08:59 Last Admin: 10/20/19 08:51 Dose: 15 mg Documented by: Ondansetron HCl (Zofran) 4 mg IV Q6H PRN PRN Reason: Nausea Stop: 11/15/19 08:52 Pantoprazole Sodium (Protonix) [facility] Stop: 11/15/19 08:59 Last Admin: 10/20/19 08:49 Dose: 40 mg Documented by: Prednisone (Prednisone) 40 mg PO [facility] Stop: 11/17/19 08:59 Last Admin: 10/20/19 08:49 Dose: 40 mg Documented by: Umeclidinium/Vilanterol (Anoro Ellipta 62.5/25 Mcg Inh) 1 puffs INH DAILY [facility] Stop: 11/17/19 08:59 Last Admin: 10/21/19 09:16 Dose: 1 puffs Documented by: PG Care Time/CCT Total # of Minutes Spent Total Time Spent with Patient: Total time spent is greater than 50% in coordination of care (as documented) at patient's floor/unit and/or counseling patient: Coding Level of Care Code 00093 Subseq Hosp Care Lvl 3 Diagnoses Paroxysmal atrial fibrillation I48.0 Acute on chronic respiratory failure with hypoxia J96.21 Carotid artery stenosis I65.29 CAD in [place] artery I25.10
[2019-10-21] MEDS: guaiFENesin 600 MG TABCR PO SCH ×2 (09:52→20:23)
[2019-10-21] MEDS: LOSARTAN POTASSIUM 25 MG TAB PO SCH (09:52)
[2019-10-21] MEDS: ASPIRIN 81 MG ECTAB PO SCH (09:52)
[2019-10-21] MEDS: predniSONE 20 MG TAB PO SCH (09:52)
[2019-10-21] MEDS: AZITHROMYCIN 250 MG TAB PO SCH (09:52)
[2019-10-21] MEDS: PANTOprazole 40 MG TAB PO SCH (09:53)
[2019-10-21] MEDS: METOPROLOL TARTRATE 25 MG TAB PO SCH ×2 (09:53→22:04)
[2019-10-21] MEDS: CANNABIDIOL PO SCH (09:54)
[2019-10-21] MEDS ORDERED: BACITRACIN INJ 50,000 UNIT VIAL ONE (12:50)
[2019-10-21] MEDS ORDERED: BUPIVACAINE 0.25% 30 ML VIAL ONE (12:50)
[2019-10-21] MEDS ORDERED: LIDOCAINE HCL 1% 20 ML VIAL ONE ×2 (12:50→13:26)
--- NOTE | 2019-10-21 12:52 | Pre Anesthesia Assessment ---
Date of Service October 21, 2019 Pre Sedation Assessment Vital Signs Temp Pulse Pulse Pulse Resp BP BP 10/21/19 11:23 10/21/19 10:52 36.7 C 58 L 20 105/62 10/21/19 07:58 71 10/21/19 07:54 36.6 C 71 20 122/73 10/21/19 07:21 59 L 18 10/21/19 04:18 36.6 C 71 19 119/65 10/21/19 01:01 78 20 10/20/19 23:33 36.3 C L 59 L 19 122/76 10/20/19 19:04 74 18 10/20/19 19:02 36.7 C 71 19 154/75 H 10/20/19 15:27 36.7 C 105 H 22 129/80 10/20/19 13:22 95 H 16 Pulse Ox 10/21/19 11:23 89 L 10/21/19 10:52 94 10/21/19 07:58 10/21/19 07:54 88 L 10/21/19 07:21 91 10/21/19 04:18 90 10/21/19 01:01 92 10/20/19 23:33 94 10/20/19 19:04 91 10/20/19 19:02 93 10/20/19 15:27 90 10/20/19 13:22 93 Cardiovascular + regular rate Respiratory + able to speak in complete sentences and + prolonged expiratory phase Pre-Sedation Airway Assessment Smoking Status: Former smoker Hx Sleep Apnea: Yes Hx Difficult Intubation: No Short, Thick Neck: No Thyromental Distance: > or= 3.5 Finger Breadths Oral Cavity: + WNL Mallampati Class: II ASA: ASA3 NPO Status Date of Last Intake of Fluids: 10/20/19 Date of Last Intake of Solid Food: 10/20/19 Procedure Planning Contraindications for Sedation: none Current Medications Reviewed: Yes Notes The planned sedation has been discussed with the patient. Informed Consent was obtained. I have identified the patient, determined the appropriateness of sedation and have assessed the patient immediately prior to the procedure. All medicine(s) and interventions are by my order.
[2019-10-21] MEDS ORDERED: fentaNYL citrate 100 MCG/2 ML VIAL ONE ×2 (13:11→14:55)
[2019-10-21] MEDS ORDERED: MIDAZOLAM HCL 5 MG/ML 1 ML VIAL ONE (13:11)
[2019-10-21] MEDS ORDERED: CEFAZOLIN 250 MG/ML 1 GM VIAL ONE (13:11)
[2019-10-21] MEDS ORDERED: MIDAZOLAM HCL 1 MG/ML 2ML VIAL ONE (14:55)
[2019-10-21] MEDS ORDERED: ACETAMINOPHEN 325 MG TAB PO PRN (15:30)
[2019-10-21] MEDS ORDERED: OXYCODONE HCL IR 5 MG TAB (IMMEDIATE RELEASE) PO PRN (15:30)
--- NOTE | 2019-10-21 15:30 | Electrophysiology Report ---
Date of Service October 21, 2019 Electrophysiology Procedure Electrophysiology Procedure Report Procedure performed: Implantation of dual-chamber permanent pacemaker with His bundle lead Staff tare man: Chapincito Vincent MD Indication: Tachybradycardia syndrome. The patient is a 74-year-old woman with a history of paroxysmal atrial fibrillation. She has had difficulty control ventricular rates in atrial fibrillation and episodes of significant and symptomatic bradycardia when in sinus rhythm. Therefore she is all be good candidate for permanent pacemaker due to symptomatic nonreversible AV node dysfunction. A dual-chamber device was selected and she is currently in sinus rhythm and wished to maintain AV synchrony. Procedure in detail: The patient was informed of the risks benefits and alternatives to the intended procedure and she wished to proceed. She was taken to the electrophysiology suite in a fasting state. A preoperative antibiotic had been administered. The patient was monitored electrocardiographically throughout today's procedure and conscious sedation was administered per protocol. The left upper pectoral area is prepped and draped in usual sterile fashion. This area was anesthetized using subcutaneous administration of a xylocaine solution. An incision was made at this site and carried down to the prepectoralis fascia using sharp dissection. Electrocautery was also employed for dissection as well as for hemostasis. A device pocket was fashioned tissues above the pectoralis muscle. Subsequent to this maneuver the left axillary vein was accessed using modified Seldinger technique. A 7 [place] sheath was placed over guidewire and used to access the subclavian vein. This she is used facilitate passage of the guiding catheter for placement of a His bundle lead. His bundle mapping was performed under fluoroscopic guidance. Selective his capture nonselective his capture and ventricular capture were assessed and the associated thresholds were documented prior to active fixation of the lead to the endocardial surface. Once in the appropriate position the guiding sheath was removed and the proximal portion of the lead was then sutured to the prepectoralis fascia using nonabsorbable suture. A second sheath was placed over guidewire and used to fill the passage of the right atrial lead. Adequate sensing and threshold parameters were obtained prior to active fixation of this lead to the endocardial surface. The proximal portion of lead was then sutured to the prepectoralis fascia with nonabsorbable suture. The device pocket was irrigated with antibiotic solution. The leads were then attached to the device. The device was wrapped in an antibiotic impregnated mesh. The device and leads were then placed in the pocket and pocket was closed in 3 layers of absorbable suture. Steri-Strips and sterile dressing were applied. The device was tested noninvasively prior to conclusion the procedure. The patient tolerated procedure well there no immediate complications. Equipment used: New pulse generator: [employer]. Model number: [id number] serial number [id number] Right atrial lead: [employer]. Model number: 5076 serial number [id number] Right ventricular lead: [employer]. Model number: 3830 serial number [id number] Measured data: Right atrial lead: P waves measured 5.8 mV. Pacing threshold 0.7 V at 0.5 ms the pace impedance of 637 ohms His bundle lead: R waves measure 3.8 mV. Nonselective pacing threshold was 2.5 V at 1 ms, septal pacing threshold was 1.25 V at 1 ms pacing impedance was 418 ohms Impression: Successful implantation of dual-chamber permanent pacemaker with his bundle lead [facility] Electrophysiology codes Pacing Procedure 1: Pacin Insert/Replace Pacer A & V PG Moderate Sedation Codes Moderate Sedation Codes Procedure 1: Sedation/Anesthesia: 03365 Mod Sedation by the same physician;Init15 Min Child Age 5 & Up Procedure 2: Sedation/Anesthesia: 69625 Mod Sedation by the same physician; Ea [id number] Minutes
--- NOTE | 2019-10-21 15:33 | Post Anesthesia Assessment ---
Date of Service October 21, 2019 Post Sedation Assessment Vital Signs Temp Pulse Pulse Resp BP BP Pulse Ox 10/21/19 11:23 89 L 10/21/19 10:52 36.7 C 58 L 20 105/62 94 10/21/19 07:58 71 10/21/19 07:54 36.6 C 71 20 122/73 88 L 10/21/19 07:21 59 L 18 91 10/21/19 04:18 36.6 C 71 19 119/65 90 10/21/19 01:01 78 20 92 10/20/19 23:33 36.3 C L 59 L 19 122/76 94 10/20/19 19:04 74 18 91 10/20/19 19:02 36.7 C 71 19 154/75 H 93 Recovery Score Activity: Moves 4 extremities Respiration: Deep Breath/Cough Circulation: +/-20% PreAnes Value Consciousness: Fully Awake Oxygen Saturation: > 92% On Room Air Discharge Sedation Level of Care: Fast Track Phase II Post Sedation Plan On clinical assessment, the patient appears to have tolerated the sedation without complications. Patient is recovering as anticipated. Patient will continue to be monitored by nursing and may be discharged when sedation discharge criteria are met per below protocol. Upon Completions of procedure up to 15 minutes continue every 5 minute vital signs and the P.A.R. score; then discharge to a Phase I or Fast Track to Phase II per the following guidelines: * Discharge Patient to appropriate Phase II area if PAR is 8 or greater or return to pre- procedure baseline. The post - procedure orders will be as directed. * If PAR score is less than 8 or not return to pre-procedure baseline then patient will follow Phase I monitoring till PAR is reached for Phase II. The Phase I may be done in procedure room or may call to secure a Phase I area. * If naloxone or flumazenil are used for reversal, hold in Phase I for continued monitoring from when last reversal dose was given for a minimum of 60 minutes or longer pending the nurse and/or physician discretion of patient condition before discharge to Phase II. Please call the Sedation Physician to re-evaluate and complete post-note for discharge to Phase II area. Do NOT discharge from procedure sedation or Phase 1 until post- sedation evaluation note is complete by procedure /sedation MD Sedation Discharge Instructions to be given to the patient at discharge to home.
[2019-10-21] MEDS ORDERED: WARFARIN SOD 4 MG TAB PO SCH (16:35)
--- NOTE | 2019-10-21 17:43 | Hospitalist Progress Note ---
Date of Service October 21, 2019 Assessment & Plan (1) Acute on chronic respiratory failure with hypoxia: Patient normally on 2.5-3L NC and wears CPAP every night-she is now back to her usual amount of oxygen with more dyspnea, more hypoxia and work of breathing for 48 hours prior to admission she had some steroids and "antibiotic" at home that made her feel a little better CXR with no obvious infiltrate, some mild pulmonary edema at time of admission, since resolved responded to Lasix but no further edema most likely cause of acute decompensation is COPD exacerbation, aflutter RVR causing some diastolic failure Much improved overall (2) COPD exacerbation: With some wheezing and diminished breath sounds, increased work of breathing on admission now resolved follows with Dr. Rodríguez in clinic continue Prednisone 40mg daily x5 days-last dose will be tomorrow, Zithromax 250mg daily x5 days total will taper Prednisone on discharge consider three times a week Zithromax due to exacerbations-defer to pulmonology as an outpatient Budesonide neb BID Formoterol BID Umeclidinium/Vilanterol inh daily continue Levalbuterol/Ipratropium appreciate pulmonary recommendations COPD follow up clinic referral made breathing much improved overall as above (3) Atrial flutter: in and out of atrial flutter in the ED, has a h/o afib and aflutter, on metoprolol and Coumadin Dr. Morfin follows her outpatient, has a h/o tachy alicia syndrome periods of RVR, tends to be better controlled when she is resting Dr. Vincent recommends permanent pacemaker this admission so that HR control can be more aggressive-status post pacer placement on 10/21 Appreciate cardiology management -Continue metoprolol 25mg BID -Remains on diltiazem 30mg q6, no longer on diltiazem drip and is now in sinus rhythm-consider either titrating up on beta-supa now that pacer is in place or making diltiazem long-acting -Check chest x-ray in the morning, remain on telemetry INR elevated on admission and Coumadin has been held, INR today is 2.1 -Okay to restart Coumadin 4 mg today -Repeat INR tomorrow morning -Follow BMP and replace electrolytes as needed -Follow CBC periodically while on anticoagulation -Should likely be stable for discharge to home tomorrow if pacer functioning well (4) Acute heart failure with preserved ejection fraction: echo in August 2019 showed EF of 65%, will not repeat at this time Lasix 40mg IV given at time of admission, responded well with over 1000cc out gave additional dose at 1400 on 10/16 with decent response heart failure was most likely due to atrial flutter with RVR no further Lasix as lungs are clear and heart rate is better controlled (5) Type 2 diabetes mellitus: Glucose checks are very well controlled. She is not on any medications at home Last hemoglobin A1c was 10 months ago and was 6.6% -Continue diabetic diet -Continue Novolog SS monitor for hyperglycemia on the Prednisone -Check hemoglobin A1c in the morning (6) Hypercholesterolemia: Continue atorvastatin 40 mg daily -Continue aspirin 81 mg daily (7) CAD in [place] artery: no chest pain, no ischemic changes on the monitor continue aspirin, statin, metoprolol (8) S/P coronary artery stent placement: had PA in 2013 with one stent placed no current chest pain continue aspirin (9) Obstructive sleep apnea: Continue CPAP at night, she brought in her own machine, may use consulted PT/OT to evaluate, she lives at home alone-they are recommending home with home health discussed with her the possibility of short term rehab and she is open to it, but not sure she will qualify her daughter is having surgery and will be unable to check in on her for a short period of time (10) HTN (hypertension): Blood pressures are fairly well controlled -Continue losartan 25 mg daily, metoprolol 25 mg p.o. twice daily, diltiazem 30 mg p.o. every 6 as above Admission and Anticipated Discharge Date Admission Date: October 16, 2019 Anticipated date of discharge: 10/22/19 Subjective Feeling much better. Had her pacemaker implanted today and has minimal pain at the pacer site. Breathing is still a little short with exertion but overall improved. Coughing up some small amounts of sputum. Denies chest pain or abdominal pain, no nausea. Telemetry with atrial fibrillation which converted to normal sinus rhythm with PVCs yesterday evening, rates have been in sinus in the 60s to 70s I discussed her case with print and pattern designer today. He said it was okay to restart her Coumadin after the procedure this evening Review of Systems Review of Systems: All systems reviewed & are unremarkable except as noted in HPI & below Physical Exam Constitutional: WD/WN, vitals as above + obese Eyes: + anicteric sclerae ENMT: external ear and nose normal, oropharynx normal Neck: trachea midline, no thyromegaly Respiratory: normal respiratory effort Auscultation: + diminished lung sounds (Throughout) and + wheezes (Mild bilateral in upper airways); no crackles and no rhonchi Cardiovascular: RRR, no murmur, no edema Chest (Breasts): Chest: + pacemaker (Left anterior chest with dressing in place over pacer clean dry and intact) Gastrointestinal (Abdomen): normal bowel sounds, soft, nontender, no hepatosplenomegaly Musculoskeletal: Extremities: extremities normal to inspection; no cyanosis and no clubbing Skin: no rashes, warm and dry Neurologic: moves all extremities and awake; no focal motor deficits Psychiatric: A+Ox3, euthymic affect Lymphatic: no lymphedema Results & Data ([facility]) Vital Signs (Past 12 Hours) Vital Signs Temp Pulse Pulse Resp BP BP Pulse Ox 10/21/19 16:45 36.6 C 75 68 19 110/64 91 10/21/19 16:07 36.5 C 67 20 126/71 91 10/21/19 15:45 71 20 131/60 90 10/21/19 15:35 71 20 133/72 90 10/21/19 11:23 89 L 10/21/19 10:52 36.7 C 58 L 20 105/62 94 10/21/19 07:58 71 10/21/19 07:54 36.6 C 71 20 122/73 88 L 10/21/19 07:21 59 L 18 91 Laboratory Results 10/21/19 10/21/19 10/21/19 Range/Units 20:09 16:25 11:57 PT (9.0-12.0) Seconds INR (0.9-1.1) Sodium (136-145) mmol/L Potassium (3.5-5.1) mmol/L Chloride (98-107) mmol/L Carbon Dioxide (21-32) mmol/L Anion Gap (3-11) BUN (7-18) mg/dl Creatinine (0.6-1.2) mg/dl Est Cr Clr Drug Dosing ml/min Est GFR ( Amer) Est GFR (Non-Af Amer) BUN/Creatinine Ratio (10-20) Glucose (70-99) mg/dl POC Glucose 140 H 167 H 103 H (70-99) mg/dl Calcium (8.5-10.1) mg/dl 10/21/19 10/21/19 Range/Units 07:16 07:16 PT 20.0 H (9.0-12.0) Seconds INR 2.1 H (0.9-1.1) Sodium 140 (136-145) mmol/L Potassium 3.7 (3.5-5.1) mmol/L Chloride 105 (98-107) mmol/L Carbon Dioxide 31 (21-32) mmol/L Anion Gap 4.0 (3-11) BUN 25 H (7-18) mg/dl Creatinine 0.79 (0.6-1.2) mg/dl Est Cr Clr Drug Dosing 76.5 ml/min Est GFR ( Amer) 86.1 Est GFR (Non-Af Amer) 74.3 BUN/Creatinine Ratio 30.9 H (10-20) Glucose 88 (70-99) mg/dl POC Glucose (70-99) mg/dl Calcium 9.2 (8.5-10.1) mg/dl PG Care Time/CCT Total # of Minutes Spent Total Time Spent with Patient: Total time spent is greater than 50% in coordination of care (as documented) at patient's floor/unit and/or counseling patient: Coding Level of Care Code 43867 Subseq Hosp Care Lvl 3 Diagnoses Acute on chronic respiratory failure with hypoxia J96.21 COPD exacerbation J44.1 Atrial flutter I48.92 Atrial flutter type: unspecified Acute heart failure with preserved ejection fraction I50.31 Type 2 diabetes mellitus E11.9 Hypercholesterolemia E78.00 CAD in [place] artery I25.10 S/P coronary artery stent placement Z95.5 Obstructive sleep apnea G47.33 HTN (hypertension) I10 (1) Atrial flutter Atrial flutter type: unspecified Qualified Code(s): I48.92 - Unspecified atrial flutter
[2019-10-21] MEDS: ATORVASTATIN 40 MG TAB PO SCH (20:23)
[2019-10-22] MEDS: LEVALBUTEROL 1.25MG/0.5ML NEB INH SCH ×3 (01:09→13:53)
[2019-10-22] MEDS: IPRATROPIUM BROMIDE NEB SOLN 0.02% 2.5 ML VIAL INH SCH ×3 (01:09→13:52)
[2019-10-22] MEDS: dilTIAZem HCL 30 MG TAB PO SCH ×2 (03:44→08:08)
--- NOTE | 2019-10-22 06:51 | XRay Report ---
XR chest 2V PA/lateral CLINICAL HISTORY: EXACT TIME ORDERED Evaluate for pneumothorax and l COMPARISON STUDY: 10/16/2019 FINDINGS: Interval placement of a bipolar cardiac pacemaker. Leads are in good position. No evidence for pneumothorax. IMPRESSION: Cardiac pacemaker in good position. No evidence for pneumothorax. ACT 112: Negative or not required by law. The above report was generated using voice recognition software. It may contain grammatical, syntax or spelling errors. Electronically signed by: Paulo Castillo M.D. 10/22/2019 6:50 AM
[2019-10-22] MEDS: BUDESONIDE 0.5 MG/2 ML VIAL (PULMICORT) NEB SCH (07:16)
[2019-10-22] MEDS: FORMOTEROL 20 MCG/2 ML VIAL NEB SCH (07:16)
[2019-10-22 07:19] LABS: Basophils # (auto) 0.01 K/uL (0-0.2); Basophils % (auto) 0.1 %; Eosinophils # (auto) 0.06 K/uL (0-0.5); Eosinophils % (auto) 0.5 %; Hematocrit (blood only) 42.3 % (37-47); Hemoglobin 13.7 g/dL (12.0-16.0); Immature Granulocytes # (auto) 0.09 K/uL (0.00-0.02); Immature Granulocytes % (auto) 0.7 %; Lymphocytes # (auto) 2.56 K/uL (1.2-3.4); Lymphocytes % (auto) 20.2 %; Mean Corpuscular Hemoglobin 28.5 pg (25-34); Mean Corpuscular Hgb Conc 32.4 g/dL (32-36); Mean Corpuscular Volume 88.1 fL (80-100); Mean Platelet Volume 10.6 fL (7.4-10.4); Monocytes # (auto) 1.01 K/uL (0.11-0.59); Neutrophils # (auto) 8.92 K/uL (1.4-6.5); Neutrophils % (auto) 70.5 %; Platelet Count 219 K/uL (130-400); RDW Coefficient of Variation 14.5 % (11.5-14.5); White Blood Count 12.65 K/uL (4.8-10.8)
[2019-10-22 07:32] LABS: INR 1.8 (0.9-1.1); Prothrombin Time 17.6 Seconds (9.0-12.0)
[2019-10-22 07:46] LABS: BUN Creatinine Ratio 23.9 (10-20); Calcium 9.2 mg/dl (8.5-10.1); Creatinine Clr Calc Pharmacy 68.7 ml/min; Est GFR (African American) 75.5; Est GFR (Non-African American) 65.2; Magnesium 2.4 mg/dl (1.8-2.4)
[2019-10-22] MEDS: predniSONE 20 MG TAB PO SCH (08:08)
[2019-10-22] MEDS: AZITHROMYCIN 250 MG TAB PO SCH (08:08)
[2019-10-22] MEDS: guaiFENesin 600 MG TABCR PO SCH (08:08)
[2019-10-22] MEDS: METOPROLOL TARTRATE 25 MG TAB PO SCH (08:09)
[2019-10-22] MEDS: PANTOprazole 40 MG TAB PO SCH (08:09)
[2019-10-22] MEDS: UMECLIDINIUM/VILANTEROL 62.5/25MCG 7 PUFFS/INHALER INH SCH (08:09)
[2019-10-22] MEDS: ASPIRIN 81 MG ECTAB PO SCH (08:09)
[2019-10-22] MEDS: LOSARTAN POTASSIUM 25 MG TAB PO SCH (08:10)
[2019-10-22] MEDS: CANNABIDIOL PO SCH (08:10)
[2019-10-22] MEDS: INSULIN ASPART 100 UNITS/ML 3 ML PEN SC SCH ×2 (08:11→11:55)
--- NOTE | 2019-10-22 09:01 | Cardiology Progress Note ---
Date of Service October 22, 2019 Assessment & Plan (1) Paroxysmal atrial fibrillation: (2) Acute on chronic respiratory failure with hypoxia: (3) Carotid artery stenosis: (4) CAD in [place] artery: ASSESSMENT/PLAN: 1. Paroxysmal atrial fibrillation: Back in sinus rhythm. I would agree with discharge on both beta blockade and calcium channel supa. This can be titrated in the outpatient setting for any additional high ventricular rates. No concerns about bradycardia given device implant yesterday. Continue warfarin indefinitely. 2. Acute on chronic respiratory failure with hypoxia: Improved 3. CAD with NSTEMI (10/20/14) and PCI: No angina. Continue aspirin 81 mg da sarah indefinitely. Continue beta supa and high intensity statin therapy. 4. Hypertension: Blood pressure acceptable. Continue current regimen. 5. Carotid artery stenosis: There has been progression noted ICA stenosis. Recommend vascular follow-up as an outpatient. Stable for discharge today from a cardiovascular standpoint. Additional medication titration can be performed in the outpatient setting. As with all device implant patient she should refrain from lifting left arm above the shoulder or behind the neck for period of 6 weeks. She should keep the wound dry in the Steri-Strips intact until follow-up next week. I will contact the clinic and arrange for a nurse visit next week. Subjective This morning the patient is feeling well. She reports overall improvement in her breathing. More energy today. Minimal discomfort at the device implant site. Review of Systems 2 Review of Systems: Per HPI Physical Exam Physical Exam: Evaluation the device implant site reveals some mild ecchymosis and dried blood. No active bleeding. No significant hematoma. Results & Data Vital Signs (Past 12 Hours) Vital Signs Temp Pulse Pulse Resp BP Pulse Ox 10/22/19 08:00 36.2 C L 67 24 129/87 92 10/22/19 07:18 66 16 93 10/22/19 03:49 36.7 C 60 20 142/84 H 93 10/22/19 01:11 61 18 90 10/22/19 00:11 36.7 C 60 19 111/70 94 Laboratory Results Abnormal Lab Results 10/21/19 10/21/19 10/21/19 11:57 16:25 20:09 WBC RBC Hgb Hct MCV MCH MCHC RDW Std Deviation RDW Coeff of Mark Plt Count MPV Immature Gran % (Auto) Neut % (Auto) Lymph % (Auto) [place] % (Auto) Eos % (Auto) Baso % (Auto) Immature Gran # (Auto) Neut # (Auto) Lymph # (Auto) [place] # (Auto) Eos # (Auto) Baso # (Auto) PT INR Sodium Potassium Chloride Carbon Dioxide Anion Gap BUN Creatinine Est Cr Clr Drug Dosing Est GFR ( Amer) Est GFR (Non-Af Amer) BUN/Creatinine Ratio Glucose POC Glucose 103 H 167 H 140 H Calcium Magnesium 10/22/19 10/22/19 10/22/19 07:04 07:04 07:04 WBC 12.65 H RBC 4.80 Hgb 13.7 Hct 42.3 MCV 88.1 MCH 28.5 MCHC 32.4 RDW Std Deviation 47.0 H RDW Coeff of Mark 14.5 Plt Count 219 MPV 10.6 H Immature Gran % (Auto) 0.7 Neut % (Auto) 70.5 Lymph % (Auto) 20.2 [place] % (Auto) 8.0 Eos % (Auto) 0.5 Baso % (Auto) 0.1 Immature Gran # (Auto) 0.09 H Neut # (Auto) 8.92 H Lymph # (Auto) 2.56 [place] # (Auto) 1.01 H Eos # (Auto) 0.06 Baso # (Auto) 0.01 PT 17.6 H INR 1.8 H Sodium 139 Potassium 4.0 Chloride 103 Carbon Dioxide 32 Anion Gap 4.0 BUN 21 H Creatinine 0.88 Est Cr Clr Drug Dosing 68.7 Est GFR ( Amer) 75.5 Est GFR (Non-Af Amer) 65.2 BUN/Creatinine Ratio 23.9 H Glucose 88 POC Glucose Calcium 9.2 Magnesium 2.4 10/22/19 07:31 WBC RBC Hgb Hct MCV MCH MCHC RDW Std Deviation RDW Coeff of Mark Plt Count MPV Immature Gran % (Auto) Neut % (Auto) Lymph % (Auto) [place] % (Auto) Eos % (Auto) Baso % (Auto) Immature Gran # (Auto) Neut # (Auto) Lymph # (Auto) [place] # (Auto) Eos # (Auto) Baso # (Auto) PT INR Sodium Potassium Chloride Carbon Dioxide Anion Gap BUN Creatinine Est Cr Clr Drug Dosing Est GFR ( Amer) Est GFR (Non-Af Amer) BUN/Creatinine Ratio Glucose POC Glucose 84 Calcium Magnesium Diagnostic Findings I reviewed the source images of her chest x-ray obtained today. Good lead position. No pneumothorax. A complete device interrogation was performed revealing both septal capture on the ventricular lead and non selective capture on the ventricular lead with reasonable thresholds on both the atrial and ventricular leads. Normal device function.
[2019-10-22] MEDS ORDERED: dilTIAZem ER 120 MG CAPCR PO SCH (12:00)
--- NOTE | 2019-10-22 12:50 | Discharge Summary ---
Date of Service October 22, 2019 Admission HPI Per Admitting Provider 74 yo female with long history of COPD on Symbicort, Spiriva and nebulizers at home as well as a history of paroxysmal atrial fibrillation/flutter who presents to the ED this morning due to worsening shortness of breath. She reports that her symptoms started two days ago, she took some antibiotics and steroids that she had at home from prior prescription. She says that the steroids seemed to help her. She did not have a cough, just noticed that she was more short of breath. No fever or chills. She did not see any swelling in her legs. She does not routinely take her weight so unsure if she gained weight. Her breathing started to get worse so she came to the ED this morning. She was given a nebulizer in the ambulance and placed on BIPAP. She was breathing more comfortably on the BIPAP. She was in atrial flutter on the monitor but converted to NSR after coughing. CXR showed bilateral pulmonary edema. Her BNP was slightly elevated. She was given Lasix 40mg IV in the ED and started to diurese. Discussed with her daughter, she has a history of non-compliance and self medicating. Principal Diagnosis COPD exacerbation, acute on chronic respiratory failure with hypoxia, Tachy- alicia syndrome s/p Permanent pacemaker insertion Discharge Exam Constitutional WD/WN, vitals as above + obese Eyes + anicteric sclerae Neck trachea midline, no thyromegaly Respiratory normal respiratory effort Auscultation: + diminished lung sounds (Throughout); no crackles, no rhonchi and no wheezes Cardiovascular RRR, no murmur, no edema Chest (Breasts) Chest: + pacemaker (Left anterior chest with dressing in place over pacer clean dry and intact) Gastrointestinal (Abdomen) normal bowel sounds, soft, nontender, no hepatosplenomegaly Musculoskeletal Extremities: extremities normal to inspection; no cyanosis and no clubbing Skin no rashes, warm and dry Neurologic moves all extremities and awake; no focal motor deficits Psychiatric A+Ox3, euthymic affect Lymphatic no lymphedema Discharge Data Allergies Allergy/AdvReac Type Severity Reaction Status Date / Time cephalexin AdvReac Mild PT BECOMES Verified 10/16/19 05:33 ANXIOUS lisinopril AdvReac Mild COUGH Verified 10/16/19 05:33 Consultations 10/16/19 05:42 ED Decision to Admit Stat 10/16/19 08:53 Consult Case Management - Discharge Planning Routine 10/16/19 13:36 Consult Cardiology Routine 10/17/19 09:29 Consult Pulmonology Routine 10/17/19 12:13 [facility] COPD/Pnx Program Referral Routine Procedures Performed Operation Date: 10/21/19 14:00 Actual Procedures p Pacer with A/V Leads (Dual) - Gokul Vincent MD s Bundle of his Recording - Gokul Vincent MD Ordered Studies 10/21/19 07:00 EP Lab Images for PACS ONCE CXR Hospital Course (1) Acute on chronic respiratory failure with hypoxia: Patient normally on 2.5-3L NC and wears CPAP every night-she is now back to her usual amount of oxygen with more dyspnea, more hypoxia and work of breathing for 48 hours prior to admission she had some steroids and "antibiotic" at home that made her feel a little better CXR with no obvious infiltrate, some mild pulmonary edema at time of admission, since resolved responded to Lasix but no further edema most likely cause of acute decompensation is COPD exacerbation, aflutter RVR causing some diastolic failure Much improved overall (2) COPD exacerbation: With some wheezing and diminished breath sounds, increased work of breathing on admission now resolved follows with Dr. Rodríguez in clinic continue Prednisone taper-received 40mg daily x 5 days here and will go home on 20mg daily x 3 days then 10mg daily x 3 days then STOP -completed a course of Zithromax x 5 days -consider three times a week Zithromax due to exacerbations-defer to pulmonology as an outpatient received Budesonide neb BID, Formoterol BID, and Umeclidinium/Vilanterol inh daily -revert back to home Spiriva, Symbicort, and Proair prn on discharge appreciate pulmonary recommendations COPD follow up clinic referral made breathing much improved overall as above (3) Atrial flutter: in and out of atrial flutter in the ED, has a h/o afib and aflutter, on metoprolol and Coumadin Dr. Morfin follows her outpatient, has a h/o tachy alicia syndrome Had periods of RVR, tends to be better controlled when she is resting Dr. Vincent recommends permanent pacemaker this admission so that HR control can be more aggressive-status post pacer placement on 10/21 CXR the next day w/o PTX, stable for discharge, pacer functioning well Appreciate cardiology management -Continue metoprolol 25mg BID -started Diltiazem 120mg XR once daily INR elevated on admission and Coumadin has been held, INR today is now down to 1.8 after being held for 3 days - restarted Coumadin 4 mg on 10/21 and should take again on 10/22 -then revert back to home dosing of coumadin 4mg MWF and 3mg other days, check INR at home on -Follow CBC periodically while on anticoagulation (4) Acute heart failure with preserved ejection fraction: echo in August 2019 showed EF of 65%, will not repeat at this time Lasix 40mg IV given at time of admission, responded well with over 1000cc out gave additional dose at 1400 on 10/16 with decent response heart failure was most likely due to atrial flutter with RVR no further Lasix as lungs are clear and heart rate is better controlled (5) Type 2 diabetes mellitus: Glucose checks are very well controlled. She is not on any medications at home Last hemoglobin A1c was 10 months ago and was 6.6% -Continue diabetic diet -received Novolog SS here with prednisone-induced hyperglycemia f/u as outpt (6) Hypercholesterolemia: Continue atorvastatin 40 mg daily -Continue aspirin 81 mg daily (7) CAD in [place] artery: no chest pain, no ischemic changes on the monitor continue aspirin, statin, metoprolol (8) S/P coronary artery stent placement: had [place] in 2013 with one stent placed no current chest pain continue aspirin (9) Obstructive sleep apnea: Continue CPAP at night (10) HTN (hypertension): Blood pressures are fairly well controlled -Continue losartan 25 mg daily which was a reduced dose from home as was started on diltiazem -continue metoprolol 25 mg p.o. twice daily -started diltiazem 120mg daily here as above Dispo-stable for dc to home today with home health Total Time Total Time Spent Total Time Spent (In Minutes): 35 min Total Time Includes: Examination of the Patient, Discharge Planning, Medication Reconciliation and Communication With Other Providers (discussed with Cardiology) Discharge Plan Discharge Items Patient Disposition: Home - Home Health Services Reason For Visit: ACUTE ON CHRONIC HYPOXIC RESPIRATORY FAILURE Discharge Diagnosis: Acute on chronic hypoxic respiratory failure, COPD exacerbation, Tachy-alicia syndrome now status post permanent pacemaker placement Condition on Discharge: Good Activity: As commented below Lifting Comment: No raising left arm above shoulder x 6 weeks Bathing: Keep incision dry Bathing Comment: You can remove dressing tomorrow Non-emergency contact: Primary Care Provider and [facility] Call non-emergency contact if: you have any medication questions, your symptoms worsen, your temperature is above 101, your wound has increased redness, your wound has increased drainage and your wound pain has increased Follow-up/Referrals: Gokul Vincent MD [Physician] - (Follow up within 1 week ) Magda Olivo CRNP [Nurse Practitioner] - 10/25/19 3:00 pm (Please, follow up at [facility] Pulmonology Office with Magda BALDWIN on MondayOctober 25 at 3:00 pm. *The office is located in [address] of [facility], next to this hospital. If you need to change this appointment, call the office at [phone].) Dakotah Holliday, [Primary Care Provider] - Diet: Carb Consistent or DM2 and Heart Healthy Addtl Attending Provider Instructions: Finish out the course of prednisone as prescribed. You have already completed the course of antibiotics for bronchitis. You had a pacemaker implanted and should follow up with the [facility] for this. A new medication was added to slow your heart rate down-this is called diltiazem and is to be taken once a day in the morning. Your INR was only 1.8 on the day of discharge and you should take 4mg today (Monday) and then revert back to your usual home dosing of 4mg on Mon, 3mg the other days. Please check your INR at home on with your machine. Follow up with the Pulmonology provider and your PCP within 1-2 weeks. Pending Studies at Discharge: No Stand-Alone Forms: My [facility] Code71, Smoking Cessation Medications and DC Order Prescriptions: New acetaminophen [Mapap (acetaminophen)] 325 mg Tablet 650 mg PO Q4H PRN (Reason: pain) Qty: 30 RF: 0 diltiazem HCl [Taztia XT] 120 mg Capsule,Extended Release 24 Hr 120 mg PO QAM Qty: 30 RF: 0 losartan 25 mg Tablet 25 mg PO QAM Qty: 30 RF: 0 prednisone 20 mg Tablet 20 mg PO QAM Qty: 5 RF: 0 guaifenesin [Mucinex] 600 mg Tablet Extended Release 12hr 600 mg PO Q12 Qty: 30 RF: 0 Continued Symbicort 160-4.5 mcg/actuation HFA aerosol inhaler 2 puffs INH BID Qty: 6 RF: 2 (DME) OneTouch Ultra Blue Test Strip strip See Dose Instructions .ROUTE .MEDSUPPLY Qty: 100 RF: 3 (DME) lancets [OneTouch Delica Lancets] 30 gauge misc See Dose Instructions .ROUTE .MEDSUPPLY Qty: 100 RF: 3 atorvastatin 40 mg tablet 40 mg PO HS Qty: 90 RF: 3 ipratropium-albuterol 0.5 mg-3 mg(2.5 mg base)/3 mL solution for nebulization 3 ml INHALATION QID Qty: 360 RF: 5 metoprolol tartrate 25 mg tablet 25 mg PO BID Qty: 180 RF: 3 (DME) Oxygen Home Liters Per Minute See Dose Instructions .ROUTE .MEDSUPPLY Qty: 1 RF: 0 (DME) CPAP Machine Misc See Dose Instructions .ROUTE .MEDSUPPLY Qty: 1 RF: 0 (DME) OneTouch Ultra Blue Test Strip strip See Dose Instructions .ROUTE .MEDSUPPLY Qty: 10 RF: 0 (DME) lancets [OneTouch Delica Lancets] 33 gauge misc See Dose Instructions .ROUTE .MEDSUPPLY Qty: 100 RF: 0 calcium carbonate [Calcium 600] 600 mg calcium (1,500 mg) tablet 600 mg PO DAILY RF: 0 albuterol sulfate [ProAir HFA] 90 mcg/actuation HFA aerosol inhaler 2 puffs INH Q6H PRN (Reason: shortness of breath or wheezing) Qty: 54 RF: 3 warfarin 1 mg tablet 1 mg PO .COMPLEX Qty: 360 RF: 3 omeprazole 40 mg capsule,delayed release(DR/EC) 40 mg PO QAM RF: 0 Spiriva with HandiHaler 18 mcg capsule, w/inhalation device 1 cap INH QAM RF: 0 aspirin 81 mg Tablet,Delayed Release (Dr/Ec) 81 mg PO QAM RF: 0 coenzyme Q10 [Co Q-10] 100 mg Capsule 100 mg PO QAM RF: 0 omega 8-vyc-ygr-fish oil [Fish Oil] 1,000 mg (120 mg-180 mg) Capsule 1 cap PO QAM RF: 0 cannabidiol 100 mg/mL Solution 15 mg PO QAM RF: 0 Senior Tabs 0.4-300-250 mg-mcg-mcg Tablet 1 tab PO DAILY RF: 0 cholecalciferol (vitamin D3) [Vitamin D3] 25 mcg (1,000 unit) Tablet 1,000 unit PO 5XWK RF: 0 Discontinued losartan 50 mg tablet 50 mg PO QAM Qty: 90 RF: 3 Discharge Orders: Discharge Order (Routine); Ordered 10/22/19 Ordered By: Kassandra Ellis Admission Data Admit Date/Time: 10/16/19 07:47 Attending Provider: Kassandra Ellis Admit Provider: Ton Boggs Primary Care Provider: Dakotah Holliday Other Providers: Ton Boggs ; Mani Morfin ; Edwin Malone ; Magda Olivo ; [facility] ; [facility], ; [facility] ; [facility] Coding Level of Care Code D/C Day Management >30 mins Diagnoses Acute on chronic respiratory failure with hypoxia J96.21 COPD exacerbation J44.1 Atrial flutter I48.92 Atrial flutter type: unspecified Acute heart failure with preserved ejection fraction I50.31 Type 2 diabetes mellitus E11.9 Hypercholesterolemia E78.00 CAD in [place] artery I25.10 S/P coronary artery stent placement Z95.5 Obstructive sleep apnea G47.33 HTN (hypertension) I10
--- NOTE | 2019-10-22 14:38 | Electrocardiogram Report ---
Test Reason : Blood Pressure : / mmHG Vent. Rate : 060 BPM Atrial Rate : 060 BPM P-R Int : 154 ms QRS Dur : 074 ms QT Int : 408 ms P-R-T Axes : 060 058 065 degrees QTc Int : 408 ms Normal sinus rhythm Possible Left atrial enlargement Borderline ECG When compared with ECG of 18-OCT-2019 06:49, Sinus rhythm has replaced Atrial fibrillation Vent. rate has decreased BY 58 BPM T wave amplitude has increased in Anterior leads Confirmed by Chap[place]ito Vincent ([id number]) on 10/22/2019 2:38:19 PM Referred By: REFERRED SELF Confirmed By:Mike Vincent
--- NOTE | 2019-10-22 14:51 | Electrocardiogram Report ---
Test Reason : Blood Pressure : / mmHG Vent. Rate : 060 BPM Atrial Rate : 060 BPM P-R Int : 158 ms QRS Dur : 078 ms QT Int : 416 ms P-R-T Axes : 060 054 052 degrees QTc Int : 416 ms Atrial-paced rhythm Abnormal ECG When compared with ECG of 21-OCT-2019 22:41, (unconfirmed) Electronic atrial pacemaker has replaced Sinus rhythm Confirmed by [place] Vincent ([id number]) on 10/22/2019 2:51:02 PM Referred By: REFERRED SELF Confirmed By:Mike Vincent
--- NOTE | 2019-10-23 14:49 | Electrocardiogram Report ---
Test Reason : Blood Pressure : / mmHG Vent. Rate : 089 BPM Atrial Rate : 089 BPM P-R Int : 000 ms QRS Dur : 102 ms QT Int : 358 ms P-R-T Axes : 000 034 133 degrees QTc Int : 435 ms Poor data quality, interpretation may be adversely affected Ventricular-paced rhythm Abnormal ECG When compared with ECG of 22-OCT-2019 07:56, (unconfirmed) Electronic ventricular pacemaker has replaced Sinus rhythm Confirmed by Chapincito Vincent ([id number]) on 10/23/2019 2:49:07 PM Referred By: REFERRED SELF Confirmed By:Mike Vincent
== END 2019-10-22 14:18 | disposition home health service (06) | DRG 242 ==
LOC: ED 03:45 → 2S 07:47 → SUATTDRO 07:47 → 2S 08:16

== ENCOUNTER 2020-12-17 16:27 | Observation (INO) ==
[2020-12-17 17:11] LABS: Basophils # (auto) 0.04 K/uL (0-0.2); Basophils % (auto) 0.3 %; Eosinophils # (auto) 0.13 K/uL (0-0.5); Eosinophils % (auto) 0.9 %; Hematocrit (blood only) 45.7 % (37-47); Hemoglobin 15.1 g/dL (12.0-16.0); Immature Granulocytes # (auto) 0.06 K/uL (0.00-0.02); Immature Granulocytes % (auto) 0.4 %; Lymphocytes # (auto) 1.92 K/uL (1.2-3.4); Lymphocytes % (auto) 12.6 %; Mean Corpuscular Hemoglobin 29.2 pg (25-34); Mean Corpuscular Volume 88.4 fL (80-100); Mean Platelet Volume 10.3 fL (7.4-10.4); Monocytes # (auto) 1.24 K/uL (0.11-0.59); Monocytes % (auto) 8.1 %; Neutrophils # (auto) 11.84 K/uL (1.4-6.5); Neutrophils % (auto) 77.7 %; Platelet Count 260 K/uL (130-400); RDW Coefficient of Variation 14.7 % (11.5-14.5); RDW Standard Deviation 47.3 fL (36.4-46.3); Red Blood Count 5.17 M/uL (4.2-5.4); White Blood Count 15.23 K/uL (4.8-10.8)
--- NOTE | 2020-12-17 17:16 | XRay Report ---
SINGLE VIEW CHEST CLINICAL HISTORY: Atypical chest pain. Dyspnea. FINDINGS: An AP, portable, upright chest radiograph is compared to study dated 11/20/2020. A 2-lead ca rdiac pacemaker is unchanged in position and partially obscures the left mid chest. The heart is enla rged noting atherosclerotic calcification of the thoracic aorta. The pulmonary vasculature is noncong ested. Emphysema and chronic interstitial thickening is similar to previous. There is bibasilar scarr ing/atelectasis. No airspace consolidation or large pleural effusion is identified. No pneumothorax i s seen. The skeletal structures are osteopenic. The bony thorax is grossly intact. IMPRESSION: 1. Cardiomegaly and cardiac pacemaker. There is no radiographic evidence of congestive failure. 2. Emphysema. 3. No airspace consolidation or large pleural effusion is identified. ACT 112: Negative or not required by law. Electronically signed by: Jason Munoz M.D. 12/17/2020 5:15 PM
[2020-12-17 17:34] LABS: Alanine Aminotransferase 54 U/L (12-78); Albumin Level 3.4 gm/dl (3.4-5.0); Aspartate Aminotransferase 23 U/L (15-37); BUN Creatinine Ratio 19.9 (10-20); Blood Urea Nitrogen 22 mg/dl (7-18); Calcium 9.1 mg/dl (8.5-10.1); Carbon Dioxide 30 mmol/L (21-32); Chloride 107 mmol/L (98-107); Est GFR (Non-African American) 48.4; Glucose 121 mg/dl (70-99); Potassium 4.5 mmol/L (3.5-5.1); Sodium 140 mmol/L (136-145)
[2020-12-17 17:39] LABS: Albumin Globulin Ratio 0.8 (0.9-2); Alkaline Phosphatase 74 U/L (45-117); Bilirubin,Total 0.4 mg/dl (0.2-1); Globulin 4.3 gm/dl (2.5-4.0); Total Protein 7.7 gm/dl (6.4-8.2); Troponin I < 0.015 ng/ml (0-0.045)
--- NOTE | 2020-12-17 17:51 | Emergency Department Note ---
Impression & Plan Retrosternal chest pain ED Provider Note INFORMANT: Patient ED PROVIDER(S): Rm Rolle MD CHIEF COMPLAINT: Chest pain PLAN: Disposition: Admitted Condition: Good Outpatient prescription management: none Referral: None MEDICAL DECISION MAKING: Patient presented to emergency department because of chest pain. I have a saw her she was actually pain-free. Nitropaste was applied. Her ECG did show A. fib with borderline RVR. No acute ischemic changes noted. Her CBC and chemistr y panel were unremarkable except for mild leukocytosis. The patient was recently started on prednisone. She has not had any infectious symptoms I suspect the leukocytosis is from the prednisone. She had a negative troponin. Patient's INR slightly subtherapeutic. She was just supratherapeutic and has been adjusting her Coumadin. Given her extensive cardiac history the patient will need further management in the hospital. Consultation was made with Dr. Cyr of internal medicine. She was evaluated by the team in the department and admitted. Triage Nursing notes reviewed and agree them. Vital Signs: reviewed and remarkable for hypertension Differential diagnosis: Cardiac ischemia, aortic dissection, pulmonary embolism, pneumothorax, pneumonia, pericarditis, myocarditis, esophageal rupture, GERD, cholecystitis, pancreatitis, musculoskeletal, as well as other pathologies. Diagnostics interpreted by me: ECG: Twelve-lead ECG reveals atrial fibrillation with rapid ventricular sponsor 104 bpm. Low voltage QRS. No ST elevation or depression. No PVCs. Normal axis. Cardiac Monitoring: Cardiac monitoring ordered by me: The patient was placed on continuous cardiac monitoring and observed. It revealed atrial fibrillation at 93 bpm. Imaging studies: Chest x-ray. Findings: A chest x-ray was performed and revealed no pneumothorax, effusion, infiltrate, pulmonary edema, free air under the diaphragm, or wide mediastinum. Impression: No acute disease. HPI: The patient is a 75 year old female who presents to the Emergency Room with complaints of retrosternal chest pain. This started this morning and is currently resolved. The patient also notes the following associated symptoms, o ne episode of vomiting. The patient has took no medication relieving factors. Current pain is rated as 0/10. Pain early today was 5/10. She has had stent and pacemaker in past. Wears 2L NC. Pt denies LOC, headache, fevers, chills, diaphoresis, visual changes, neck pain, abdominal pain, back pain, melena, hematochezia, urinary symptoms, numbness, weakness, lymphadenopathy, rash, or other complaints. ROS: See above HPI for pertinent positives & negatives. A total of 10 systems reviewed and were otherwise negative. PAST MEDICAL HISTORY:See Below , Afib, anticoagulated PAST SURGICAL HISTORY:See Below, stented coronary FAMILY HISTORY:See Below SOCIAL HISTORY:See Below, Quit 1.5 yrs ago tobacco HOME MEDICATIONS:See Below ALLERGIES:See Below VITALS:See Below PHYSICAL EXAMINATION: GENERAL: Awake, alert, well-appearing, in no distress HENT: Normocephalic, atraumatic. Oropharynx unremarkable. EYES: Normal conjunctiva. Sclera non-icteric. NECK: Inspection normal. Non-tender. Supple. No nuchal rigidity. FROM. No masses. RESPIRATORY: Clear to auscultation. No wheezes. No rales. Normal respiratory effort. CARDIAC: Borderline tachycardic rate. Irregular rhythm. No murmurs. No rubs. Extremities warm and well perfused. Pulses equal. No JVD. GI: Soft, non-distended. No tenderness to palpation. No rebound or guarding. No masses. RECTAL: Deferred. MUSCULOSKELETAL: Atraumatic. Chest examination reveals no tenderness. The back is symmetrical on inspection without obvious abnormality. There is no CVA tenderness to palpation. No joint edema. LOWER EXTREMITIES: Calves are equal size bilaterally and non-tender. No edema. No discoloration. NEURO: Normal sensorium. No sensory or motor deficits noted. SKIN: No rash or jaundice noted. 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 Morfin History of colonoscopy History of heart artery stent x1 09/2014 History of tooth extraction S/P placement of cardiac pacemaker Status post laser cataract surgery of both eyes had procedure done after cataract removal Status post trigger finger release left hand thumb Family History Grandmother (Maternal) Diabetes Mother Colorectal cancer Father Alzheimer disease Hypertension Sister Hypertension Aunt Breast cancer Other No family history of adverse response to anesthesia Denies family history of Ovarian cancer Prostate cancer Myocardial infarction Social History Smoking Status: Former smoker Tobacco Type: Cigarettes Age Started Using Tobacco: 16; Age Quit Using Tobacco: 74; packs per day: 1; Cigarettes Per Day: 1 pack per day until last few years 1 pack per week; Smoking End Date: July 2019, smoked 50 years; Second Hand Exposure: No; Hx Alcohol Use: No Hx Substance Use: No Preferred Language: Brazilian Communication Ability: Effective Visual Impairment: No Limitations Hearing Ability: Normal Pamphlet Distributor Required: No Beliefs That Will Affect Care: None marital status: / Current Living Situation: Alone current occupational status: retired How many Children do You have: 1 Feels Safe at Home: Yes Safety Concerns: Feels Safe At This Time Childhood Exposure to Second-Hand Smoke: Yes caffeine: Yes Dental Care, Regularly: No Physical Activity Frequency: Does not Exercise Seatbelt Use: always Sunscreen Use: No Assistive Devices: Cane, CPAP, Glasses, Oxygen - Continuous and Walker Allergies Allergies Allergy/AdvReac Type Severity Reaction Status Date / Time fluticasone furoate Allergy Severe Swelling Verified 12/17/20 18:13 [From Trelegy Ellipta] of Lip/Tongue/Throat umeclidinium Allergy Severe Swelling Verified 12/17/20 18:13 [From Trelegy Ellipta] of Lip/Tongue/Throat vilanterol Allergy Severe Swelling Verified 12/17/20 18:13 [From Trelegy Ellipta] of Lip/Tongue/Throat cephalexin AdvReac Mild PT BECOMES Verified 12/17/20 18:13 ANXIOUS lisinopril AdvReac Mild COUGH Verified 12/17/20 18:13 Home Meds Home Medications Medication Instructions Recorded Confirmed aspirin 81 mg PO QAM 03/15/19 12/17/20 omega 0-vci-blo-fish oil [Fish Oil] 1 cap PO QAM 03/15/19 12/17/20 lancets 33 gauge #100 ea 03/30/19 12/09/20 calcium carbonate 600 mg calcium 600 mg PO HS tab 05/24/19 12/17/20 (1,500 mg) tablet Senior Tabs 1 tab PO DAILY 10/16/19 12/17/20 coenzyme Q10 100 mg capsule 100 mg PO DAILY 12/09/20 12/17/20 Cbd 15 mg PO DAILY 12/17/20 12/17/20 cholecalciferol (vitamin D3) 20 mcg PO DAILY 12/17/20 12/17/20 [Vitamin D3] cholecalciferol (vitamin D3) 125 mcg PO 5XWK 12/17/20 12/17/20 [Vitamin D3] ipratropium-albuterol 3 ml INHALATION QID 12/17/20 12/17/20 metoprolol succinate 50 mg PO QID 12/17/20 12/17/20 omeprazole 40 mg PO QAM 12/17/20 12/17/20 warfarin 2 mg PO WK 12/17/20 12/17/20 warfarin 3 mg PO [id number] 12/17/20 12/17/20 Previous Rx's Medication Instructions Recorded blood sugar diagnostic #100 ea 01/30/19 lancets 30 gauge #100 ea 01/30/19 acetaminophen [Mapap 650 mg PO Q4H PRN #30 tab 10/22/19 (acetaminophen)] atorvastatin 40 mg tablet 40 mg PO HS #90 tab 06/04/20 budesonide-formoterol HFA 160 2 puff INHALATION BID #3 inhaler 07/15/20 mcg-4.5 mcg/actuation aerosol inhaler tiotropium bromide 2.5 2 inh INHALATION QAM #3 inhaler 07/15/20 mcg/actuation mist for inhalation albuterol sulfate 90 mcg/actuation 2 puff INH Q6H PRN #3 inhaler 10/05/20 aerosol inhaler metoprolol succinate 200 mg 200 mg PO DAILY #90 tab 10/12/20 tablet,extended release 24 hr prednisone 10 mg tablet 10 mg PO DAILY 30 Days #30 tab 03/26/21 prednisone 2.5 mg tablet 7.5 mg PO DAILY 30 Days #90 tab 12/15/20 Results & Data (ED) Vital Signs Vital Signs - 24 hr 12/17/20 16:38 12/17/20 18:32 12/17/20 18:33 Temperature 36.4 C L Temperature Source Temporal Artery Scan Pulse Rate 97 H 124 H Pulse Rate [Apical] 100 H Pulse Rate from SpO2 Sensor 103 H Respiratory Rate 20 20 Respiratory Depth Normal Blood Pressure 165/80 H 175/84 H Blood Pressure [Left Arm] 175/84 H Blood Pressure Mean 108 114 Blood Pressure Mean [Left Arm] 114 Pulse Oximetry 94 97 96 Oxygen Delivery Method Room Air Nasal Cannula Oxygen Flow Rate 2 Sepsis Recent Fever Within 48 Hours No Sepsis New/Unexplained Change in Mental Status N/A Sepsis Action Taken by Nursing No Action Required 12/17/20 18:44 12/17/20 19:00 12/17/20 19:30 Temperature Temperature Source Pulse Rate 98 H 115 H 105 H Pulse Rate [Apical] Pulse Rate from SpO2 Sensor 93 H 101 H 96 H Respiratory Rate 22 22 Respiratory Depth Blood Pressure Blood Pressure [Left Arm] Blood Pressure Mean Blood Pressure Mean [Left Arm] Pulse Oximetry 99 99 98 Oxygen Delivery Method Nasal Cannula Oxygen Flow Rate 2 Sepsis Recent Fever Within 48 Hours Sepsis New/Unexplained Change in Mental Status Sepsis Action Taken by Nursing 12/17/20 20:00 12/17/20 20:23 Temperature Temperature Source Pulse Rate 105 H 127 H Pulse Rate [Apical] Pulse Rate from SpO2 Sensor 92 H 90 Respiratory Rate 22 18 Respiratory Depth Blood Pressure 139/110 H Blood Pressure [Left Arm] Blood Pressure Mean 119 Blood Pressure Mean [Left Arm] Pulse Oximetry 98 95 Oxygen Delivery Method Nasal Cannula Nasal Cannula Oxygen Flow Rate 2 2 Sepsis Recent Fever Within 48 Hours Sepsis New/Unexplained Change in Mental Status Sepsis Action Taken by Nursing Laboratory Data Result diagrams: 12/17/20 16:53 12/17/20 16:53 Lab Results 12/17/20 12/17/20 12/17/20 Range/Units 16:53 16:53 16:53 WBC 15.23 H (4.8-10.8) K/uL RBC 5.17 (4.2-5.4) M/uL Hgb 15.1 (12.0-16.0) g/dL Hct 45.7 (37-47) % MCV 88.4 (80-100) fL MCH 29.2 (25-34) pg MCHC 33.0 (32-36) g/dL RDW Std Deviation 47.3 H (36.4-46.3) fL RDW Coeff of Mark 14.7 H (11.5-14.5) % Plt Count 260 (130-400) K/uL MPV 10.3 (7.4-10.4) fL Immature Gran % (Auto) 0.4 % Neut % (Auto) 77.7 % Lymph % (Auto) 12.6 % Maries % (Auto) 8.1 % Eos % (Auto) 0.9 % Baso % (Auto) 0.3 % Neut # (Auto) 11.84 H (1.4-6.5) K/uL Lymph # (Auto) 1.92 (1.2-3.4) K/uL Maries # (Auto) 1.24 H (0.11-0.59) K/uL Eos # (Auto) 0.13 (0-0.5) K/uL Baso # (Auto) 0.04 (0-0.2) K/uL Immature Gran # (Auto) 0.06 H (0.00-0.02) K/uL PT Cancelled INR Cancelled APTT Cancelled PTT Ratio Cancelled Sodium 140 (136-145) mmol/L Potassium 4.5 (3.5-5.1) mmol/L Chloride 107 (98-107) mmol/L Carbon Dioxide 30 (21-32) mmol/L Anion Gap 3.0 (3-11) BUN 22 H (7-18) mg/dl Creatinine 1.12 (0.6-1.2) mg/dl Est Cr Clr Drug Dosing Not Reportable Est GFR ( Amer) 56.0 Est GFR (Non-Af Amer) 48.4 BUN/Creatinine Ratio 19.9 (10-20) Glucose 121 H (70-99) mg/dl Calcium 9.1 (8.5-10.1) mg/dl Total Bilirubin 0.4 (0.2-1) mg/dl AST 23 (15-37) U/L ALT 54 (12-78) U/L Alkaline Phosphatase 74 (45-117) U/L Troponin I < 0.015 (0-0.045) ng/ml Total Protein 7.7 (6.4-8.2) gm/dl Albumin 3.4 (3.4-5.0) gm/dl Globulin 4.3 H (2.5-4.0) gm/dl Albumin/Globulin Ratio 0.8 L (0.9-2) COVID-19 Eval Order SARS-CoV-2 (PCR) (Negative) Influenza Type A (PCR) (Neg) Influenza Type B (PCR) (Neg) RSV (RT-PCR) (Neg) 12/17/20 12/17/20 12/17/20 Range/Units 17:41 18:19 18:19 WBC (4.8-10.8) K/uL RBC (4.2-5.4) M/uL Hgb (12.0-16.0) g/dL Hct (37-47) % MCV (80-100) fL MCH (25-34) pg MCHC (32-36) g/dL RDW Std Deviation (36.4-46.3) fL RDW Coeff of Mark (11.5-14.5) % Plt Count (130-400) K/uL MPV (7.4-10.4) fL Immature Gran % (Auto) % Neut % (Auto) % Lymph % (Auto) % Maries % (Auto) % Eos % (Auto) % Baso % (Auto) % Neut # (Auto) (1.4-6.5) K/uL Lymph # (Auto) (1.2-3.4) K/uL Maries # (Auto) (0.11-0.59) K/uL Eos # (Auto) (0-0.5) K/uL Baso # (Auto) (0-0.2) K/uL Immature Gran # (Auto) (0.00-0.02) K/uL PT 15.0 H INR 1.5 H APTT 28.8 PTT Ratio 1.1 Sodium (136-145) mmol/L Potassium (3.5-5.1) mmol/L Chloride (98-107) mmol/L Carbon Dioxide (21-32) mmol/L Anion Gap (3-11) BUN (7-18) mg/dl Creatinine (0.6-1.2) mg/dl Est Cr Clr Drug Dosing Est GFR ( Amer) Est GFR (Non-Af Amer) BUN/Creatinine Ratio (10-20) Glucose (70-99) mg/dl Calcium (8.5-10.1) mg/dl Total Bilirubin (0.2-1) mg/dl AST (15-37) U/L ALT (12-78) U/L Alkaline Phosphatase (45-117) U/L Troponin I (0-0.045) ng/ml Total Protein (6.4-8.2) gm/dl Albumin (3.4-5.0) gm/dl Globulin (2.5-4.0) gm/dl Albumin/Globulin Ratio (0.9-2) COVID-19 Eval Order CovFluRsv at [facility] SARS-CoV-2 (PCR) NEGATIVE (Negative) Influenza Type A (PCR) Negative (Neg) Influenza Type B (PCR) Negative (Neg) RSV (RT-PCR) Negative (Neg) Administered Medications Discontinued Medications Atorvastatin Calcium (Atorvastatin 40 Mg Tab) 40 mg PO NOW STA Stop: 12/17/20 19:45 Last Admin: 12/17/20 20:20 Dose: 40 mg Documented by: [id number] Metoprolol Succinate (Metoprolol Succ 50mg Ext Rel Tab) 200 mg PO NOW STA Stop: 12/17/20 19:45 Last Admin: 12/17/20 20:19 Dose: 200 mg Documented by: [id number] Nitroglycerin (Nitroglycerin 2% Ointment 30gm Tube) 0.5 inch EXT NOW STA Stop: 12/17/20 17:55 Last Admin: 12/17/20 18:16 Dose: 0.5 inch Documented by: [id number] Prednisone (Prednisone 10 Mg Tablet) 10 mg PO NOW STA Stop: 12/17/20 19:45 Last Admin: 12/17/20 20:19 Dose: 10 mg Documented by: [id number] Warfarin Sodium (Warfarin Sod 3 Mg Tab) 3 mg PO NOW STA Stop: 12/17/20 19:45 Last Admin: 12/17/20 20:20 Dose: 3 mg Documented by: [id number] Imaging Data Radiologist's Impression: Chest X-Ray 12/17/20 16:51 SINGLE VIEW CHEST CLINICAL HISTORY: Atypical chest pain. Dyspnea. FINDINGS: An AP, portable, upright chest radiograph is compared to study dated 11/20/2020. A 2-lead cardiac pacemaker is unchanged in position and partially obscures the left mid chest. The heart is enlarged noting atherosclerotic calcification of the thoracic aorta. The pulmonary vasculature is noncongested. Emphysema and chronic interstitial thickening is similar to previous. There is bibasilar scarring/atelectasis. No airspace consolidation or large pleural eff usion is identified. No pneumothorax is seen. The skeletal structures are osteopenic. The bony thorax is grossly intact. IMPRESSION: 1. Cardiomegaly and cardiac pacemaker. There is no radiographic evidence of congestive failure. 2. Emphysema. 3. No airspace consolidation or large pleural effusion is identified. ACT 112: Negative or not required by law. Electronically signed by: Jason Munoz M.D. 12/17/2020 5:15 PM Discharge Plan Visit Data Chief Complaint: Chest Pain Stated Complaint: HEARTBURN, PRESSURE, CHEST PAIN ED Provider: Rm Rolle Discharge Problem: Retrosternal chest pain Patient Disposition: Admitted As Inpatient Discharge Instructions Interventions: ED Discharge Assessment Last Done: 12/17/20 21:42
[2020-12-17] MEDS ORDERED: NITROGLYCERIN 2% OINTMENT 30GM TUBE EXT STA (17:54)
[2020-12-17 18:20] LABS: INR 1.5 (0.9-1.1); Partial Thromboplastin Ratio 1.1; Partial Thromboplastin Time 28.8 Seconds (21.0-31.0)
[2020-12-17 19:09] LABS: Influenza A virus by PCR Negative (Neg); Influenza B virus by PCR Negative (Neg); RSV by PCR Negative (Neg); SARS CoV2 RNA(COVID-19) InHosp NEGATIVE (Negative)
[2020-12-17] MEDS ORDERED: ATORVASTATIN 40 MG TAB PO STA (19:44)
[2020-12-17] MEDS ORDERED: predniSONE 10 MG TABLET PO STA (19:44)
[2020-12-17] MEDS ORDERED: METOPROLOL SUCC 50MG EXT REL TAB PO STA (19:44)
[2020-12-17] MEDS ORDERED: WARFARIN SOD 3 MG TAB PO STA (19:44)
--- NOTE | 2020-12-17 20:02 | History & Physical Report ---
Date of Service December 17, 2020 Assessment & Plan (1) Retrosternal chest pain: 75yo C female with known CAD s/p stent placement in 2014, pacemaker in place, presenting with substernal chest discomfort/pressure ongoing since this AM. Troponin is negative. EKG with no acute changes. No reproducible chest or abdominal pain on exam -teletypesetter monitor -Trend troponin -EKG PRN -Nitro PRN -Continue ASA, Metoprolol, Atorvastatin Present on Admission?: Yes (2) HTN (hypertension): Blood pressure elevated, now improved -Continue Metoprolol -Continue to monitor Present on Admission?: Yes (3) Paroxysmal atrial fibrillation: Rate controlled. Patient anticoagulated on Coumadin. Was recently supratherapeutic with INR of 3.8 on 12/14. She was instructed to hold her dose on 12/14 and take 1mg on 12/15 then resume her normal dosage. -Continue Coumadin -Check INR in AM -Metoprolol 200mg daily -Continue to monitor Present on Admission?: Yes (4) CAD in [place] artery: Patient with CAD s/p NSTEMI on 10/20/14 with PCI placement. She follows with Cardiology, last seen on 09/04/20 -Continue ASA 81mg daily -Continue Atorvastatin 40mg qHS -Metoprolol 200mg po qHS. Patient was previously taking Metoprolol 50mg po QID with plan to switch to 200mg daily once she finished her 50mg tablets at home. Present on Admission?: Yes (5) Type 2 diabetes mellitus: Diet controlled. Last MinY9J=3.7 on 12/09/20 -ISS, goal blood sugar 100 - 140 Present on Admission?: Yes (6) Sleep apnea: Patient is wholly compliant with her CPAP -CPAP qHS. She has her own machine with her and prefers to use it rather than the hospital CPAP Present on Admission?: Yes (7) COPD, group D, by GOLD 2017 classification: Patient on home O2 2L. Presently on prolonged steroid taper -Continue Prednisone 10mg po daily. She reports that she is to be decreased to 7.5mg po daily on Monday -DuoNeb q 4 hours -Albuterol HFA PRN -Continue supplemental O2 at home dose Present on Admission?: Yes (8) GERD (gastroesophageal reflux disease): Chronic. Stable -Continue Protonix 40mg po daily F/E/N - Heplock. Electrolytes WNL. AHA/CC diet as tolerated Ppx - On Coumadin for AF - continue. Continue Protonix Code - Full per discussion with patient Dispo - Obs to med-tele Present on Admission?: Yes History of Present Illness Chief Complaint: chest pain Primary Care Provider: Dakotah Holliday DO Ann Marie Pena is a 75yo C female with history of CAD, HTN, HLP presenting with chest pain. Patient reports that she has been having substernal chest discomfort ongoing since this AM. She describes discomfort/pressure /10 in severity - nonradiating/non-pleuritic/non-exertional. No associated shortness of breath/diaphoresis or dizziness. She did eat a pudding cup this afternoon which caused nausea and one episode of non-bloody/non-bilious emesis. She is currenlty on PO Prednisone for her COPD - approximately 3+ weeks into a 1 month course (ends on Monday). She takes 10mg daily. States that she is not very active at home. Denies exertional symptoms. She does occasionally experience chest pressure at rest. She follows with Cardiology. Last seen in August 2020 - scheduled for January 2021. Patient has received her Covid-19 vaccines Er Course: Metoprolol 200mg po, Albuterol neb, Coumadin 3mg PO, Atorvastatin 40mg po, Prednisone 10mg PO, Nitro paste Allergies Allergy/AdvReac Type Severity Reaction Status Date / Time fluticasone furoate Allergy Severe Swelling Verified 12/17/20 18:13 [From Trelegy Ellipta] of Lip/Tongue/Throat umeclidinium Allergy Severe Swelling Verified 12/17/20 18:13 [From Trelegy Ellipta] of Lip/Tongue/Throat vilanterol Allergy Severe Swelling Verified 12/17/20 18:13 [From Trelegy Ellipta] of Lip/Tongue/Throat cephalexin AdvReac Mild PT BECOMES Verified 12/17/20 18:13 ANXIOUS lisinopril AdvReac Mild COUGH Verified 12/17/20 18:13 Home Medications Medication Instructions Recorded Confirmed Type blood sugar diagnostic #100 ea 01/30/19 12/09/20 Rx lancets 30 gauge #100 ea 01/30/19 12/09/20 Rx aspirin 81 mg PO QAM 03/15/19 12/17/20 History omega 9-jgc-vrt-fish oil [Fish Oil] 1 cap PO QAM 03/15/19 12/17/20 History lancets 33 gauge #100 ea 03/30/19 12/09/20 History calcium carbonate 600 mg calcium 600 mg PO HS tab 05/24/19 12/17/20 History (1,500 mg) tablet Senior Tabs 1 tab PO DAILY 10/16/19 12/17/20 History acetaminophen [Mapap 650 mg PO Q4H PRN #30 tab 10/22/19 12/17/20 Rx (acetaminophen)] atorvastatin 40 mg tablet 40 mg PO HS #90 tab 06/04/20 12/17/20 Rx budesonide-formoterol HFA 160 2 puff INHALATION BID #3 inhaler 07/15/20 12/17/20 Rx mcg-4.5 mcg/actuation aerosol inhaler tiotropium bromide 2.5 2 inh INHALATION QAM #3 inhaler 07/15/20 12/17/20 Rx mcg/actuation mist for inhalation albuterol sulfate 90 mcg/actuation 2 puff INH Q6H PRN #3 inhaler 10/05/20 12/17/20 Rx aerosol inhaler metoprolol succinate 200 mg 200 mg PO DAILY #90 tab 10/12/20 12/17/20 Rx tablet,extended release 24 hr prednisone 10 mg tablet 10 mg PO DAILY 30 Days #30 tab 11/20/20 12/17/20 Rx coenzyme Q10 100 mg capsule 100 mg PO DAILY 12/09/20 12/17/20 History prednisone 2.5 mg tablet 7.5 mg PO DAILY 30 Days #90 tab 12/15/20 12/17/20 Rx Cbd 15 mg PO DAILY 12/17/20 12/17/20 History cholecalciferol (vitamin D3) 20 mcg PO DAILY 12/17/20 12/17/20 History [Vitamin D3] cholecalciferol (vitamin D3) 125 mcg PO 5XWK 12/17/20 12/17/20 History [Vitamin D3] ipratropium-albuterol 3 ml INHALATION QID 12/17/20 12/17/20 History metoprolol succinate 50 mg PO QID 12/17/20 12/17/20 History omeprazole 40 mg PO QAM 12/17/20 12/17/20 History warfarin 2 mg PO WK 12/17/20 12/17/20 History warfarin 3 mg PO 6XWK 12/17/20 12/17/20 History Past Med/Surg History Medical History Anxiety CAD in [place] artery Carotid artery stenosis COPD, group D, by GOLD 2017 classification COPD, severe Depression GERD (gastroesophageal reflux disease) History of colon polyps History of tobacco abuse (~09/2019) HTN (hypertension) 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 Morfin History of colonoscopy History of heart artery stent x1 09/2014 History of tooth extraction S/P placement of cardiac pacemaker Status post laser cataract surgery of both eyes had procedure done after cataract removal Status post trigger finger release left hand thumb Family History Grandmother (Maternal) Diabetes Mother Colorectal cancer Father Alzheimer disease Hypertension Sister Hypertension Aunt Breast cancer Other No family history of adverse response to anesthesia Denies family history of Ovarian cancer Prostate cancer Myocardial infarction Social History Smoking Status: Former smoker Tobacco Type: Cigarettes Age Started Using Tobacco: 16; Age Quit Using Tobacco: 74; packs per day: 1; Cigarettes Per Day: 1 pack per day until last few years 1 pack per week; Smoking End Date: July 2019, smoked 50 years; Second Hand Exposure: No; Hx Alcohol Use: No Hx Substance Use: No Preferred Language: Kazakh Communication Ability: Effective Visual Impairment: No Limitations Hearing Ability: Normal Film Inspector Required: No Beliefs That Will Affect Care: None marital status: / Current Living Situation: Alone current occupational status: retired How many Children do You have: 1 Feels Safe at Home: Yes Safety Concerns: Feels Safe At This Time Childhood Exposure to Second-Hand Smoke: Yes caffeine: Yes Dental Care, Regularly: No Physical Activity Frequency: Does not Exercise Seatbelt Use: always Sunscreen Use: No Assistive Devices: Cane, CPAP, Glasses, Oxygen - Continuous and Walker Review of Systems Review of Systems: All systems reviewed & are unremarkable except as noted in HPI & below Physical Exam Physical Exam: General: obese female patient resting comfortably, NAD, non- toxic in appearance, AA&O x 4 Skin: warm, dry, intact, no rashes or lesions HEENT: NC/AT, PERRL, EOMI, anicteric sclera, conjunctiva without injection, external ear normal to inspection and nontender, nares patent, moist mucus membranes, dentition intact, no oropharyngeal lesions, neck supple, trachea midline, no LAD, no thyromegaly, no JVD Heart: +S1/S2, regular, tachycardic, no m/r/g Lungs: equal air entry bilaterally, no rales/rhonchi/wheezes Abd: +BS, soft, NT/ND, no masses/organomegaly/ascites Ext: warm, 2+ pulses in UE/LE bilaterally, no clubbing/cyanosis, 1+ pitting edema to knees Neuro: nonfocal, patient AA&O x 4, speech intact, no facial droop, moving all extremities on command with equal strength 5/5 Results & Data Results & Data ([facility]) Vital Signs (Past 12 Hours) Vital Signs Temp Pulse Pulse Resp BP BP Pulse Ox 12/17/20 19:00 115 H 99 12/17/20 18:44 98 H 22 99 12/17/20 18:33 124 H 175/84 H 96 12/17/20 18:32 100 H 20 175/84 H 97 12/17/20 16:38 36.4 C L 97 H 20 165/80 H 94 Laboratory Results Lab Results 12/17/20 12/17/20 12/17/20 Range/Units 16:53 16:53 16:53 WBC 15.23 H (4.8-10.8) K/uL RBC 5.17 (4.2-5.4) M/uL Hgb 15.1 (12.0-16.0) g/dL Hct 45.7 (37-47) % MCV 88.4 (80-100) fL MCH 29.2 (25-34) pg MCHC 33.0 (32-36) g/dL RDW Std Deviation 47.3 H (36.4-46.3) fL RDW Coeff of Mark 14.7 H (11.5-14.5) % Plt Count 260 (130-400) K/uL MPV 10.3 (7.4-10.4) fL Immature Gran % (Auto) 0.4 % Neut % (Auto) 77.7 % Lymph % (Auto) 12.6 % Harney % (Auto) 8.1 % Eos % (Auto) 0.9 % Baso % (Auto) 0.3 % Neut # (Auto) 11.84 H (1.4-6.5) K/uL Lymph # (Auto) 1.92 (1.2-3.4) K/uL Harney # (Auto) 1.24 H (0.11-0.59) K/uL Eos # (Auto) 0.13 (0-0.5) K/uL Baso # (Auto) 0.04 (0-0.2) K/uL Immature Gran # (Auto) 0.06 H (0.00-0.02) K/uL PT Cancelled INR Cancelled APTT Cancelled PTT Ratio Cancelled Sodium 140 (136-145) mmol/L Potassium 4.5 (3.5-5.1) mmol/L Chloride 107 (98-107) mmol/L Carbon Dioxide 30 (21-32) mmol/L Anion Gap 3.0 (3-11) BUN 22 H (7-18) mg/dl Creatinine 1.12 (0.6-1.2) mg/dl Est Cr Clr Drug Dosing Not Reportable Est GFR ( Amer) 56.0 Est GFR (Non-Af Amer) 48.4 BUN/Creatinine Ratio 19.9 (10-20) Glucose 121 H (70-99) mg/dl POC Glucose (70-99) mg/dl Calcium 9.1 (8.5-10.1) mg/dl Total Bilirubin 0.4 (0.2-1) mg/dl AST 23 (15-37) U/L ALT 54 (12-78) U/L Alkaline Phosphatase 74 (45-117) U/L Troponin I < 0.015 (0-0.045) ng/ml NT-Pro-B Natriuret Pep 1007 H (0-900) pg/ml Total Protein 7.7 (6.4-8.2) gm/dl Albumin 3.4 (3.4-5.0) gm/dl Globulin 4.3 H (2.5-4.0) gm/dl Albumin/Globulin Ratio 0.8 L (0.9-2) COVID-19 Eval Order SARS-CoV-2 (PCR) (Negative) Influenza Type A (PCR) (Neg) Influenza Type B (PCR) (Neg) RSV (RT-PCR) (Neg) 12/17/20 12/17/20 12/17/20 Range/Units 17:41 18:19 18:19 WBC (4.8-10.8) K/uL RBC (4.2-5.4) M/uL Hgb (12.0-16.0) g/dL Hct (37-47) % MCV (80-100) fL MCH (25-34) pg MCHC (32-36) g/dL RDW Std Deviation (36.4-46.3) fL RDW Coeff of Mark (11.5-14.5) % Plt Count (130-400) K/uL MPV (7.4-10.4) fL Immature Gran % (Auto) % Neut % (Auto) % Lymph % (Auto) % Harney % (Auto) % Eos % (Auto) % Baso % (Auto) % Neut # (Auto) (1.4-6.5) K/uL Lymph # (Auto) (1.2-3.4) K/uL Harney # (Auto) (0.11-0.59) K/uL Eos # (Auto) (0-0.5) K/uL Baso # (Auto) (0-0.2) K/uL Immature Gran # (Auto) (0.00-0.02) K/uL PT 15.0 H INR 1.5 H APTT 28.8 PTT Ratio 1.1 Sodium (136-145) mmol/L Potassium (3.5-5.1) mmol/L Chloride (98-107) mmol/L Carbon Dioxide (21-32) mmol/L Anion Gap (3-11) BUN (7-18) mg/dl Creatinine (0.6-1.2) mg/dl Est Cr Clr Drug Dosing Est GFR ( Amer) Est GFR (Non-Af Amer) BUN/Creatinine Ratio (10-20) Glucose (70-99) mg/dl POC Glucose (70-99) mg/dl Calcium (8.5-10.1) mg/dl Total Bilirubin (0.2-1) mg/dl AST (15-37) U/L ALT (12-78) U/L Alkaline Phosphatase (45-117) U/L Troponin I (0-0.045) ng/ml NT-Pro-B Natriuret Pep (0-900) pg/ml Total Protein (6.4-8.2) gm/dl Albumin (3.4-5.0) gm/dl Globulin (2.5-4.0) gm/dl Albumin/Globulin Ratio (0.9-2) COVID-19 Eval Order CovFluRsv at [facility] SARS-CoV-2 (PCR) NEGATIVE (Negative) Influenza Type A (PCR) Negative (Neg) Influenza Type B (PCR) Negative (Neg) RSV (RT-PCR) Negative (Neg) 12/17/20 Range/Units 22:44 WBC (4.8-10.8) K/uL RBC (4.2-5.4) M/uL Hgb (12.0-16.0) g/dL Hct (37-47) % MCV (80-100) fL MCH (25-34) pg MCHC (32-36) g/dL RDW Std Deviation (36.4-46.3) fL RDW Coeff of Mark (11.5-14.5) % Plt Count (130-400) K/uL MPV (7.4-10.4) fL Immature Gran % (Auto) % Neut % (Auto) % Lymph % (Auto) % Harney % (Auto) % Eos % (Auto) % Baso % (Auto) % Neut # (Auto) (1.4-6.5) K/uL Lymph # (Auto) (1.2-3.4) K/uL Harney # (Auto) (0.11-0.59) K/uL Eos # (Auto) (0-0.5) K/uL Baso # (Auto) (0-0.2) K/uL Immature Gran # (Auto) (0.00-0.02) K/uL PT INR APTT PTT Ratio Sodium (136-145) mmol/L Potassium (3.5-5.1) mmol/L Chloride (98-107) mmol/L Carbon Dioxide (21-32) mmol/L Anion Gap (3-11) BUN (7-18) mg/dl Creatinine (0.6-1.2) mg/dl Est Cr Clr Drug Dosing Est GFR ( Amer) Est GFR (Non-Af Amer) BUN/Creatinine Ratio (10-20) Glucose (70-99) mg/dl POC Glucose 147 H (70-99) mg/dl Calcium (8.5-10.1) mg/dl Total Bilirubin (0.2-1) mg/dl AST (15-37) U/L ALT (12-78) U/L Alkaline Phosphatase (45-117) U/L Troponin I (0-0.045) ng/ml NT-Pro-B Natriuret Pep (0-900) pg/ml Total Protein (6.4-8.2) gm/dl Albumin (3.4-5.0) gm/dl Globulin (2.5-4.0) gm/dl Albumin/Globulin Ratio (0.9-2) COVID-19 Eval Order SARS-CoV-2 (PCR) (Negative) Influenza Type A (PCR) (Neg) Influenza Type B (PCR) (Neg) RSV (RT-PCR) (Neg) Diagnostic Findings SINGLE VIEW CHEST CLINICAL HISTORY: Atypical chest pain. Dyspnea. FINDINGS: An AP, portable, upright chest radiograph is compared to study dated 11/20/2020. A 2-lead cardiac pacemaker is unchanged in position and partially obscures the left mid chest. The heart is enlarged noting atherosclerotic calcification of the thoracic aorta. The pulmonary vasculature is noncongested. Emphysema and chronic interstitial thickening is similar to previous. There is bibasilar scarring/atelectasis. No airspace consolidation or large pleural effusion is identified. No pneumothorax is seen. The skeletal structures are osteopenic. The bony thorax is grossly intact. IMPRESSION: 1. Cardiomegaly and cardiac pacemaker. There is no radiographic evidence of congestive failure. 2. Emphysema. 3. No airspace consolidation or large pleural effusion is identified. ACT 112: Negative or not required by law. Electronically signed by: Jason Munoz M.D. 12/17/2020 5:15 PM Dictated: 12/17/201712Transcribed: 12/17/201712 ECG Additional Comments: EKG with AF at 104, normal axis, QRS=70, BJe=467, no acute ischemic changes PG Care Time/CCT Total # of Minutes Spent Total Time Spent with Patient: Total time spent is greater than 50% in coordination of care (as documented) at patient's floor/unit and/or counseling patient: Coding Level of Care Code 13098 OBS Care - Level 3 Diagnoses Retrosternal chest pain R07.2 HTN (hypertension) I10 Hypertension type: essential hypertension Paroxysmal atrial fibrillation I48.0 CAD in [place] artery I25.10 Type 2 diabetes mellitus E11.9 Diabetes mellitus group home insulin use: without group home use Diabetes mellitus complication status: without complication Sleep apnea G47.30 Sleep apnea type: unspecified type COPD, group D, by GOLD 2017 classification J44.9 GERD (gastroesophageal reflux disease) K21.9 Esophagitis presence: esophagitis presence not specified (1) Sleep apnea Sleep apnea type: unspecified type Qualified Code(s): G47.30 - Sleep apnea, unspecified (2) Type 2 diabetes mellitus Diabetes mellitus group home insulin use: without group home use Diabetes mellitus complication status: without complication Qualified Code(s): E11.9 - Type 2 diabetes mellitus without complications (3) GERD (gastroesophageal reflux disease) Esophagitis presence: esophagitis presence not specified Qualified Code(s): K21.9 - Gastro-esophageal reflux disease without esophagitis (4) HTN (hypertension) Hypertension type: essential hypertension Qualified Code(s): I10 - Essential (primary) hypertension
[2020-12-17] MEDS ORDERED: NITROGLYCERIN SL 0.4 MG/TAB TAB SL PRN (22:04)
[2020-12-17] MEDS ORDERED: GLUCOSE 40% GEL 15 GM TUBE PO PRN (22:04)
[2020-12-17] MEDS ORDERED: GLUCAGON FOR INJ 1 MG VIAL SQ PRN (22:04)
[2020-12-17] MEDS ORDERED: ALBUTEROL HFA 8 GM INHALER INH PRN (22:04)
[2020-12-17] MEDS ORDERED: GLUCOSE 10 TABS/TUBE PO PRN (22:04)
[2020-12-17] MEDS ORDERED: ONDANSETRON INJ 2 MG/ML 2 ML VIAL IV PRN (22:04)
[2020-12-17] MEDS ORDERED: CARBOHYDRATES FOR HYPOGLYCEMIA PO PRN (22:04)
[2020-12-17] MEDS ORDERED: DEXTROSE 50% 50 ML SYRINGE IV PRN (22:04)
[2020-12-17] MEDS ORDERED: ACETAMINOPHEN 325 MG TAB PO PRN (22:04)
[2020-12-17] MEDS: ALBUT/IPRATROP 3MG/0.5MG NEB 3 ML VIAL INH SCH (22:46)
[2020-12-17 23:07] LABS: NT Pro B Type Natriuretic Pept 1007 pg/ml (0-900)
[2020-12-17] MEDS: METOPROLOL SUCC 50MG EXT REL TAB PO SCH (23:07)
[2020-12-17] MEDS: predniSONE 10 MG TABLET PO SCH (23:07)
[2020-12-17] MEDS: WARFARIN SOD 3 MG TAB PO SCH (23:08)
[2020-12-17] MEDS: INSULIN ASPART 100 UNITS/ML 3 ML PEN SC SCH (23:10)
[2020-12-18] MEDS: ALBUT/IPRATROP 3MG/0.5MG NEB 3 ML VIAL INH SCH ×4 (07:06→19:30)
[2020-12-18] MEDS: ASPIRIN 81 MG ECTAB PO SCH (08:23)
[2020-12-18] MEDS: INSULIN ASPART 100 UNITS/ML 3 ML PEN SC SCH ×4 (08:27→21:17)
[2020-12-18 08:33] LABS: INR 1.7 (0.9-1.1); Prothrombin Time 16.7 Seconds (9.0-12.0)
[2020-12-18] MEDS ORDERED: PANTOprazole 40 MG TAB PO SCH (09:00)
[2020-12-18] MEDS ORDERED: FUROSEMIDE 40 MG in SYRINGE 0 ML IV ONE (11:45)
--- NOTE | 2020-12-18 13:00 | Electrocardiogram Report ---
Test Reason : Blood Pressure : / mmHG Vent. Rate : 104 BPM Atrial Rate : 108 BPM P-R Int : 000 ms QRS Dur : 070 ms QT Int : 326 ms P-R-T Axes : 000 057 065 degrees QTc Int : 428 ms Atrial fibrillation with rapid ventricular response Low voltage QRS Abnormal ECG When compared with ECG of 22-OCT-2019 07:58, Atrial fibrillation has replaced Electronic ventricular pacemaker Confirmed by Chapincito Vincent ([id number]) on 12/18/2020 1:00:05 PM Referred By: REFERRED SELF Confirmed By:Mike Vincent
[2020-12-18] MEDS ORDERED: WARFARIN SOD 2 MG TAB PO SCH (16:00)
--- NOTE | 2020-12-18 18:32 | Ultrasound Report ---
US gallbladder CLINICAL HISTORY: RUQ pain, stones; eval cholecystitis COMPARISON STUDY: CT of the abdomen January 03, 2017. FINDINGS: Hepatic echogenicity is increased. Note is made of a 1 cm left hepatic lobe cyst. There is no biliary ductal dilatation. The common bile duct measures 6 mm in caliber. There are multiple galls tones within the gallbladder. No sonographic Spicer sign was elicited. No gallbladder wall thickening . There is no pericholecystic fluid. Pancreatic body is normal. Head and tail are obscured. There is no right hydronephrosis. IMPRESSION: 1. Cholelithiasis. No sonographic evidence for acute cholecystitis. 2. No biliary ductal dilatation. 3. Hepatic steatosis. 4. Largely obscured pancreas. ACT 112: Negative or not required by law. Electronically signed by: Rick Singleton M.D. 12/18/2020 6:31 PM
[2020-12-18] MEDS: predniSONE 10 MG TABLET PO SCH (20:06)
--- NOTE | 2020-12-18 20:34 | Hospitalist Progress Note ---
Date of Service December 18, 2020 Assessment & Plan (1) Retrosternal chest pain: Despite her pains yesterday troponins are negative x 3. Pain is now resolved. Some of the features are similar to her NSTEMI symptoms in 2015. Tele with a.fib overnight, rates largely controlled. Nothing reproducible on examination. No stress test or cath since her RCA stent in 2014. I spoke with her primary automotive sales representative, Dr Morfin. Plan for outpatient stress test this coming week. Will arrange lexiscan nuclear stress test. In meantime will continue her aspirin, statin, beta supa. If pain is noncardiac possible etiologies include biliary tract disease, GERD/gastritis, etc. Prior CT a/p showed gallstones thus I obtained RUQ u/s. This confirmed gallstones but there were no signs of cholecystitis. In the event this was severe GERD will increase PPI to bid dosing. (2) CAD in [place] artery: Patient with CAD s/p NSTEMI on 10/20/14 with PCI placement (99% RCA stenosis s/p MIHIR at that time). Primary automotive sales representative - Mani Morfin MD. See above in "Chest pain." Trops neg x 3. Continue ASA 81mg daily. Continue Atorvastatin 40mg hs. Continue Metoprolol succinate 200mg po hs (just recently switched from qid metoprolol tartrate to once daily succinate). (3) SMITH (dyspnea on exertion): This has been attributed to severe COPD over the last few months leading to initiation of prolonged steroid taper. She is currently on 10mg/day of prednisone. She has gained copious weight over the last year. She has crackles on exam. She could have pulm edema/volume overload causing some of her SMITH. BNP is mildly elevated. Will give lasix 40mg IV x 1 and re-eval in am. Check echo. (4) Gall stones: As seen on prior CT and today's RUQ u/s but no signs of acute cholecystitis. Patient aware of gallstones. (5) HTN (hypertension): Controlled (6) Paroxysmal atrial fibrillation: h/o PAF but appears to now have permanent a.fib. Rates largely controlled with metoprolol. Patient on Coumadin. Was recently supratherapeutic with INR of 3.8 on 12/14. She was instructed to hold her dose on 12/14 and take 1mg on 12/15 then resume her normal dosage. Coumadin 2mg x 1 today, then 3mg tomorrow. INR am. (7) Type 2 diabetes mellitus: Last [id number]=3.7 on 12/09/20 novolog correction (8) Sleep apnea: CPAP HS (9) COPD, group D, by GOLD 2017 classification: With resulting chronic hypoxic resp failure, on home O2 2L continuously. Also on prolonged steroid taper - currently at 10mg/day. Does not appear to be in exacerbation at this time. She reports that the prednisone will be decreased to 7.5mg/day starting on 12/21. (10) GERD (gastroesophageal reflux disease): increase PPI to bid dosing (11) Chronic respiratory failure with hypoxia: stable on home O2 amount, 2 liters continuously. (12) Morbid obesity with BMI of 50.0-59.9, adult: BMI 54 (13) Cardiac pacemaker: Placed in setting of a.fib in the past follows with [facility] [place] Admission and Anticipated Discharge Date Admission Date: December 17, 2020 Subjective patient has had no further substernal chest pain. pain was similar to her pain that she had with NSTEMI in 2015 leading to cath and RCA stent placement. no radiation of pain to either arm, jaw or neck; no radiation to back. had emesis several times. "always has dyspnea on exertion." recently she was prescribed prolonged course of prednisone starting with 30mg/day. she feels this has helped her SMITH. she describes what sounds like nightly orthopnea. has gained weight in the last year - at least 40 pounds. denies recent pain in abdomen following meals. has heartburn chronically but yesterday's pain wasn't like previous heartburn symptoms. Review of Systems Constitutional: no fever and no chills Respiratory: + cough and + dyspnea on exertion; no sputum production Cardiovascular: as per Subjective / HPI, + chest pain, + dyspnea on exertion and + orthopnea; no dyspnea at rest and no edema Gastrointestinal: as per Subjective / HPI, + nausea and + vomiting; no diarrhea/loose stools Physical Exam Constitutional: + morbidly obese; no acute distress and no altered mental status ENMT: external ear and nose normal, oropharynx normal Respiratory: no respiratory distress Auscultation: + crackles (bases); no wheezes Cardiovascular: Rate/Rhythm: regular rate and + irregularly irregular Heart Sounds: normal S1 and normal S2; no murmur Vessels: posterior tibial pulses present and dorsalis pedis pulses present; no JVD Extremities: no edema Chest (Breasts): Additional Comments: no reproducible chest wall pain w/ palpation Gastrointestinal (Abdomen): Inspection/Auscultation: normal bowel sounds; abdomen not distended Percussion/Palpation: + abdomen tender (minimal - high epigastric region ); no hepatosplenomegaly Psychiatric: A+Ox3, euthymic affect Results & Data Results & Data ([facility]) Vital Signs (Past 12 Hours) Vital Signs Temp Pulse Resp BP Pulse Ox 12/18/20 19:30 101 H 18 95 12/18/20 19:04 37.0 C 111 H 20 127/69 94 12/18/20 14:55 78 20 94 12/18/20 12:24 36.7 C 95 H 20 94 12/18/20 11:07 91 H 18 98 Laboratory Results Laboratory Results - last 24 hr 12/17/20 12/17/20 12/18/20 16:53 22:44 00:45 PT INR POC Glucose 147 H Troponin I < 0.015 NT-Pro-B Natriuret Pep 1007 H 12/18/20 12/18/20 12/18/20 07:21 08:06 08:06 PT 16.7 H INR 1.7 H POC Glucose 96 Troponin I < 0.015 NT-Pro-B Natriuret Pep 12/18/20 12/18/20 12/18/20 11:30 16:28 20:10 PT INR POC Glucose 85 117 H 149 H Troponin I NT-Pro-B Natriuret Pep Diagnostic Findings Gallbladder Ultrasound 12/18/20 13:23 US gallbladder CLINICAL HISTORY: RUQ pain, stones; eval cholecystitis COMPARISON STUDY: CT of the abdomen January 03, 2017. FINDINGS: Hepatic echogenicity is increased. Note is made of a 1 cm left hepatic lobe cyst. There is no biliary ductal dilatation. The common bile duct measures 6 mm in caliber. There are multiple gallstones within the gallbladder. No sonographic Spicer sign was elicited. No gallbladder wall thickening. There is no pericholecystic fluid. Pancreatic body is normal. Head and tail are obscured. There is no right hydronephrosis. IMPRESSION: 1. Cholelithiasis. No sonographic evidence for acute cholecystitis. 2. No biliary ductal dilatation. 3. Hepatic steatosis. 4. Largely obscured pancreas. ACT 112: Negative or not required by law. Electronically signed by: Rick Singleton M.D. 12/18/2020 6:31 PM PG Care Time/CCT Total # of Minutes Spent Total Time Spent with Patient: Total time spent is greater than 50% in coordination of care (as documented) at patient's floor/unit and/or counseling patient: Coding Level of Care Code 53451 Subseq Obs Care Lvl 3 Diagnoses Retrosternal chest pain R07.2 CAD in [place] artery I25.10 SMITH (dyspnea on exertion) R06.00 Gall stones K80.20 HTN (hypertension) I10 Hypertension type: essential hypertension Paroxysmal atrial fibrillation I48.0 Type 2 diabetes mellitus E11.9 Diabetes mellitus alf insulin use: without exterminator helper use Diabetes mellitus complication status: without complication Sleep apnea G47.30 Sleep apnea type: unspecified type COPD, group D, by GOLD 2017 classification J44.9 GERD (gastroesophageal reflux disease) K21.9 Esophagitis presence: esophagitis presence not specified Chronic respiratory failure with hypoxia J96.11 Morbid obesity with BMI of 50.0-59.9, adult E66.01; Z68.43 Cardiac pacemaker Z95.0 (1) HTN (hypertension) Hypertension type: essential hypertension Qualified Code(s): I10 - Essential (primary) hypertension (2) Type 2 diabetes mellitus Diabetes mellitus exterminator helper insulin use: without alf use Diabetes mellitus complication status: without complication Qualified Code(s): E11.9 - Type 2 diabetes mellitus without complications (3) Sleep apnea Sleep apnea type: unspecified type Qualified Code(s): G47.30 - Sleep apnea, unspecified (4) GERD (gastroesophageal reflux disease) Esophagitis presence: esophagitis presence not specified Qualified Code(s): K21.9 - Gastro-esophageal reflux disease without esophagitis
[2020-12-18] MEDS ORDERED: ATORVASTATIN 40 MG TAB PO SCH (21:00)
[2020-12-18] MEDS: METOPROLOL SUCC 50MG EXT REL TAB PO SCH (21:09)
[2020-12-18] MEDS: PANTOprazole 40 MG TAB PO SCH (21:09)
[2020-12-19 06:37] LABS: INR 1.7 (0.9-1.1); Prothrombin Time 16.9 Seconds (9.0-12.0)
[2020-12-19 07:00] LABS: BUN Creatinine Ratio 21.3 (10-20); Calcium 9.2 mg/dl (8.5-10.1); Creatinine Clr Calc Pharmacy 51.9 ml/min; Est GFR (African American) 49.1; Est GFR (Non-African American) 42.3; Magnesium 2.4 mg/dl (1.8-2.4); Potassium 4.5 mmol/L (3.5-5.1)
[2020-12-19] MEDS: ALBUT/IPRATROP 3MG/0.5MG NEB 3 ML VIAL INH SCH ×3 (07:12→15:24)
[2020-12-19] MEDS: INSULIN ASPART 100 UNITS/ML 3 ML PEN SC SCH ×4 (09:11→17:34)
[2020-12-19] MEDS: PANTOprazole 40 MG TAB PO SCH (09:12)
[2020-12-19] MEDS: ASPIRIN 81 MG ECTAB PO SCH (09:12)
[2020-12-19] MEDS: WARFARIN SOD 3 MG TAB PO SCH (15:34)
--- NOTE | 2020-12-19 18:01 | Discharge Summary ---
Date of Service date of admission - December 17, 2020 date of discharge - December 19, 2020 Admission HPI Per Admitting Provider Ann Marie Pena is a 75yo C female with history of CAD, HTN, HLP presenting with chest pain. Patient reports that she has been having substernal chest discomfort ongoing since this AM. She describes discomfort/pressure 6/10 in severity - nonradiating/non-pleuritic/non-exertional. No associated shortness of breath/diaphoresis or dizziness. She did eat a pudding cup this afternoon which caused nausea and one episode of non-bloody/non-bilious emesis. She is currenlty on PO Prednisone for her COPD - approximately 3+ weeks into a 1 month course (ends on Monday). She takes 10mg daily. States that she is not very active at home. Denies exertional symptoms. She does occasionally experience chest pressure at rest. She follows with Cardiology. Last seen in August 2020 - scheduled for January 2021. Patient has received her Covid-19 vaccines Er Course: Metoprolol 200mg po, Albuterol neb, Coumadin 3mg PO, Atorvastatin 40mg po, Prednisone 10mg PO, Nitro paste Principal Diagnosis chest pain, ACS ruled out; outpatient stress test to be arranged Discharge Exam Constitutional + morbidly obese; no acute distress and no altered mental status ENMT external ear and nose normal, oropharynx normal Respiratory no respiratory distress Auscultation: + crackles (bases - minimal ); no wheezes Cardiovascular Rate/Rhythm: regular rate and + irregularly irregular Heart Sounds: normal S1 and normal S2; no murmur Vessels: posterior tibial pulses present and dorsalis pedis pulses present; no JVD Extremities: no edema Gastrointestinal (Abdomen) Inspection/Auscultation: normal bowel sounds; abdomen not distended Percussion/Palpation: + abdomen tender (minimal - high epigastric region ); no hepatosplenomegaly Psychiatric A+Ox3, euthymic affect Discharge Data Allergies Allergy/AdvReac Type Severity Reaction Status Date / Time fluticasone furoate Allergy Severe Swelling Verified 12/17/20 18:13 [From Trelegy Ellipta] of Lip/Tongue/Throat umeclidinium Allergy Severe Swelling Verified 12/17/20 18:13 [From Trelegy Ellipta] of Lip/Tongue/Throat vilanterol Allergy Severe Swelling Verified 12/17/20 18:13 [From Arya Elise] of Lip/Tongue/Throat cephalexin AdvReac Mild PT BECOMES Verified 12/17/20 18:13 ANXIOUS lisinopril AdvReac Mild COUGH Verified 12/17/20 18:13 Procedures Performed echocardiogram: * normal LV size with normal LV function; EF 55-60% * no visualized regional wall motion abnormalities however LV is poorly visualized * moderate concentric LVH * no significant valvular abnormalities although valves not well visualized * RV not well visualized Ordered Studies Chest X-Ray 12/17/20 16:51 SINGLE VIEW CHEST CLINICAL HISTORY: Atypical chest pain. Dyspnea. FINDINGS: An AP, portable, upright chest radiograph is compared to study dated 11/20/2020. A 2-lead cardiac pacemaker is unchanged in position and partially obscures the left mid chest. The heart is enlarged noting atherosclerotic calcification of the thoracic aorta. The pulmonary vasculature is noncongested. Emphysema and chronic interstitial thickening is similar to previous. There is bibasilar scarring/atelectasis. No airspace consolidation or large pleural effusion is identified. No pneumothorax is seen. The skeletal structures are osteopenic. The bony thorax is grossly intact. IMPRESSION: 1. Cardiomegaly and cardiac pacemaker. There is no radiographic evidence of congestive failure. 2. Emphysema. 3. No airspace consolidation or large pleural effusion is identified. ACT 112: Negative or not required by law. Electronically signed by: Jason Munoz M.D. 12/17/2020 5:15 PM Gallbladder Ultrasound 12/18/20 13:23 US gallbladder CLINICAL HISTORY: RUQ pain, stones; eval cholecystitis COMPARISON STUDY: CT of the abdomen January 03, 2017. FINDINGS: Hepatic echogenicity is increased. Note is made of a 1 cm left hepatic lobe cyst. There is no biliary ductal dilatation. The common bile duct measures 6 mm in caliber. There are multiple gallstones within the gallbladder. No sonographic Spicer sign was elicited. No gallbladder wall thickening. There is no pericholecystic fluid. Pancreatic body is normal. Head and tail are obscured. There is no right hydronephrosis. IMPRESSION: 1. Cholelithiasis. No sonographic evidence for acute cholecystitis. 2. No biliary ductal dilatation. 3. Hepatic steatosis. 4. Largely obscured pancreas. ACT 112: Negative or not required by law. Electronically signed by: Rick Singleton M.D. 12/18/2020 6:31 PM Hospital Course (1) Retrosternal chest pain: Despite her pain troponins were negative x 3. Pain did not recur. [id number] some of the features were similar to her NSTEMI symptoms in 2015. Tele with a.fib while hospitalized - rates largely controlled. Nothing reproducible on examination. No stress test or cath since her RCA stent in 2014. Discussion was had with her primary report developer at [facility]. Plan for outpatient stress test shortly after discharge. Will arrange lexiscan nuclear stress test. In meantime will continue her aspirin, statin, beta supa. Of note - echo did not show any obvious LV wall motion abnormalities. If pain is noncardiac possible etiologies include biliary tract disease, GERD/gastritis, etc. Prior CT a/p showed gallstones thus I obtained RUQ u/s. This confirmed gallstones but there were no signs of cholecystitis. In the event this was severe GERD her PPI was increased to bid dosing. Further outpatient work-up hinges on results of nuclear stress test. (2) CAD in [place] artery: Patient with CAD s/p NSTEMI on 10/20/14 with PCI placement (99% RCA stenosis s/p MIHIR at that time). Primary report developer - Mani Morfin MD. See above in "Chest pain." Trops neg x 3. Continue ASA 81mg daily. Continue Atorvastatin 40mg hs. Continue Metoprolol succinate 100mg po twice daily (just recently switched from qid metoprolol tartrate to extended release/succinate). (3) SMITH (dyspnea on exertion): This has been attributed to severe COPD over the last few months leading to initiation of prolonged steroid taper. She is currently on 10mg/day of prednisone. She has gained copious weight over the last year presumably due to frequent steroid use. She had crackles on exam during the visit. There was a question of whether the crackles and dyspnea on exertion were from pulmonary edema. IV lasix x 1 was given but patient did not have copious urine output and did not notice any difference in her pulmonary symptoms with such. Patient advised to f/u with her primary lay out technician for her advanced COPD. (4) Gall stones: As seen on prior CT and RUQ u/s obtained during the visit. There were no signs of acute cholecystitis on the ultrasound. Patient aware of gallstones. If outpatient cardiac work-up is negative consider GI referral to investigate GERD, gallstones, etc as cause of presenting pain. (5) HTN (hypertension): Controlled (6) Paroxysmal atrial fibrillation: h/o PAF but appears to now have permanent a.fib. Rates largely controlled with metoprolol. Patient on Coumadin. Was recently supratherapeutic with INR of 3.8 on 12/14. She was instructed to hold her dose on 12/14 and take 1mg on 12/15 then resume her normal dosage. INR on day of discharge was 1.7. Patient advised to resume her normal coumadin schedule (3mg six days/week and 2mg once weekly) and have repeat INR in 3 days. Of note - patient was started on metoprolol succinate in zoe of metoprolol tartrate during this visit. 200mg dose of metoprolol succinate caused transient hypotension. Thus, she was asked to take metoprolol succinate 100mg BID at home. (7) Type 2 diabetes mellitus: Last JufY0T=1.7 on 12/09/20 Diet control (8) Sleep apnea: CPAP HS (9) COPD, group D, by GOLD 2017 classification: With resulting chronic hypoxic resp failure, on home O2 2L continuously. Also on prolonged steroid taper - currently at 10mg/day. Did not appear to be in exacerbation during the visit. She reports that the prednisone will be decreased to 7.5mg/day starting on 12/21. (10) GERD (gastroesophageal reflux disease): increased her PPI to bid dosing as noted above (11) Chronic respiratory failure with hypoxia: stable on home O2 amount, 2 liters continuously. (12) Morbid obesity with BMI of 50.0-59.9, adult: BMI 54 (13) Cardiac pacemaker: Placed in setting of a.fib in the past [place] [facility] [place] for such Total Time Total Time Spent Total Time Spent (In Minutes): 50 Total Time Includes: Examination of the Patient, Discharge Planning, Medication Reconciliation and Communication With Other Providers Discharge Plan Discharge Items Patient Disposition: Home - Self-Care Reason For Visit: CHEST PAIN Discharge Diagnosis: Chest pain, no evidence of heart attack. Activity: As commented below Activity Comment: light activities until your stress test is complete Non-emergency contact: Primary Care Provider and Computer Aided Drafter Call non-emergency contact if: you have any medication questions, your symptoms worsen and you have a fever Follow-up/Referrals: Mani Morfin MD [Family Provider] - (1 week) Dakotah Holliday DO [Primary Care Provider] - (see Dr Holliday in 1 week ) Diet: Heart Healthy Addtl Attending Provider Instructions: Mrs Pena, You were admitted to the hospital for chest pain and vomiting. We performed several blood tests for your heart all of which were negative and therefore we found no evidence of heart attack. We obtained an ultrasound of your gall bladder. This showed that you have gallstones but the gall bladder did not appear actively sick. Additionally your liver tests were normal. COVID testing was negative. Echocardiogram (heart ultrasound) showed normal left heart function (squeezing ability/pumping ability). The right side of the heart may have slightly reduced pumping ability. This is likely due to your COPD. It has been several years since you have had a stress test. We want to ensure that the recent pain is NOT from your heart. Therefore we have set you up for a stress test. The stress test will be a chemical stress test. You are scheduled for a "Lexiscan Nuclear Stress Test" on December 24 at 930am. Please arrive at the hospital main entrance at 9am. You are not allowed to eat or drink for 4 hours prior to your arrival time. Please - no caffeinated beverages 24 hours prior to your stress test. Another possibility for your pain is that of severe reflux disease. While awaiting the stress test please change your omeprazole to pantoprazole. Take the pantoprazole 40mg twice daily. I have sent a prescription to your pharmacy for you. With respect to your COPD please continue your prednisone as previous. Stay on the 10mg dose as previously directed, then wean to 7.5mg as directed. Coumadin - Your INR today, 12/19, is 1.7. Please continue your usual coumadin dosing regimen of 2mg on Monday, and 3mg all other days. I would recommend an INR in 3-4 days to ensure stability. Finally, with respect to your metoprolol succinate medication, I would recommend that you take 100mg in the morning (1/2 tablet) and 100mg in the evening (1/2 tablet). This will provide good a.fib control and smooth out your blood pressures. Follow-up - 1. see Dr Holliday within [address] Morfin within 1 week 3. Stress test on December 24 at 930am (see above) Return to [facility] if - * you have to take nitroglycerin tablets for chest pain * you have recurrent chest pains * you have worsening shortness of breath despite your oxygen, all of your usual inhalers, etc * you have severe vomiting * you have to increase the oxygen on your oxygen tank because of shortness of breath, chest pain, etc * any other concerns Pending Studies at Discharge: Yes Studies:: echocardiogram Stand-Alone Forms: My [facility] Revolights, Smoking Cessation Medications and DC Order Prescriptions: New (DME) Oxygen Home Liters Per Minute See Rx Instructions .ROUTE .MEDSUPPLY Qty: 1 RF: 0 pantoprazole 40 mg tablet,delayed release (DR/EC) 40 mg PO BID Qty: 60 RF: 1 nitroglycerin 0.4 mg tablet, sublingual 0.4 mg sublingual Q5M PRN (Reason: chest pain) Qty: 1 RF: 0 Continued (DME) OneTouch Ultra Blue Test Strip strip See Dose Instructions .ROUTE .MEDSUPPLY Qty: 100 RF: 3 (DME) lancets [OneTouch Delica Lancets] 30 gauge misc See Dose Instructions .ROUTE .MEDSUPPLY Qty: 100 RF: 3 budesonide-formoterol [Symbicort] 160-4.5 mcg/actuation HFA aerosol inhaler 2 puff inhalation BID Qty: 3 RF: 1 Spiriva Respimat 2.5 mcg/actuation mist 2 inh inhalation QAM Qty: 3 RF: 1 albuterol sulfate [ProAir HFA] 90 mcg/actuation HFA aerosol inhaler 2 puff INH Q6H PRN (Reason: shortness of breath or wheezing) Qty: 3 RF: 3 prednisone 2.5 mg tablet 7.5 mg PO DAILY 30 Days Qty: 90 RF: 0 (DME) lancets [OneTouch Delica Lancets] 33 gauge misc See Dose Instructions .ROUTE .MEDSUPPLY Qty: 100 RF: 0 calcium carbonate [Calcium 600] 600 mg calcium (1,500 mg) tablet 600 mg PO HS RF: 0 atorvastatin 40 mg tablet 40 mg PO HS Qty: 90 RF: 3 coenzyme Q10 [Co Q-10] 100 mg capsule 100 mg PO DAILY RF: 0 aspirin 81 mg Tablet,Delayed Release (Dr/Ec) 81 mg PO QAM RF: 0 omega [id number]-omi-kdk-fish oil [Fish Oil] 1,000 mg (120 mg-180 mg) Capsule 1 cap PO QAM RF: 0 Senior Tabs 0.4-300-250 mg-mcg-mcg Tablet 1 tab PO DAILY RF: 0 acetaminophen [Mapap (acetaminophen)] 325 mg Tablet 650 mg PO Q4H PRN (Reason: pain) Qty: 30 RF: 0 warfarin 3 mg Tablet 3 mg PO 6XWK RF: 0 cholecalciferol (vitamin D3) [Vitamin D3] 125 mcg (5,000 unit) Tablet 125 mcg PO 5XWK RF: 0 Cbd 15 mg PO DAILY RF: 0 ipratropium-albuterol 0.5 mg-3 mg(2.5 mg base)/3 mL solution for nebulization 3 ml INHALATION QID RF: 0 warfarin 1 mg tablet 2 mg PO WK RF: 0 Changed metoprolol succinate 200 mg tablet extended release 24 hr 100 mg PO BID Qty: 90 RF: 3 Discontinued metoprolol succinate 50 mg Tablet Extended Release 24 Hr 50 mg PO QID RF: 0 Discharge Orders: Discharge Order (Routine); Ordered 12/19/20 Ordered By: Kenneth Maier Admission Data Admit Date/Time: 12/17/20 20:52 Attending Provider: Kenneth Maier Admit Provider: Kae Cyr Primary Care Provider: Dakotah Holliday Other Interventions: Discharge Summary Assessment (RN) Last Done: 12/19/20 17:36 Coding Level of Care Code 30641 OBS Care - Discharge Diagnoses Retrosternal chest pain R07.2 CAD in [place] artery I25.10 SMITH (dyspnea on exertion) R06.00 Gall stones K80.20 HTN (hypertension) I10 Hypertension type: essential hypertension Paroxysmal atrial fibrillation I48.0 Type 2 diabetes mellitus E11.9 Diabetes mellitus complication status: without complication Diabetes mellitus nursing home insulin use: without nursing home use Sleep apnea G47.30 Sleep apnea type: unspecified type COPD, group D, by GOLD 2017 classification J44.9 GERD (gastroesophageal reflux disease) K21.9 Esophagitis presence: esophagitis presence not specified Chronic respiratory failure with hypoxia J96.11 Morbid obesity with BMI of 50.0-59.9, adult E66.01; Z68.43 Cardiac pacemaker Z95.0
--- NOTE | 2020-12-19 21:47 | XCELERA ---
[id number]
== END 2020-12-19 18:58 | disposition home or self-care (01) ==
LOC: 2N 16:27 → ED 16:27 → SUATTDRO 20:52 → 2N 21:42

== ENCOUNTER 2024-07-27 22:23 | Inpatient (IN) ==
[2024-07-27] MEDS: ALBUTEROL 0.083% NEBU SOLN 3 ML VIAL NEB STA (22:38)
[2024-07-27 22:47] LABS: Basophils # (auto) 0.11 K/uL (0.00-0.20); Basophils % (auto) 0.7 %; Eosinophils # (auto) 0.05 K/uL (0.00-0.50); Eosinophils % (auto) 0.3 %; Hematocrit (blood only) 40.5 % (37.0-47.0); Hemoglobin 12.9 g/dl (12.0-16.0); Immature Granulocytes # (auto) 0.19 K/uL (0.01-0.20); Immature Granulocytes % (auto) 1.2 %; Lymphocytes # (auto) 1.42 K/uL (1.20-3.40); Lymphocytes % (auto) 8.6 %; Mean Corpuscular Hemoglobin 28.4 pg (25.0-34.0); Mean Corpuscular Hgb Conc 31.9 g/dL (32.0-36.0); Mean Corpuscular Volume 89.2 fL (80.0-100.0); Mean Platelet Volume 10.6 fL (9.4-12.4); Monocytes # (auto) 0.84 K/uL (0.11-0.59); Monocytes % (auto) 5.1 %; Neutrophils # (auto) 13.82 K/uL (1.40-6.50); Neutrophils % (auto) 84.1 %; Platelet Count 255 K/uL (130-400); RDW Coefficient of Variation 14.4 % (11.5-14.5); RDW Standard Deviation 46.7 fL (36.4-46.3); Red Blood Count 4.54 M/uL (4.20-5.40); White Blood Count 16.43 K/ul (4.8-10.8)
[2024-07-27 22:52] LABS: Base Excess VBG 1.7 mEq/L; HCO3 VBG 27 mmol/L; PCO2 VBG 45 mmHg (38-50); PO2 VBG 85 mmHg; pH VBG 7.39 (7.36-7.41)
[2024-07-27 23:23] LABS: Albumin Globulin Ratio 1.2 (0.9-2); Albumin Level 4.1 gm/dl (3.4-5.0); BUN Creatinine Ratio 22.5 (10-20); Bilirubin,Total 0.6 mg/dl (0.2-1.0); Creatinine Clr Calc Pharmacy 63.1 ml/min; Globulin 3.4 gm/dl (2.5-4.0); Magnesium 1.7 mg/dl (1.7-2.4); Potassium 4.9 mmol/L (3.5-5.1); Total Protein 7.5 gm/dl (6.0-8.3)
[2024-07-27 23:52] LABS: Adenovirus PCR Not Detected (NotDetected); Bordetella parapertussis PCR Not Detected (NotDetected); Bordetella pertussis PCR Not Detected (NotDetected); Chlamydia pneumoniae PCR Not Detected (NotDetected); Coronavirus 229E PCR Not Detected (NotDetected); Coronavirus CoV-2 (COVID19)PCR Not Detected (NotDetected); Coronavirus HKU1 PCR Not Detected (NotDetected); Coronavirus NL63 PCR Not Detected (NotDetected); Coronavirus OC43PCR Not Detected (NotDetected); Human Metapneumovirus PCR Not Detected (NotDetected); Influenza A PCR Not Detected (NotDetected); Influenza B PCR Not Detected (NotDetected); Mycoplasma pneumoniae PCR Not Detected (NotDetected); Parainfluenza Virus 1 PCR Not Detected (NotDetected); Parainfluenza Virus 2 PCR Not Detected (NotDetected); Parainfluenza Virus 3 PCR Not Detected (NotDetected); Parainfluenza Virus 4 PCR Not Detected (NotDetected); Respiratory Syncytial VirusPCR Not Detected (NotDetected); Rhinovirus/Enterovirus PCR Not Detected (NotDetected)
[2024-07-28 00:04] LABS: Troponin I High Sensitivity 19.8 pg/ml (0-14)
--- NOTE | 2024-07-28 00:04 | XRay Report ---
Exam(s): XR CXR 1 VIEW EXAM: XR Chest, 1 View CLINICAL HISTORY: Dyspnea. TECHNIQUE: Frontal view of the chest. COMPARISON: 03/07/2023. FINDINGS: Left subclavian dual-chamber pacemaker is unchanged. Heart is enlarged. Atherosclerotic calcifications of the aortic knob. Mild diffuse interstitial prominence greatest at lung bases suggesting pulmonary vascular congestion. No definite focal lobar pneumonia. No pleural effusion or pneumothorax. Bones are osteopenic. IMPRESSION: Mild diffuse interstitial prominence greatest at lung bases suggesting pulmonary vascular congestion. Electronically signed by: Timbo Spence M.D. 07/28/24 00:03 AM
[2024-07-28 00:39] LABS: Appearance Urine Clear (Clear); Bacteria Urine Automated None Seen (None Seen); Bilirubin Urine Negative (Negative); Blood Urine Negative (Negative); Cast Urine Automated 0-2 /lpf (0-2); Color Urine Yellow; Epithelial Cell Urine Auto 0-2 /hpf (0-2); Glucose Urine UA 3+ (Negative); Ketones Urine Negative (Negative); Leukocyte Esterase Urine Negative (Negative); Nitrite Urine Negative (Negative); Protein Urine 2+ (Negative); RBC Urine Automated 0-2 /hpf (0-2); Specific Gravity Urine 1.014 (1.000-1.030); Urobilinogen Urine Negative (Negative); WBC Urine Automated 0-5 /hpf (0-5)
--- NOTE | 2024-07-28 01:02 | History & Physical Report ---
Date of Service July 28, 2024 Assessment & Plan (1) Acute on chronic respiratory failure with hypoxemia: Plan: 79yo female with history of COPD, HTN, AF and [place] on CPAP presenting with 2-3 days of progressive dyspnea on exertion. Patient with acute on chronic resp iratory failure with hypoxia - baseline 3L supplemental O2 at home. Ddx to include COPD exacerbation. Less likely CHF as patient denies edema/orthopnea/weight gain, less likely PE as patient is anticoagulated on Apixaban - although with active bladder cancer - if patient does not improve would consider obtaining CTA. Does not endorse infectious symptoms to suspect PNA. -Admit to PCU -Continue supplemental O2 as needed to maintain SpO2 88-92% -Continuous pulse oximetry -DuoNeb q4h -Albuterol neb q 2 hours PRN -Solumedrol 40mg IV BID -Continue Formoterol/Budesonide or formulary equivalent -Azithromycin 500mg po now and 250mg po daily -Flutter valve and incentive spirometry -Mucinex BID -Magnesium x 2gm (2) Atrial fibrillation, permanent: Plan: Patient with atrial fibrillation permanent. She has dual chamber pacer in place and follows routinely with Cardiology -Continue Metoprolol 100mg po BID -Continue Digoxin, check level -Continue Apixaban (3) HTN (hypertension): Plan: Chronic. BP well controlled at present -Continue metoprolol 100mg po BID -Monitor BP (4) CAD in [place] artery: Plan: Chronic, stable. Patient denies chest pain. No ischemic changes on EKG. Mild elevation of troponin -Repeat troponin with AM labs -Continue ASA 81mg po daily -Continue Atorvastatin 40mg po qHS -Continue Metoprolol 100mg po BID (5) Mixed hyperlipidemia: Plan: Chronic. Stable -Continue statin (6) Sleep apnea: Plan: Chronic. Patient endorses compliance with home CPAP -Continue CPAP qHS with supplemental O2 (7) Type 2 diabetes mellitus: Plan: Patient with DM on Metformin therapy. Elevated BSG today at 301 following dose of steroids -Lantus 12u BID -ISS -Goal blood sugar 110 - 160 -Hold Metformin History of Present Illness Chief Complaint: shortness of breath Primary Care Provider: Dakotah Holliday DO Ann Marie Pena is a pleasant 79yo female with history of atrial fibrillation on Apixaban anticoagulation, HTN, DM, CAD and COPD (class D) presenting with progressive SOB. Patient reports that for the last 3 days she has had progressive SMITH. Patient with chronic hypoxic respiratory failure secondary to COPD and uses 3L of home O2 at baseline. She reports becoming very short of breath with minimal exertion in her home and decreased saturations into the 80's with ambulation. She has been taking her nebulizer treatments at home, 7-8 times daily. Reports that she does get some short-lived relief after her nebulizer treatments. Her chest feels tight on occasion when she is short of breath otherwise she denies chest pain, cough, wheeze, edema, orthopnea, weight gain, fevers, chills or sweats. No leg pain or cramping. She is compliant with her home medications and has not missed any Apixaban. In the ER patient with ongoing SMITH, saturations decreased to the 80's after ambulation to the bathroom requiring increased supplemental O2 via Oxymask. Presently on 3L NC and doing well. ER Course: Albuterol by EMS and in ER Solumedrol by EMS Allergies Allergy/AdvReac Type Severity Reaction Status Date / Time fluticasone furoate Allergy Severe Swelling Verified 06/13/24 13:23 [From Trelegy Ellipta] of Lip/Tongue/Throat umeclidinium Allergy Severe Swelling Verified 06/13/24 13:23 [From Trelegy Ellipta] of Lip/Tongue/Throat vilanterol Allergy Severe Swelling Verified 06/13/24 13:23 [From Trelegy Ellipta] of Lip/Tongue/Throat cephalexin AdvReac Mild Becomes Verified 06/13/24 13:23 anxious lisinopril AdvReac Mild Cough Verified 06/13/24 13:23 doxycycline AdvReac Elevated Verified 06/13/24 13:23 HR Home Medications Medication Instructions Recorded Confirmed Type aspirin 81 mg tablet,delayed 81 mg PO QAM 03/15/19 07/27/24 History release calcium carbonate (Calcium 600) 600 mg PO QAM 05/24/19 07/27/24 History [id number] acid 0.4 1 tab PO DAILY 10/16/19 07/27/24 History mg-lycopene 300 mcg-lutein 250 mcg tablet (Senior Tabs) cholecalciferol (vitamin D3) 125 125 mcg PO Q2D 12/17/20 07/27/24 History mcg (5,000 unit) tablet (Vitamin D3) nebulizer accessories #2 ea 06/11/21 07/27/24 Rx nebulizers #1 ea 06/11/21 07/27/24 Rx Incentive Spirometer #1 ea 10/14/22 07/27/24 Rx Flutter Valve #1 ea 10/26/22 07/27/24 Rx blood sugar diagnostic #300 ea 12/08/22 07/27/24 Rx lancets 30 gauge #300 ea 12/08/22 07/27/24 Rx CPAP Machine 01/30/23 07/27/24 History acetaminophen 500 mg capsule 500 mg PO Q6H PRN Pain 03/10/23 07/27/24 History ipratropium 0.5 mg-albuterol 3 mg 3 ml inhalation QID shortness of 03/01/24 07/27/24 Rx (2.5 mg base)/3 mL nebulization breath or wheezing #1,080 vials soln Oxygen Home 04/17/24 07/27/24 History metoprolol succinate 200 mg 100 mg (1/2 x 200 mg) PO BID #90 04/18/24 07/27/24 Rx tablet,extended release 24 hr tabs digoxin 125 mcg (0.125 mg) tablet 125 mcg PO QPM #90 tabs 05/20/24 07/27/24 Rx apixaban 5 mg tablet (Eliquis) 5 mg PO BID #180 tabs 06/04/24 07/27/24 Rx atorvastatin 40 mg tablet 40 mg PO HS #90 tabs 06/04/24 07/27/24 Rx metformin 500 mg tablet 500 mg PO BID #180 tabs 06/04/24 07/27/24 Rx pantoprazole 40 mg tablet,delayed 40 mg PO QAM #90 tabs 06/04/24 07/27/24 Rx release budesonide-formoterol HFA 160 2 puff inhalation BID 06/13/24 07/27/24 History mcg-4.5 mcg/actuation aerosol inhaler nitroglycerin 0.4 mg sublingual 0.4 mg sublingual Q5M PRN chest 06/13/24 07/27/24 Rx tablet pain #25 Tabs albuterol sulfate 90 mcg/actuation 2 puff inhalation Q6H PRN 07/16/24 07/27/24 Rx aerosol inhaler shortness of breath or wheezing #3 Inhalers tiotropium bromide 2.5 2 inh inhalation QAM #3 Inhalers 07/16/24 07/27/24 Rx mcg/actuation mist for inhalation (Spiriva Respimat) Past Med/Surg History Problem List (Updated 07/28/24 @ 01:22 by Kae Cyr DO) Acute on chronic respiratory failure with hypoxemia Intermittent palpitations Morbid obesity Type 2 diabetes mellitus with morbid obesity Atrial fibrillation, permanent Follows with [facility] cardiology HTN (hypertension) (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 Findings noted in vascular office visit (Dr. Gibbs) from same day. Asymptomatic. Recommendations to reevaluate in one year. Bladder tumor Bladder cancer Medical History Fatty infiltration of liver Dietary counseling and surveillance History of pacemaker Dual-chamber PPM. [employer]. Last pacer check 01/2023. Gall stones Hypercholesterolemia Type 2 diabetes mellitus Diet controlled Osteoarthritis Anxiety On home oxygen therapy 2-3L NC continuous NSTEMI (non-ST elevated myocardial infarction) 2014 Surgical History History of bladder surgery cancer History of anesthesia reaction "Stopped breathing" with second to last colonoscopy at [facility], no similar issues with more recent anesthesia per patient. Per chart review, only colonoscopy reports at [facility] done 2018 and 2015. Both done with MAC sedation and no noted anesthesia complications/issues per available records. S/P placement of cardiac pacemaker History of colonoscopy Status post trigger finger release left hand thumb History of arthroscopy of left knee History of arthroscopy of right knee History of tooth extraction Status post laser cataract surgery of both eyes + had procedure done after cataract removal History of heart artery stent 2014, stent x1 History of cardiac cath 2014 Family History Grandmother (Maternal) Diabetes Mother Colorectal cancer Father Alzheimer disease Hypertension Sister Hypertension Aunt Breast cancer Daughter Bladder cancer Other No family history of adverse response to anesthesia Denies family history of Ovarian cancer Prostate cancer Myocardial infarction Social History Smoking Status: Former smoker Tobacco Type: Cigarettes Age Started Using Tobacco: 16; Age Quit Using Tobacco: 74; packs per day: 1; Second Hand Exposure: No; Do You Dip or Chew Tobacco: No; Hx Alcohol Use: No Hx Substance Use: No Preferred Language: Yoruba Communication Ability: Effective Visual Impairment: Limited Hearing Ability: Normal 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: No marital status: / Current Living Situation: Alone current occupational status: retired How many Children do You have: 1 Feels Safe at Home: Yes Childhood Exposure to Second-Hand Smoke: Yes Diet: regular caffeine: Yes Dental Care, Regularly: Yes Physical Activity Frequency: Does not Exercise Seatbelt Use: always Sunscreen Use: No (does not go in the sun) Assistive Devices: Cane, CPAP, Glasses, Nebulizer, Oxygen - Continuous, Walker and Wheelchair Review of Systems Review of Systems: All systems reviewed & are unremarkable except as noted in HPI & below Physical Exam Physical Exam: General: patient resting comfortably, NAD, non-toxic in appearance, AA&O x 4 Skin: warm, dry, intact, no rashes or lesions HEENT: NC/AT, PERRL, EOMI, anicteric sclera, conjunctiva without injection, external ear normal to inspection and nontender, nares patent, moist mucus membranes, dentition intact, no oropharyngeal lesions, neck supple, trachea mid line, no LAD, no thyromegaly, no JVD Heart: +S1/S2, irregularly irregular, 3/6 TIERRA at LSB Lungs: diminished breath sounds bilaterally, no rales/rhonchi or wheezes Abd: +BS, soft, NT/ND, no masses/organomegaly/ascites Ext: warm, 2+ pulses in UE/LE bilaterally, no clubbing/cyanosis or edema Neuro: nonfocal, patient AA&O x 4, speech intact, no facial droop, moving all extremities on command with equal strength 5/5 Results & Data Results & Data Vital Signs (Past 12 Hours) Vital Signs Temp Pulse Pulse Resp BP BP Pulse Ox 07/28/24 00:17 108 H 35 H 96 07/28/24 00:15 38 H 93 07/28/24 00:10 130 H 42 H 80 L 07/27/24 22:40 118 H 07/27/24 22:40 115 H 20 94 07/27/24 22:31 105 H 38 H 157/121 H 94 07/27/24 22:31 93 07/27/24 22:24 36.8 C 116 H 23 186/122 H 93 O2 Del Method O2 Flow Rate 07/28/24 00:17 Oxymask 5 07/28/24 00:15 Oxymask 6 07/28/24 00:10 Nasal Cannula 5 07/27/24 22:40 07/27/24 22:40 Nasal Cannula 3 07/27/24 22:31 Nasal Cannula 3 07/27/24 22:31 Nasal Cannula 3 07/27/24 22:24 Room Air Laboratory Results Laboratory Results WBC 16.43 K/ul (4.8-10.8) H 07/27/24 22:33 RBC 4.54 M/uL (4.20-5.40) 07/27/24 22:33 Hgb 12.9 g/dl (12.0-16.0) 07/27/24 22:33 Hct 40.5 % (37.0-47.0) 07/27/24 22:33 MCV 89.2 fL (80.0-100.0) 07/27/24 22:33 MCH 28.4 pg (25.0-34.0) 07/27/24 22:33 MCHC 31.9 g/dL (32.0-36.0) L 07/27/24 22:33 RDW Std Deviation 46.7 fL (36.4-46.3) H 07/27/24 22:33 RDW Coeff of Mark 14.4 % (11.5-14.5) 07/27/24 22:33 Plt Count 255 K/uL (130-400) 07/27/24 22:33 MPV 10.6 fL (9.4-12.4) 07/27/24 22:33 Immature Gran % (Auto) 1.2 % 07/27/24 22:33 Neut % (Auto) 84.1 % 07/27/24 22:33 Lymph % (Auto) 8.6 % 07/27/24 22:33 [place] % (Auto) 5.1 % 07/27/24 22: Eos % (Auto) 0.3 % 07/27/24 22:33 Baso % (Auto) 0.7 % 07/27/24 22:33 Neut # (Auto) 13.82 K/uL (1.40-6.50) H 07/27/24 22: Lymph # (Auto) 1.42 K/uL (1.20-3.40) 07/27/24 22: [place] # (Auto) 0.84 K/uL (0.11-0.59) H 07/27/24 22: Eos # (Auto) 0.05 K/uL (0.00-0.50) 07/27/24 22: Baso # (Auto) 0.11 K/uL (0.00-0.20) 07/27/24 22: Immature Gran # (Auto) 0.19 K/uL (0.01-0.20) 07/27/24 22:33 VBG pH 7.39 (7.36-7.41) 07/27/24 22:43 VBG pCO2 45 mmHg (38-50) 07/27/24 22:43 VBG pO2 85 mmHg 07/27/24 22:43 VBG HCO3 27 mmol/L 07/27/24 22:43 VBG O2 Saturation 97.0 % 07/27/24 22:43 VBG Base Excess 1.7 mEq/L 07/27/24 22:43 Sodium 135 mmol/L (136-145) L 07/27/24 22:33 Potassium 4.9 mmol/L (3.5-5.1) 07/27/24: Chloride 100 mmol/L (98-107) 07/27/24 22: Carbon Dioxide 26 mmol/L (21-32) 07/27/24 22:33 Anion Gap 9 (3-11) 07/27/24 22:33 BUN 20 mg/dl (6-23) 07/27/24 22: Creatinine 0.89 mg/dl (0.6-1.2) 07/27/24 22: Est Cr Clr Drug Dosing 63.1 ml/min 07/27/24 22:33 eGFR 66.32 07/27/24 22:33 BUN/Creatinine Ratio 22.5 (10-20) H 07/27/24 22:33 Glucose 301 mg/dl (70-99(Fasting)) H* 07/27/24 22:33 Calcium 10.0 mg/dl (8.6-10.3) 07/27/24 22:33 Magnesium 1.7 mg/dl (1.7-2.4) 07/27/24 22:33 Total Bilirubin 0.6 mg/dl (0.2-1.0) 07/27/24 22:33 AST 40 U/L (13-39) H 07/27/24 22:33 ALT 49 U/L (7-52) 07/27/24 22:33 Alkaline Phosphatase 63 U/L (34-104) 07/27/24 22:33 Troponin I High Sens 19.8 pg/ml (0-14) H 07/27/24 22:33 B-Natriuretic Peptide 233 pg/ml (0-100) H 07/27/24 22:43 Total Protein 7.5 gm/dl (6.0-8.3) 07/27/24 22:33 Albumin 4.1 gm/dl (3.4-5.0) 07/27/24 22:33 Globulin 3.4 gm/dl (2.5-4.0) 07/27/24 22:33 Albumin/Globulin Ratio 1.2 (0.9-2) 07/27/24 22:33 Urine Color Yellow 07/28/24 00:05 Urine Appearance Clear (Clear) 07/28/24 00:05 Urine pH 6.0 (4.5-7.5) 07/28/24 00:05 Ur Specific [place] 1.014 (1.000-1.030) 07/28/24 00:05 Urine Protein 2+ (Negative) H 07/28/24 00:05 Urine Glucose (UA) 3+ (Negative) H 07/28/24 00:05 Urine Ketones Negative (Negative) 07/28/24 00:05 Urine Blood Negative (Negative) 07/28/24 00:05 Urine Nitrite Negative (Negative) 07/28/24 00:05 Urine Bilirubin Negative (Negative) 07/28/24 00:05 Urine Urobilinogen Negative (Negative) 07/28/24 00:05 Ur Leukocyte Esterase Negative (Negative) 07/28/24 00:05 Urine WBC (Auto) 0-5 /hpf (0-5) 07/28/24 00:05 Urine RBC (Auto) 0-2 /hpf (0-2) 07/28/24 00:05 U Hyaline Cast (Auto) 0-2 /lpf (0-2) 07/28/24 00:05 U Epithel Cells (Auto) 0-2 /hpf (0-2) 07/28/24 00:05 Urine Bacteria (Auto) None Seen (None Seen) 07/28/24 00:05 Adenovirus (PCR) Not Detected (NotDetected) 07/27/24 22:43 B. pertussis DNA (PCR) Not Detected (NotDetected) 07/27/24 22:43 B.parapertussis DNA PCR Not Detected (NotDetected) 07/27/24 22:43 C. pneumoniae DNA (PCR) Not Detected (NotDetected) 07/27/24 22:43 Coronavirus OC43 (PCR) Not Detected (NotDetected) 07/27/24 22:43 Coronavirus HKU1 (PCR) Not Detected (NotDetected) 07/27/24 22:43 Coronavirus 229E (PCR) Not Detected (NotDetected) 07/27/24 22:43 SARS-CoV-2 (PCR) Not Detected (NotDetected) 07/27/24 22:43 Coronavirus NL63 (PCR) Not Detected (NotDetected) 07/27/24 22:43 Human Metapneumovir PCR Not Detected (NotDetected) 07/27/24 22:43 Influenza Type A (PCR) Not Detected (NotDetected) 07/27/24 22:43 Influenza Type B (PCR) Not Detected (NotDetected) 07/27/24 22:43 M. pneumoniae (PCR) Not Detected (NotDetected) 07/27/24 22:43 Parainfluenza 1 (PCR) Not Detected (NotDetected) 07/27/24 22:43 Parainfluenza 2 (PCR) Not Detected (NotDetected) 07/27/24 22:43 Parainfluenza 3 (PCR) Not Detected (NotDetected) 07/27/24 22:43 Parainfluenza 4 (PCR) Not Detected (NotDetected) 07/27/24 22:43 RSV (PCR) Not Detected (NotDetected) 07/27/24 22:43 Entero/Rhino (PCR) Not Detected (NotDetected) 07/27/24 22:43 Impressions Chest X-Ray 07/27/24 22:30 Exam(s): XR CXR 1 VIEW EXAM: XR Chest, 1 View CLINICAL HISTORY: Dyspnea. TECHNIQUE: Frontal view of the chest. COMPARISON: 03/07/2023. FINDINGS: Left subclavian dual-chamber pacemaker is unchanged. Heart is enlarged. Atherosclerotic calcifications of the aortic knob. Mild diffuse interstitial prominence greatest at lung bases suggesting pulmonary vascular congestion. No definite focal lobar pneumonia. No pleural effusion or pneumothorax. Bones are osteopenic. IMPRESSION: Mild diffuse interstitial prominence greatest at lung bases suggesting pulmonary vascular congestion. Electronically signed by: Timbo Spence M.D. 07/28/24 00:03 AM ECG Additional Comments: EKG with AF with RVR at 112bpm, normal axis, QRS=72, no acute ischemic changes Code Status & VTE Plan VTE Prophylaxis Plan VTE Prophylaxis will be ordered: Yes PG Care Time/CCT Total # of Minutes Spent Total Time Spent with Patient: Total time spent is greater than 50% in coordination of care (as documented) at patient's floor/unit and/or counseling patient: Coding Level of Care Code 80146 INT INP/OBS CARE 3/75MIN Diagnoses Acute on chronic respiratory failure with hypoxemia J96.21 Atrial fibrillation, permanent I48.21 Essential hypertension I10 Hypertension type: essential hypertension CAD in [place] artery I25.10 Mixed hyperlipidemia E78.2 Sleep apnea, unspecified type G47.30 Sleep apnea type: unspecified type Type 2 diabetes mellitus without complication, without long-term current use of insulin E11.9 Diabetes mellitus fpc insulin use: without 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
[2024-07-28] MEDS ORDERED: DEXTROSE 50% 50 ML SYRINGE IV PRN (02:00)
[2024-07-28] MEDS ORDERED: ALBUTEROL 0.083% NEBU SOLN 3 ML VIAL NEB PRN (02:00)
[2024-07-28] MEDS ORDERED: GLUCOSE 10 TAB/TUBE PO PRN (02:00)
[2024-07-28] MEDS ORDERED: GLUCOSE 40% GEL 15 GM TUBE PO PRN (02:00)
[2024-07-28] MEDS ORDERED: ONDANSETRON INJ 2 MG/ML 2 ML VIAL IV PRN (02:00)
[2024-07-28] MEDS ORDERED: GLUCAGON FOR INJ 1 MG VIAL SQ PRN (02:00)
[2024-07-28] MEDS ORDERED: CARBOHYDRATES FOR HYPOGLYCEMIA PO PRN (02:00)
[2024-07-28] MEDS: ALBUT/IPRATROP 3MG/0.5MG NEB 3 ML VIAL NEB SCH (02:29)
[2024-07-28] MEDS: MAGNESIUM SULFATE / D5W 1 GM/100 ML BAG IV SCH (02:43)
[2024-07-28] MEDS: INSULIN ASPART PER UNIT CHARGE SC SCH (02:44)
[2024-07-28] MEDS: AZITHROMYCIN 250 MG TAB PO ONE (02:44)
--- NOTE | 2024-07-28 03:14 | Emergency Department Note ---
History of Present Illness General Chief complaint: Shortness of Breath/Dyspnea Stated complaint: SOB Time Seen by Provider: 07/27/24 22:24 History of Present Illness Maximum Pain Intensity: 5 This is a 79-year-old female presenting to the emergency department for evaluation of shortness of breath symptoms worsening over the past few days. Patient has past medical history significant for diabetes, chronic atrial fibrillation, pacemaker, CAD, chronic dyspnea, tobacco use disorder, COPD. Patient is on home oxygen, roughly 2 to 3 L at all times. Tonight the patient had dramatic worsening of her breathing, and is not able to ambulate even to the bathroom without severe dyspnea. Her pulse oximeter at home has been in the low 80s and upper 70s with movement. It does seem to improve when she sits and rests. She has used her albuterol nebulizer at home without significant improvement of her breathing. She elected to contact the ambulance and now presents to the ER for evaluation. She rates her discomfort a 5/10. No fevers or chills. No recent travel history. Home Medications Medication Instructions Recorded Confirmed Type aspirin 81 mg tablet,delayed 81 mg PO QAM 03/15/19 07/27/24 History release calcium carbonate (Calcium 600) 600 mg PO QAM 05/24/19 07/27/24 History ordxwjhn-bnd-fxuwn acid 0.4 1 tab PO DAILY 10/16/19 07/27/24 History mg-lycopene 300 mcg-lutein 250 mcg tablet (Senior Tabs) cholecalciferol (vitamin D3) 125 125 mcg PO Q2D 12/17/20 07/27/24 History mcg (5,000 unit) tablet (Vitamin D3) nebulizer accessories #2 ea 06/11/21 07/27/24 Rx nebulizers #1 ea 06/11/21 07/27/24 Rx Incentive Spirometer #1 ea 10/14/22 07/27/24 Rx Flutter Valve #1 ea 10/26/22 07/27/24 Rx blood sugar diagnostic #300 ea 12/08/22 07/27/24 Rx lancets 30 gauge #300 ea 12/08/22 07/27/24 Rx CPAP Machine 01/30/23 07/27/24 History acetaminophen 500 mg capsule 500 mg PO Q6H PRN Pain 03/10/23 07/27/24 History ipratropium 0.5 mg-albuterol 3 mg 3 ml inhalation QID shortness of 03/01/24 07/27/24 Rx (2.5 mg base)/3 mL nebulization breath or wheezing #1,080 vials soln Oxygen Home 04/17/24 07/27/24 History metoprolol succinate 200 mg 100 mg (1/2 x 200 mg) PO BID #90 04/18/24 07/27/24 Rx tablet,extended release 24 hr tabs digoxin 125 mcg (0.125 mg) tablet 125 mcg PO QPM #90 tabs 05/20/24 07/27/24 Rx apixaban 5 mg tablet (Eliquis) 5 mg PO BID #180 tabs 06/04/24 07/27/24 Rx atorvastatin 40 mg tablet 40 mg PO HS #90 tabs 06/04/24 07/27/24 Rx metformin 500 mg tablet 500 mg PO BID #180 tabs 06/04/24 07/27/24 Rx pantoprazole 40 mg tablet,delayed 40 mg PO QAM #90 tabs 06/04/24 07/27/24 Rx release budesonide-formoterol HFA 160 2 puff inhalation BID 06/13/24 07/27/24 History mcg-4.5 mcg/actuation aerosol inhaler nitroglycerin 0.4 mg sublingual 0.4 mg sublingual Q5M PRN chest 06/13/24 07/27/24 Rx tablet pain #25 Tabs albuterol sulfate 90 mcg/actuation 2 puff inhalation Q6H PRN 07/16/24 07/27/24 Rx aerosol inhaler shortness of breath or wheezing #3 Inhalers tiotropium bromide 2.5 2 inh inhalation QAM #3 Inhalers 07/16/24 07/27/24 Rx mcg/actuation mist for inhalation (Spiriva Respimat) Allergies Allergy/AdvReac Type Severity Reaction Status Date / Time fluticasone furoate Allergy Severe Swelling Verified 06/13/24 13:23 [From Trelegy Ellipta] of Lip/Tongue/Throat umeclidinium Allergy Severe Swelling Verified 06/13/24 13:23 [From Trelegy Ellipta] of Lip/Tongue/Throat vilanterol Allergy Severe Swelling Verified 06/13/24 13:23 [From Trelegy Ellipta] of Lip/Tongue/Throat cephalexin AdvReac Mild Becomes Verified 06/13/24 13:23 anxious lisinopril AdvReac Mild Cough Verified 06/13/24 13:23 doxycycline AdvReac Elevated Verified 06/13/24 13:23 HR Past Med/Surg History Problem List (Updated 07/28/24 @ 06:13 by Demond Olivo PA-C) Acute on chronic respiratory failure with hypoxemia (Acute) Intermittent palpitations Morbid obesity Type 2 diabetes mellitus with morbid obesity Atrial fibrillation, permanent [place] [facility] [place] HTN (hypertension) (Chronic) [facility] (current) use of anticoagulants Cardiac pacemaker CAD in [place] artery (Chronic) stent x1 (2014) Mixed hyperlipidemia Sleep apnea CPAP + 2-3L [place] and COPD overlap syndrome Chronic respiratory failure with hypoxia Chronic dyspnea History of tobacco abuse (~07/2019) COPD, group D, by GOLD 2017 classification GERD (gastroesophageal reflux disease) Laryngopharyngeal reflux (Chronic) Lumbar back pain Carotid artery stenosis "less than 50% stenosis in the right ICA, and about 70% stenosis of her left ICA" per 08/15/22 carotid ultrasound. Findings noted in vascular office visit (Dr. Gibbs) from same day. Asymptomatic. Recommendations to reevaluate in one year. Bladder tumor Bladder cancer Medical History Fatty infiltration of liver Dietary counseling and surveillance History of pacemaker Dual-chamber PPM. [employer]. Last pacer check 01/2023. Gall stones Hypercholesterolemia Type 2 diabetes mellitus Diet controlled Osteoarthritis Anxiety On home oxygen therapy 2-3L [place] continuous NSTEMI (non-ST elevated myocardial infarction) 2014 Surgical History History of bladder surgery cancer History of anesthesia reaction "Stopped breathing" with second to last colonoscopy at [facility], no similar issues with more recent anesthesia per patient. Per chart review, only colonoscopy reports at [facility] done 2018 and 2015. Both done with MAC sedation and no noted anesthesia complications/issues per available records. S/P placement of cardiac pacemaker History of colonoscopy Status post trigger finger release left hand thumb History of arthroscopy of left knee History of arthroscopy of right knee History of tooth extraction Status post laser cataract surgery of both eyes + had procedure done after cataract removal History of heart artery stent 2014, stent x1 History of cardiac cath 2014 Family History Grandmother (Maternal) Diabetes Mother Colorectal cancer Father Alzheimer disease Hypertension Sister Hypertension Aunt Breast cancer Daughter Bladder cancer Other No family history of adverse response to anesthesia Denies family history of Ovarian cancer Prostate cancer Myocardial infarction Social History Smoking Status: Former smoker Tobacco Type: Cigarettes Age Started Using Tobacco: 16; Age Quit Using Tobacco: 74; packs per day: 1; Second Hand Exposure: No; Do You Dip or Chew Tobacco: No; Hx Alcohol Use: No Hx Substance Use: No Preferred Language: Nauruan Communication Ability: Effective Visual Impairment: Limited Hearing Ability: Normal Mechanic Insulator Required: No Beliefs That Will Affect Care: None marital status: / Current Living Situation: Alone current occupational status: retired How many Children do You have: 1 Feels Safe at Home: Yes Childhood Exposure to Second-Hand Smoke: Yes Diet: regular caffeine: Yes Dental Care, Regularly: Yes Physical Activity Frequency: Does not Exercise Seatbelt Use: always Sunscreen Use: No (does not go in the sun) Assistive Devices: CPAP, Glasses and Oxygen - Continuous Review of Systems A total of 10 systems reviewed and were otherwise negative Physical Exam Vital Signs Vital Signs - 24 hr 07/27/24 22:24 07/27/24 22:31 07/27/24 22:31 Temperature 36.8 C Temperature Source Oral Pulse Rate 116 H Pulse Rate [Right Finger] Pulse Rate from SpO2 Sensor Pulse Rhythm Regular Pulse Rhythm [Right Finger] Pulse Strength Normal Pulse Strength [Right Finger] Respiratory Rate 23 Respiratory Effort / Characteristics Non-Labored Non-Labored Respiratory Depth Normal Normal Respiratory Pattern Regular Regular Blood Pressure 186/122 H Blood Pressure [Right Arm] Blood Pressure Mean 143 Blood Pressure Mean [Right Arm] Blood Pressure Position [Right Arm] Pulse Oximetry 93 93 Oxygen Delivery Method Room Air Nasal Cannula Oxygen Flow Rate 3 Sepsis Recent Fever Within 48 Hours No Sepsis New/Unexplained Change in Mental Status N/A Sepsis Action Taken by Nursing Physician Notified 07/27/24 22:31 07/27/24 22:40 07/27/24 22:40 Temperature Temperature Source Pulse Rate 115 H 118 H Pulse Rate [Right Finger] 105 H Pulse Rate from SpO2 Sensor Pulse Rhythm Regular Pulse Rhythm [Right Finger] Regular Pulse Strength Pulse Strength [Right Finger] Normal Respiratory Rate 38 H 20 Respiratory Effort / Characteristics Non-Labored Respiratory Depth Normal Respiratory Pattern Regular Blood Pressure Blood Pressure [Right Arm] 157/121 H Blood Pressure Mean Blood Pressure Mean [Right Arm] 133 Blood Pressure Position [Right Arm] Lying Pulse Oximetry 94 94 Oxygen Delivery Method Nasal Cannula Nasal Cannula Oxygen Flow Rate 3 3 Sepsis Recent Fever Within 48 Hours Sepsis New/Unexplained Change in Mental Status Sepsis Action Taken by Nursing 07/27/24 23:33 07/28/24 00:10 07/28/24 00:15 Temperature Temperature Source Pulse Rate 115 H Pulse Rate [Right Finger] 130 H Pulse Rate from SpO2 Sensor 112 H Pulse Rhythm Pulse Rhythm [Right Finger] Irregular Pulse Strength Pulse Strength [Right Finger] Respiratory Rate 20 42 H 38 H Respiratory Effort / Characteristics Spontaneous Labored SOB on Exertion Spontaneous Labored SOB on Exertion Respiratory Depth Respiratory Pattern Tachypnea Blood Pressure 136/91 Blood Pressure [Right Arm] Blood Pressure Mean 106 Blood Pressure Mean [Right Arm] Blood Pressure Position [Right Arm] Pulse Oximetry 93 80 L 93 Oxygen Delivery Method Nasal Cannula Nasal Cannula Oxymask Oxygen Flow Rate 3 5 6 Sepsis Recent Fever Within 48 Hours Sepsis New/Unexplained Change in Mental Status Sepsis Action Taken by Nursing 07/28/24 00:17 Temperature Temperature Source Pulse Rate Pulse Rate [Right Finger] 108 H Pulse Rate from SpO2 Sensor Pulse Rhythm Pulse Rhythm [Right Finger] Irregular Pulse Strength Pulse Strength [Right Finger] Respiratory Rate 35 H Respiratory Effort / Characteristics Spontaneous Labored SOB on Exertion Respiratory Depth Respiratory Pattern Tachypnea Blood Pressure Blood Pressure [Right Arm] Blood Pressure Mean Blood Pressure Mean [Right Arm] Blood Pressure Position [Right Arm] Pulse Oximetry 96 Oxygen Delivery Method Oxymask Oxygen Flow Rate 5 Sepsis Recent Fever Within 48 Hours Sepsis New/Unexplained Change in Mental Status Sepsis Action Taken by Nursing VITALS: Vitals are noted on the nurse's note and reviewed by myself. Vital signs with hypoxia and tachycardia GENERAL: Chronically ill-appearing white female who appears clinically short of breath HEAD: Normocephalic atraumatic. NECK: Supple without nuchal rigidity. No lymphadenopathy. No thyromegaly. Cervical spine is nontender. HEART: Irregularly irregular LUNGS: Coarse throughout ABDOMEN: Positive normal bowel sounds x 4. Soft, nontender, without masses or organomegaly. No guarding or rebound tenderness. MUSCULOSKELETAL: No muscle atrophy, erythema, or edema noted. Full range of motion in all extremities. Course Administered Medications Acetaminophen (Acetaminophen 325 Mg Tab) 650 mg PO Q4H PRN PRN Reason: Pain or Fever Stop: 08/27/24 01:59 Last Admin: 07/28/24 04:23 Dose: 650 mg Documented By: SEAN Albuterol (Albut/Ipratrop 3mg/0.5mg Neb 3 Ml Vial) 3 ml NEB Q4R SAMUEL; Protocol Stop: 08/27/24 02:59 Last Admin: 07/28/24 02:29 Dose: 3 ml Documented By: MIKEY Insulin Aspart (Insulin Aspart Per Unit Charge) 0 units SC ACHS SAMUEL Stop: 08/27/24 02:14 Last Admin: 07/28/24 02:44 Dose: 5 units Documented By: SEAN Co-signed By: SHANNA Discontinued Medications Albuterol (Albuterol 0.083% Nebu Soln 3 Ml Vial) 2.5 mg NEB NOW STA; Protocol Stop: 07/27/24 22:35 Last Admin: 07/27/24 22:38 Dose: 2.5 mg Documented By: MIKEL Azithromycin (Azithromycin 250 Mg Tab) 500 mg PO NOW ONE Stop: 07/28/24 02:16 Last Admin: 07/28/24 02:44 Dose: 500 mg Documented By: SEAN Magnesium Sulfate/Dextrose (Magnesium Sulfate / D5w) 1 gm in 100 mls @ 50 mls/hr IV Q2H [facility] Stop: 07/28/24 05:59 Last Admin: 07/28/24 04:23 Dose: 50 mls/hr Documented By: Infusion: 07/28/24 04:23 Dose: Infused Documented By: Admin: 07/28/24 02:43 Dose: 50 mls/hr Documented By: SEAN Medical Decision Making Differential Diagnosis Differential diagnosis includes, but is not limited to: Myocardial infarction, dysrhythmia, pericarditis, pneumothorax, aortic aneurysm/dissection, DVT/PE, anxiety, GERD, PUD, electrolyte imbalance, thyroid disorder, pneumonia, bronchitis, pancreatitis, and others Laboratory Data 07/27/24 22:33 07/27/24 22:33 Lab Results 07/27/24 07/27/24 07/28/24 Range/Units 22:33 22:43 00:05 WBC 16.43 H (4.8-10.8) K/ul RBC 4.54 (4.20-5.40) M/uL Hgb 12.9 (12.0-16.0) g/dl Hct 40.5 (37.0-47.0) % MCV 89.2 (80.0-100.0) fL MCH 28.4 (25.0-34.0) pg MCHC 31.9 L (32.0-36.0) g/dL RDW Std Deviation 46.7 H (36.4-46.3) fL RDW Coeff of Mark 14.4 (11.5-14.5) % Plt Count 255 (130-400) K/uL MPV 10.6 (9.4-12.4) fL Immature Gran % (Auto) 1.2 % Neut % (Auto) 84.1 % Lymph % (Auto) 8.6 % Coleman % (Auto) 5.1 % Eos % (Auto) 0.3 % Baso % (Auto) 0.7 % Neut # (Auto) 13.82 H (1.40-6.50) K/uL Lymph # (Auto) 1.42 (1.20-3.40) K/uL Coleman # (Auto) 0.84 H (0.11-0.59) K/uL Eos # (Auto) 0.05 (0.00-0.50) K/uL Baso # (Auto) 0.11 (0.00-0.20) K/uL Immature Gran # (Auto) 0.19 (0.01-0.20) K/uL VBG pH 7.39 (7.36-7.41) VBG pCO2 45 (38-50) mmHg VBG pO2 85 mmHg VBG HCO3 27 mmol/L VBG O2 Saturation 97.0 % VBG Base Excess 1.7 mEq/L Sodium 135 L (136-145) mmol/L Potassium 4.9 (3.5-5.1) mmol/L Chloride 100 (98-107) mmol/L Carbon Dioxide 26 (21-32) mmol/L Anion Gap 9 (3-11) BUN 20 (6-23) mg/dl Creatinine 0.89 (0.6-1.2) mg/dl Est Cr Clr Drug Dosing 63.1 ml/min eGFR 66.32 BUN/Creatinine Ratio 22.5 H (10-20) Glucose 301 H* (70-99(Fasting)) mg/dl Calcium 10.0 (8.6-10.3) mg/dl Magnesium 1.7 (1.7-2.4) mg/dl Total Bilirubin 0.6 (0.2-1.0) mg/dl AST 40 H (13-39) U/L ALT 49 (7-52) U/L Alkaline Phosphatase 63 (34-104) U/L Troponin I High Sens 19.8 H (0-14) pg/ml B-Natriuretic Peptide 233 H (0-100) pg/ml Total Protein 7.5 (6.0-8.3) gm/dl Albumin 4.1 (3.4-5.0) gm/dl Globulin 3.4 (2.5-4.0) gm/dl Albumin/Globulin Ratio 1.2 (0.9-2) Urine Color Yellow Urine Appearance Clear (Clear) Urine pH 6.0 (4.5-7.5) Ur Specific [place] 1.014 (1.000-1.030) Urine Protein 2+ H (Negative) Urine Glucose (UA) 3+ H (Negative) Urine Ketones Negative (Negative) Urine Blood Negative (Negative) Urine Nitrite Negative (Negative) Urine Bilirubin Negative (Negative) Urine Urobilinogen Negative (Negative) Ur Leukocyte Esterase Negative (Negative) Urine WBC (Auto) 0-5 (0-5) /hpf Urine RBC (Auto) 0-2 (0-2) /hpf U Hyaline Cast (Auto) 0-2 (0-2) /lpf U Epithel Cells (Auto) 0-2 (0-2) /hpf Urine Bacteria (Auto) None Seen (None Seen) Adenovirus (PCR) Not Detected (NotDetected) B. pertussis DNA (PCR) Not Detected (NotDetected) B.parapertussis DNA PCR Not Detected (NotDetected) C. pneumoniae DNA (PCR) Not Detected (NotDetected) Coronavirus OC43 (PCR) Not Detected (NotDetected) Coronavirus HKU1 (PCR) Not Detected (NotDetected) Coronavirus 229E (PCR) Not Detected (NotDetected) SARS-CoV-2 (PCR) Not Detected (NotDetected) Coronavirus NL63 (PCR) Not Detected (NotDetected) Human Metapneumovir PCR Not Detected (NotDetected) Influenza Type A (PCR) Not Detected (NotDetected) Influenza Type B (PCR) Not Detected (NotDetected) M. pneumoniae (PCR) Not Detected (NotDetected) Parainfluenza 1 (PCR) Not Detected (NotDetected) Parainfluenza 2 (PCR) Not Detected (NotDetected) Parainfluenza 3 (PCR) Not Detected (NotDetected) Parainfluenza 4 (PCR) Not Detected (NotDetected) RSV (PCR) Not Detected (NotDetected) Entero/Rhino (PCR) Not Detected (NotDetected) Imaging Data Radiologist's Impression: Chest X-Ray 07/27/24 22:30 Exam(s): XR CXR 1 VIEW EXAM: XR Chest, 1 View CLINICAL HISTORY: Dyspnea. TECHNIQUE: Frontal view of the chest. COMPARISON: 03/07/2023. FINDINGS: Left subclavian dual-chamber pacemaker is unchanged. Heart is enlarged. Atherosclerotic calcifications of the aortic knob. Mild diffuse interstitial prominence greatest at lung bases suggesting pulmonary vascular congestion. No definite focal lobar pneumonia. No pleural effusion or pneumothorax. Bones are osteopenic. IMPRESSION: Mild diffuse interstitial prominence greatest at lung bases suggesting pulmonary vascular congestion. Electronically signed by: Timbo Spence M.D. 07/28/24 00:03 AM MDM Narrative Physical exam and history were performed. Nursing notes, EMR, and Medication List were personally reviewed. No social concerns were identified as barriers to patients care. Case was discussed with my attending. Patient appears to have breathing difficulty bring her to the ER. Symptoms are distinctly worse with ambulation and require higher than her normal supplemental oxygen. IV access was established and labs were obtained. Patient was given Solu-Medrol prehospital, and this was not repeated in the ER. She was given an albuterol nebulizer. Bio fire performed. An order was placed for continuous cardiac monitoring. The monitor shows a rate of 82 with normal sinus rhythm. Patient's blood work is as above and was reviewed. She does have an elevated white count of 16,000. She does not have significant anemia or gross electrolyte imbalance. BNP is slightly elevated at 233. Initial troponin is slightly elevated at 19.8. Urine without distinct evidence of infection. BioFire negative. Chest x-ray reviewed by myself and radiology showing no obvious pneumonia, however there may be vascular congestion. Patient did have significant hypoxemia with any effort of ambulation. Even going a few steps to and from the bathroom would cause the patient to drop below 80%. Ultimately she was placed on oxime mask at 5 L, and this did seem to help with her symptoms. Overall the patient does not appear well for discharge home. She has several comorbidities that may be contributing to her status. I did discuss the case with the on-call hospitalist team who agreed to evaluate her here in the ER. Escalation of care is felt to be necessary. Please see the hospitalist dictation for further patient course, plan, disposition. The chart was completed utilizing [employer] Speech Voice Recognition Software. Grammatical errors, random word insertions, pronoun errors, and incomplete sentences are an occasional consequence of this system due to software limitations, ambient noise, and hardware issues. Any formal questions or concerns about the content, text, or information contained within the body of this dictation should be directly addressed to the provider for clarification. Impression & Plan Acute on chronic respiratory failure with hypoxemia Discharge Plan Visit Data Chief Complaint: Shortness of Breath/Dyspnea Stated Complaint: SOB ED Provider: Paulo Rodriguez ED Midlevel Provider: Demond Olivo Discharge Problem: Acute on chronic respiratory failure with hypoxemia Patient Disposition: Admitted As Inpatient Discharge Instructions Interventions: ED Discharge Assessment Last Done: 07/28/24 01:44
[2024-07-28] MEDS: ACETAMINOPHEN 325 MG TAB PO PRN (04:23)
[2024-07-28] MEDS: BUDESONIDE/FORMOTEROL FUMARATE 160/4.5 60 PUFFS/INHALER INH SCH (08:41)
[2024-07-28] MEDS: LANTUS PER UNIT CHARGE SQ SCH (08:42)
[2024-07-28] MEDS: APIXABAN 5 MG TABLET PO SCH (08:43)
[2024-07-28] MEDS: methylPREDNISolone 40 MG in SYRINGE 0 ML IV SCH (08:43)
[2024-07-28] MEDS: METOPROLOL SUCC 50MG EXT REL TAB PO SCH (08:43)
[2024-07-28] MEDS: ASPIRIN 81 MG ECTAB PO SCH (08:44)
[2024-07-28] MEDS: PANTOprazole 40 MG TAB PO SCH (08:44)
[2024-07-28] MEDS ORDERED: AZITHROMYCIN 250 MG TAB PO ONE (09:00)
[2024-07-28] MEDS ORDERED: BUDESONIDE/FORMOTEROL FUMARATE 160/4.5 60 PUFFS/INHALER INH SCH (09:00)
[2024-07-28] MEDS ORDERED: methylPREDNISolone 125 MG/2 ML VIAL IV SCH (09:00)
--- NOTE | 2024-07-28 12:13 | Electrocardiogram Report ---
Test Reason : Blood Pressure : */* mmHG Vent. Rate : 112 BPM Atrial Rate : * BPM P-R Int : * ms QRS Dur : 72 ms QT Int : 288 ms P-R-T Axes : * 61 39 degrees QTcB Int : 393 ms Atrial fibrillation with rapid ventricular response Nonspecific ST abnormality Abnormal ECG When compared with ECG of 26-Oct-2023 15:13, (unconfirmed) Vent. rate has increased by 40 bpm Confirmed by Aren Smith ([id number]) on 07/28/2024 12:13:21 PM Referred By: REFERRED SELF Confirmed By: Aren Smith
[2024-07-28] MEDS: COUGH DROP (SUGAR FREE) LOZ 24 LOZ/1 BOX BUCCAL ONE (12:33)
[2024-07-28] MEDS: COUGH DROP (SUGAR FREE) LOZ 24 LOZ/1 BOX BUCCAL STA (12:47)
--- NOTE | 2024-07-28 13:19 | Communication Note ---
Date of Service: July 28, 2024 (1) Acute on chronic respiratory failure with hypoxemia: 79yo female with history of COPD, HTN, AF and [place] on CPAP presenting with 2-3 days of progressive dyspnea on exertion. Patient with acute on chronic respiratory failure with hypoxia - baseline 3L supplemental O2 at home. Ddx to include COPD exacerbation. Less likely CHF as patient denies edema/orthopnea/weight gain, less likely PE as patient is anticoagulated on Apixaban - although with active bladder cancer - if patient does not improve would consider obtaining CTA. Does not endorse infectious symptoms to suspect PNA. -Continue supplemental O2 as needed to maintain SpO2 88-92% -DuoNeb q4h -Albuterol neb q 2 hours PRN -Solumedrol 40mg IV BID -Continue Formoterol/Budesonide or formulary equivalent -Azithromycin 500mg po now and 250mg po daily -Flutter valve and incentive spirometry -Mucinex BID -Magnesium x 2gm (2) Atrial fibrillation, permanent: Patient with atrial fibrillation permanent. She has dual chamber pacer in place and follows routinely with Cardiology -Continue Metoprolol 100mg po BID -Continue Digoxin, check level -Continue Apixaban (3) HTN (hypertension): Chronic. BP well controlled at present -Continue metoprolol 100mg po BID -Monitor BP (4) Type 2 diabetes mellitus: Patient with DM on Metformin therapy. -Lantus 12u BID -ISS -Goal blood sugar 110 - 160 -Hold Metformin Chronic conditions: HLD: statin Sleep apnea: CPAP CAD: ASA, metoprolol, statin
[2024-07-28] MEDS ORDERED: PHARMACY GLYCEMIC MGMT CONSULT PRN (17:08)
[2024-07-28] MEDS: LANTUS PER UNIT CHARGE SQ ONE (17:28)
[2024-07-28] MEDS: DIGOXIN 0.125 MG TAB PO SCH (17:29)
[2024-07-28] MEDS: ATORVASTATIN 40 MG TAB PO SCH (19:59)
[2024-07-29 05:08] LABS: Hematocrit (blood only) 39.1 % (37.0-47.0); Hemoglobin 12.5 g/dl (12.0-16.0); Mean Corpuscular Hemoglobin 28.3 pg (25.0-34.0); Mean Corpuscular Volume 88.5 fL (80.0-100.0); Mean Platelet Volume 10.7 fL (9.4-12.4); Platelet Count 264 K/uL (130-400); RDW Coefficient of Variation 14.2 % (11.5-14.5); RDW Standard Deviation 46.1 fL (36.4-46.3); Red Blood Count 4.42 M/uL (4.20-5.40); White Blood Count 18.39 K/ul (4.8-10.8)
[2024-07-29 05:27] LABS: Calcium 10.3 mg/dl (8.6-10.3); Creatinine Clr Calc Pharmacy 50.4 ml/min; Potassium 4.7 mmol/L (3.5-5.1)
[2024-07-29] MEDS ORDERED: LANTUS PER UNIT CHARGE SC SCH (09:00)
[2024-07-29] MEDS: AZITHROMYCIN 250 MG TAB PO SCH (09:06)
--- NOTE | 2024-07-29 14:03 | Pharmacy Report ---
Pharmacy Glycemic Short Note 2 - Date of Service July 29, 2024 - Glycemic Short BSG Results (Last 24 hours): 07/28/24 07/28/24 07/28/24 16:56 16:57 20:52 Glucose POC Glucose 305 H* 303 H* 217 H 07/29/24 07/29/24 07/29/24 04:57 07:55 11:50 Glucose 250 H POC Glucose 180 H 146 H OUTPATIENT ANTIDIABETIC REGIMEN: * Metformin 500mg po BID HbA1c 7.6% on 06/13/24 ASSESSMENT: * 79 year old female admitted yesterday for shortness of breath/dyspnea. Pharmacy was consulted for glycemic management while she is admitted. * A total of 88 units of insulin were given yesterday (42 units were basal and 46 units were bolus). BSG were elevated through the day yesterday (ranged from 217-305mg/dL). This is likely due to stressors including the presence of steroids (methylprednisolone 40mg iv bid) and probable lung infection (on azithromycin). * Bolus insulin parameters were tightened significantly with dinner last evening. These parameters will be continued today as BSGs have significantly improved. * Fasting BSG was 180mg/dL this morning. Lantus 20units x 1 was ordered and a Lantus scale based on BSG was ordered for this evening (0-10 units) since the steroids are still on board. PLAN FOR INPATIENT GLYCEMIC CONTROL: * Hold outpatient oral diabetes medications * Basal insulin * Lantus 20 units SQ x 1 this morning, then lantus scale this evening (BSG < 140 hold; 140-180 give 5 units; > 180 give 10 units). * Bolus insulin * NovoLog per scale ACHS or Q6hrs while NPO * Goal Range: Low 110 mg/dL - High 140 mg/dL * Correction Factor: 15 mg/dL/unit * Nutritional / Prandial insulin per carb ratio of 1 unit per 5 grams CHO consumed
--- NOTE | 2024-07-29 17:04 | Hospitalist Progress Note ---
Date of Service July 29, 2024 Assessment & Plan (1) Acute on chronic respiratory failure with hypoxemia: Plan: 79yo female with history of COPD, HTN, AF and ORVILLE on CPAP presenting with 2-3 days of progressive dyspnea on exertion. Patient with acute on chronic resp iratory failure with hypoxia - baseline 3L supplemental O2 at home. Ddx to include COPD exacerbation. Less likely CHF as patient denies edema/orthopnea/weight gain, less likely PE as patient is anticoagulated on Apixaban - although with active bladder cancer - if patient does not improve would consider obtaining CTA. Does not endorse infectious symptoms to suspect PNA. -Continue supplemental O2 as needed to maintain SpO2 88-92%. Baseline in 3L -DuoNeb q4h -Albuterol neb q 2 hours PRN -Solumedrol 40mg IV decreased to daily -Continue Formoterol/Budesonide or formulary equivalent -Azithromycin 500mg po now and 250mg po daily -Flutter valve and incentive spirometry, -Mucinex BID (2) Type 2 diabetes mellitus: Plan: Patient with DM on Metformin therapy. Elevated BSG today at 301 following dose of steroids - hold metformin Pharmacy glycemic consult in the setting of high dose steroid use (3) Atrial fibrillation, permanent: Plan: Patient with atrial fibrillation permanent. She has dual chamber pacer in place and follows routinely with Cardiology -Continue Metoprolol 100mg po BID -Continue Digoxin, level low but rates appropriate will not uptitrate -Continue Apixaban Plan Chronic stable medical conditions: * Sleep apnea - continue CPAP with O2 * HLD - continue State * CAD - continue ASA, statin, metoprolol. Mild elevated of trop to 21 and downtrending. No ischemic changes. Do not suspect ACS. * HTN - continue metoprolol DVT proh: Eliquis Dispo: continued inpatient stay Admission and Anticipated Discharge Date Admission Date: July 28, 2024 Supervising Physician Co-Signing Physician Notes PA Supervision Note: I did not personally see or examine the patient today, but I verified all [place] points of JULIO C Salomon's assessment and plan with the following exceptions/additions: None Subjective patient seen after lunch, resting in bed with her CPAP on. States she is unable to tell how she really feels because she has not been out of bed yet, I encouraged her to do so States she was having difficulty sleeping at home when she has been able to sleep. So that is reassuring telemetry: A-fib 70s Review of Systems Review of Systems: All systems reviewed & are unremarkable except as noted in Subjective Physical Exam 2 Physical Exam: General: NAD, VS as above Resp: normal respiratory effort, lungs clear to auscultation CV: afib, no murmur, Abd: normal bowel sounds, non tender, no hepatosplenomegaly Extremities: Moves all extremities, no edema Neuro: A&O x3, Skin: intact, no lesions noted Results & Data Results & Data Vital Signs (Past 12 Hours) Vital Signs Temp Pulse Resp BP Pulse Ox O2 Del Method O2 Flow Rate 07/29/24 14:57 87 20 95 Nasal Cannula 3 07/29/24 14:53 97.3 F L 85 18 100/63 95 Room Air 07/29/24 12:00 98.1 F 77 20 104/70 93 Nasal Cannula 3 07/29/24 11:35 82 18 94 Nasal Cannula 3.5 07/29/24 08:00 Nasal Cannula 3 07/29/24 07:35 97.3 F L 70 20 116/73 90 CPAP 07/29/24 07:17 84 18 94 CPAP 4 Laboratory Results CBC and chemistry reviewed PG Care Time/CCT Total # of Minutes Spent Total Time Spent with Patient: Total time spent is greater than 50% in coordination of care (as documented) at patient's floor/unit and/or counseling patient: Coding Level of Care Code 22691 SUB INP/OBS CARE 235MIN Diagnoses Acute on chronic respiratory failure with hypoxemia J96.21 Type 2 diabetes mellitus without complication, without long-term current use of insulin E11.9 Diabetes mellitus complication status: without complication Diabetes mellitus terminal make up operator insulin use: without detention use Atrial fibrillation, permanent I48.21 (2) Type 2 diabetes mellitus Diabetes mellitus complication status: without complication Diabetes mellitus detention insulin use: without detention use Qualified Code(s): E11.9 - Type 2 diabetes mellitus without complications
[2024-07-29] MEDS: LANTUS PER UNIT CHARGE SC SCH (22:10)
[2024-07-30 07:53] VITALS: TEMP 97.3
[2024-07-30] MEDS: methylPREDNISolone 40 MG in SYRINGE 0 ML IV SCH (08:03)
[2024-07-30] MEDS: LANTUS PER UNIT CHARGE SC SCH (08:59)
--- NOTE | 2024-07-30 10:27 | Discharge Summary ---
Discharge Summary Date of Service July 30, 2024 Principal Dx & Hospital Course #1 = Principal Diagnosis (1) Acute on chronic respiratory failure with hypoxemia: 79yo female with history of COPD, HTN, AF and ORVILLE on CPAP presenting with 2-3 days of progressive dyspnea on exertion. Patient with acute on chronic respiratory failure with hypoxia - baseline 3L supplemental O2 at home. Ddx to include COPD exacerbation. Less likely CHF as patient denies ed elfego/orthopnea/weight gain, less likely PE as patient is anticoagulated on Apixaban - although with active bladder cancer. Does not endorse infectious symptoms to suspect PNA. Ann Marie was treated with IV solumedrol and PO azithromycin. She has improved and stable on her baseline 3L. Able to ambulate around the room, maintaining oxygen saturations of 91% and feeling very close to her baseline. Confirmed she has Duonebs at home that she is able to use. Discharge with PO prednisone taper and azithromycin to finish the course. Continue home inhalers. Continue FV/IS (2) Type 2 diabetes mellitus: Patient with DM on Metformin therapy. Elevated BSG today at 301 following dose of steroids Steroid amount decreased and received insulin while inpatient. Okay to resume metformin at discharge. (3) Atrial fibrillation, permanent: Patient with atrial fibrillation permanent. She has dual chamber pacer in place and follows routinely with Cardiology -Continue Metoprolol 100mg po BID -Continue Digoxin, level low but rates appropriate will not uptitrate -Continue Apixaban Plan Chronic stable medical conditions: * Sleep apnea - continue CPAP with O2 * HLD - continue State * CAD - continue ASA, statin, metoprolol. Mild elevated of trop to 21 and downtrending. No ischemic changes. Do not suspect ACS. * HTN - continue metoprolol Dispo: discharge to home today, PCP follow up next week. Notes For Next Care Provider Medication Changes From Visit prednisone taper azithromycin x 2 days Admission HPI Per Admitting Provider Ann Marie Pena is a pleasant 79yo female with history of atrial fibrillation on Apixaban anticoagulation, HTN, DM, CAD and COPD (class D) presenting with progressive SOB. Patient reports that for the last 3 days she has had progressive SMITH. Patient with chronic hypoxic respiratory failure secondary to COPD and uses 3L of home O2 at baseline. She reports becoming very short of breath with minimal exertion in her home and decreased saturations into the 80's with ambulation. She has been taking her nebulizer treatments at home, 7-8 times daily. Reports that she does get some short-lived relief after her nebulizer treatments. Her chest feels tight on occasion when she is short of breath otherwise she denies chest pain, cough, wheeze, edema, orthopnea, weight gain, fevers, chills or sweats. No leg pain or cramping. She is compliant with her home medications and has not missed any Apixaban. In the ER patient with ongoing SMITH, saturations decreased to the 80's after am bulation to the bathroom requiring increased supplemental O2 via Oxymask. Presently on 3L NC and doing well. ER Course: Albuterol by EMS and in ER Solumedrol by EMS Discharge Exam General: NAD, VS as above, sitting up in bed, pleasant Resp: normal respiratory effort, lungs clear to auscultation CV: afib, no murmur, Abd: normal bowel sounds, non tender, no hepatosplenomegaly Extremities: Moves all extremities, no edema Neuro: A&O x3, Skin: intact, no lesions noted Discharge Plan Discharge Items Patient Disposition: Home - Self-Care Reason For Visit: DYSPNEA, HYPOXIA Discharge Diagnosis: COPD exacerbation Activity: Resume your previous activity Non-emergency contact: Primary Care Provider Call non-emergency contact if: you have any medication questions, your symptoms worsen, your pain is concerning for you and your temperature is above 101 Follow-up/Referrals: Dakotah Holliday DO [Primary Care Provider] - 08/06/24 11:30 am (Hospital follow up on August 06 at 11:30) Diet: Carb Consistent or DM2 Addtl Attending Provider Instructions: Ms. Pena, You were hospitalized after having worsening shortness of breath, this was found to be a COPD exacerbation. You have improved greatly with steroids and antibiotics. You will be discharged home with a prednisone steroid taper and two additional days of antibiotics. Please start both of these tomorrow, 07/31. You have been given today's dose at the hospital. You should continue on your home level of 3L of oxygen and use your CPAP at night. Continue to use the duonebs as needed at home for shortness of breath or wheezing. Please continue to use the flutter valve at home. No other changes to your home medications. Please follow up with your PCP next week. --- Activity: You can do normal everyday activities as your body allows. Take rest breaks if you feel tired. Do not overexert. Stop activity if you have pain, shortness of breath or feel dizzy. Follow-up appointments: Make an appointment with your primary care physician within one week of disch arge. A copy of this summary will be sent to them. Every time you see your primary care physician, or any other doctor, bring your medication list, and a list of questions. CONTACT YOUR PRIMARY CARE PROVIDER if you experience any of the following: Shortness of breath or difficulty breathing Fevers or chills Feeling tired with normal activity or experiencing dizziness or fainting Difficulty following your treatment plan, or difficulty taking medications CALL 911 OR GO TO THE EMERGENCY DEPARTMENT if you experience any of the follo wing: Severe abdominal pain or nausea/vomiting Severe chest pain, or chest pain that radiates (moves) to your jaw or arm Sudden, severe shortness of breath or difficulty breathing Thank you for allowing us to participate in your care. Stephenie Salomon PA-C Pending Studies at Discharge: No Stand-Alone Forms: My [facility] Isoflux, Smoking Cessation Medications and DC Order Prescriptions: New azithromycin 250 mg Tablet 250 mg PO QAM Qty: 2 0RF prednisone 10 mg tablet See Taper PO DIRECTED Qty: 24 0RF Taper: Taper, Blank 40 mg DAILY for 3 Days 30 mg DAILY for 2 Days 20 mg DAILY for 2 Days 10 mg DAILY for 2 Days Rx Instructions: see taper instructions Continued (DME) nebulizers [facility] See Rx Instructions .Route Qty: 1 0RF Rx Instructions: As directed (DME) nebulizer accessories Kit See Rx Instructions .Route Qty: 2 5RF Rx Instructions: Nebulizer kits and supplies (DME) Incentive Spirometer Misc See Rx Instructions .Route Qty: 1 0RF Rx Instructions: As directed (DME) Flutter Valve Device See Rx Instructions .Route Qty: 1 0RF Rx Instructions: As directed ipratropium-albuterol 0.5 mg-3 mg(2.5 mg base)/3 mL solution for nebulization 3 ml INHALATION QID Qty: 1080 0RF digoxin 125 mcg (0.125 mg) tablet 125 mcg PO QPM Qty: 90 3RF Eliquis 5 mg tablet 5 mg PO BID Qty: 180 3RF atorvastatin 40 mg tablet 40 mg PO HS Qty: 90 3RF Hold Instructions: transaminitis metformin 500 mg tablet 500 mg PO BID Qty: 180 2RF pantoprazole 40 mg tablet,delayed release (DR/EC) 40 mg PO QAM Qty: 90 3RF albuterol sulfate 90 mcg/actuation HFA aerosol inhaler 2 puff INH Q6H PRN (Reason: shortness of breath or wheezing) Qty: 3 3RF Spiriva Respimat 2.5 mcg/actuation mist 2 inh inhalation QAM Qty: 3 3RF calcium carbonate [Calcium 600] 600 mg calcium (1,500 mg) tablet 600 mg PO QAM metoprolol succinate 200 mg tablet extended release 24 hr 100 mg PO BID Qty: 90 3RF (DME) blood sugar diagnostic Strip See Dose Instructions .ROUTE .MEDSUPPLY Qty: 300 3RF Dose Instruction: As directed Rx Instructions: Test 3 times daily (DME) lancets 30 gauge misc See Dose Instructions .ROUTE .MEDSUPPLY Qty: 300 3RF Dose Instruction: As directed Rx Instructions: Test 3 times daily (DME) CPAP Machine Misc See Rx Instructions .Route Rx Instructions: CPAP with 9L O2 HS and PRN (DME) Oxygen Home Liters Per Minute See Rx Instructions .ROUTE .MEDSUPPLY Rx Instructions: 2-3 liters NC O2 continuously. budesonide-formoterol 160-4.5 mcg/actuation HFA aerosol inhaler 2 puff inhalation BID nitroglycerin 0.4 mg tablet, sublingual 0.4 mg sublingual Q5M PRN (Reason: chest pain) Qty: 25 5RF Patient Comments: never has taken Rx Instructions: max 3 tabs in 15 minutes aspirin 81 mg Tablet,Delayed Release (Dr/Ec) 81 mg PO QAM Senior Tabs 0.4-300-250 mg-mcg-mcg Tablet 1 tab PO DAILY acetaminophen 500 mg Capsule 500 mg PO Q6H PRN (Reason: Pain) cholecalciferol (vitamin D3) [Vitamin D3] 125 mcg (5,000 unit) Tablet 125 mcg PO Q2D Discharge Orders: Discharge Order (Routine); Ordered 07/30/24 Ordered By: Stephenie Parson/Other Patient Handouts: Chest and Lung Problems, COPD Diabetes, Healthy Meals for Diabetes, Type 2 Diabetes Admission Data Admit Date/Time: 07/28/24 01:01 Attending Provider: Kassandra Ellis Admit Provider: Kae Cyr Primary Care Provider: Dakotah Holliday Other Providers: Kae Cyr Other Interventions: Discharge Summary Assessment (RN) Last Done: 07/30/24 10:49 Hospital Stay Data Consultations 07/28/24 00:19 ED Decision to Admit Stat Pending Results Patient Have Any Pending Studies at Discharge: No Discharge Instructions Given to Patient (Per Discharging Provider) Ms. Pena, Quentin were hospitalized after having worsening shortness of breath, this was found to be a COPD exacerbation. You have improved greatly with steroids and antibiotics. You will be discharged home with a prednisone steroid taper and two additional days of antibiotics. Please start both of these tomorrow, 07/31. You have been given today's dose at the hospital. You should continue on your home level of 3L of oxygen and use your CPAP at night. Continue to use the duonebs as needed at home for shortness of breath or wheezing. Please continue to use the flutter valve at home. No other changes to your home medications. Please follow up with your PCP next week. --- Activity: You can do normal everyday activities as your body allows. Take rest breaks if you feel tired. Do not overexert. Stop activity if you have pain, shortness of breath or feel dizzy. Follow-up appointments: Make an appointment with your primary care physician within one week of discharge. A copy of this summary will be sent to them. Every time you see your primary care physician, or any other doctor, bring your medication list, and a list of questions. CONTACT YOUR PRIMARY CARE PROVIDER if you experience any of the following: Shortness of breath or difficulty breathing Fevers or chills Feeling tired with normal activity or experiencing dizziness or fainting Difficulty following your treatment plan, or difficulty taking medications CALL 911 OR GO TO THE EMERGENCY DEPARTMENT if you experience any of the following: Severe abdominal pain or nausea/vomiting Severe chest pain, or chest pain that radiates (moves) to your jaw or arm Sudden, severe shortness of breath or difficulty breathing Thank you for allowing us to participate in your care. Stephenie Salomon PA-C Supervising Physician Co-Signing Physician Notes PA Supervision Note: I did not personally see or examine the patient today, but I verified all [place] points of JULIO C Salomon's assessment and plan with the following exceptions/additions: None Total Time Total Time Spent Total Time Spent (In Minutes): Time spent day of discharge 40 minutes including direct patient care, medication reconciliation, documentation, review of labs and images, and coordination of care. Coding Level of Care Code 77570 INP/OBS DISCH >30 MIN Diagnoses Acute on chronic respiratory failure with hypoxemia J96.21 Type 2 diabetes mellitus without complication, without long-term current use of insulin E11.9 Diabetes mellitus complication status: without complication Diabetes mellitus usp insulin use: without usp use Atrial fibrillation, permanent I48.21
[2024-07-30 10:51] VITALS: BP 127/73
[2024-07-30 10:56] VITALS: PULSE 82; RESP 18; O2SAT 96
== END 2024-07-30 12:14 | disposition home or self-care (01) | DRG 189 ==
LOC: ED 22:23 → SUATTDRO 07-28 01:01 → 4W 07-28 01:01